=== PATIENT | female | born 1945 | race Caucasian/White ===

== ENCOUNTER → 2016-11-15 | Outpatient (CLI) | payer BC ==
[~2016-11-15] MED LIST: ATEN-173 PO; C COMPLEX PO; CAL PO; GLC500 PO; GLYB5TAB8 PO; MULT-506 PO; SUPER B PO
--- NOTE | 2016-11-15 10:59 | DIAGNOSTIC IMAGING REPORT ---
DOPPLER ULTRASOUND OF THE RENAL ARTERIES CLINICAL HISTORY: Hypertension. COMPARISON STUDY: Renal ultrasound dated 08/24/2015. Abdominal CT dated 04/26/2007. TECHNIQUE: Doppler sonography of the renal arteries was performed to assess renal artery stenosis. Images are reviewed in the transverse and longitudinal planes. FINDINGS: The kidneys demonstrate cortical atrophy and are without hydronephrosis. On the right, intrarenal arterial resistive indices range from 0.74 to 0.78. Intrarenal arterial waveforms are normal with brisk upstrokes. The right renal arterial waveform is normal, and velocities within the right renal artery measure up to 100 cm/sec. The right renal vein is patent. On the left, intrarenal arterial resistive indices measure 0.80. Intrarenal arterial waveforms are normal with brisk upstrokes. The left renal arterial waveform is normal, and velocities within the left renal artery measure up to 111 cm/sec. The left renal vein is patent. The abdominal aorta is patent. Velocities within the abdominal aorta measure up to 166 cm/s. IMPRESSION: There is no sonographic evidence of renal artery stenosis. Electronically signed by: Zak Collado M.D. 11/15/2016 10:57 AM Dictated Date/Time: 11/15/2016 10:54 AM
== END | disposition home or self-care (01) ==
LOC: C.ULTR 09:50
PROVIDERS: ATTEND Nurse Practitioner
DX: I10 Essential (primary) hypertension (principal)

== ENCOUNTER → 2016-11-19 | Outpatient (CLI) | payer BC ==
[2016-11-19 12:25] LABS: BASO % 0.3 %; BASO ABS # 0.02 K/uL (0-0.2); COMPLETE YES; EOS % 3.9 %; HEMATOCRIT 36.1 % (37-47); IG% 0.2 %; LYMPH % 27.1 %; LYMPH ABS # 1.58 K/uL (1.2-3.4); MEAN CELL VOLUME 96.8 fL (80-100); MEAN CORPUSCULAR HGB CONC 35.2 g/dl (32-36); MEAN PLATELET VOLUME 9.3 fL (7.4-10.4); MONO % 4.1 %; NEUT % 64.4 %; PLATELET COUNT 164 K/uL (130-400); RED BLOOD COUNT 3.73 M/uL (4.2-5.4); WHITE BLOOD COUNT 5.84 K/uL (4.8-10.8)
[2016-11-19 12:50] LABS: ESTIMATED AVERAGE GLUCOSE 174 mg/dl; HA1C FLAG Normal (Normal)
[2016-11-19 17:36] LABS: BLOOD UREA NITROGEN 36 mg/dl (7-18); BUN/CREATININE RATIO 20.9 (10-20); CALCIUM 9.9 mg/dl (8.5-10.1); CARBON DIOXIDE 23 mmol/L (21-32); CHLORIDE 102 mmol/L (98-107); GLUCOSE 192 mg/dl (70-99); MAGNESIUM 1.9 mg/dl (1.8-2.4); POTASSIUM 4.6 mmol/L (3.5-5.1); SODIUM 138 mmol/L (136-145)
[2016-11-19 17:46] LABS: PHOSPHORUS 3.4 mg/dl (2.5-4.9)
[2016-11-21 15:59] LABS: 18KDIGG BAND NONREACTIVE (NONREACTIVE); 23KDIGG BAND NONREACTIVE (NONREACTIVE); 23KDIGM BAND REACTIVE (NONREACTIVE); 28KDIGG BAND NONREACTIVE (NONREACTIVE); 30KDIGG BAND NONREACTIVE (NONREACTIVE); 39KDIGG BAND NONREACTIVE (NONREACTIVE); 39KDIGM BAND NONREACTIVE (NONREACTIVE); 41KDIGG BAND REACTIVE (NONREACTIVE); 41KDIGM BAND NONREACTIVE (NONREACTIVE); 45KDIGG BAND NONREACTIVE (NONREACTIVE); 58KDIGG BAND NONREACTIVE (NONREACTIVE); 66KDIGG BAND NONREACTIVE (NONREACTIVE); 93KDIGG BAND NONREACTIVE (NONREACTIVE)
== END | disposition home or self-care (01) ==
LOC: C.LABBFT 11:26
PROVIDERS: ATTEND Nurse Practitioner
DX: E55.9 Vitamin D deficiency, unspecified (principal); A69.20 Lyme disease, unspecified; E83.42 Hypomagnesemia; N18.3 Chronic kidney disease, stage 3 (moderate); E11.22 Type 2 diabetes mellitus with diabetic chronic kidney disease

== ENCOUNTER → 2016-12-24 | Outpatient (CLI) | payer BC ==
[2016-12-24 17:26] LABS: BLOOD UREA NITROGEN 31 mg/dl (7-18); BUN/CREATININE RATIO 19.3 (10-20); CALCIUM 9.5 mg/dl (8.5-10.1); CARBON DIOXIDE 28 mmol/L (21-32); CHLORIDE 104 mmol/L (98-107); GLUCOSE 115 mg/dl (70-99); PHOSPHORUS 3.6 mg/dl (2.5-4.9); POTASSIUM 4.7 mmol/L (3.5-5.1); SODIUM 139 mmol/L (136-145)
== END | disposition home or self-care (01) ==
LOC: C.LABBFT 12:22
PROVIDERS: ATTEND Internal Medicine Nephrology
DX: I10 Essential (primary) hypertension (principal); N18.3 Chronic kidney disease, stage 3 (moderate)

== ENCOUNTER → 2017-01-15 | Outpatient (CLI) | payer BC ==
--- NOTE | 2017-01-15 15:28 | MAMMOGRAPHY REPORT ---
BILATERAL DIGITAL SCREENING MAMMOGRAM WITH CAD: 01/15/2017 CLINICAL HISTORY: Routine screening. Patient has no complaints. TECHNIQUE: Bilateral CC and MLO views were obtained. Current study was also evaluated with a Comput er Aided Detection (CAD) system. COMPARISON: Comparison is made to exams dated: 01/13/2016 mammogram, 11/16/2013 mammogram, 11/14/2012 mammogram, 11/09/2011 mammogram, 11/06/2010 mammogram, and 11/04/2009 mammogram - [facility]. BREAST COMPOSITION: The tissue of both breasts is heterogeneously dense, which may obscure small ma sses. FINDINGS: There are mild vascular calcifications in the breasts. Scattered stable benign coarse alexis cifications. No new suspicious mass, architectural distortion or cluster of microcalcifications is seen. IMPRESSION: ACR BI-RADS CATEGORY 1: NEGATIVE There is no mammographic evidence of malignancy. A 1 year screening mammogram is recommended. The p atient will receive written notification of the results. Approximately 10% of breast cancers are not detected with mammography. A negative mammographic repor t should not delay biopsy if a clinically suggestive mass is present. Courtney Ornelas M.D. ay/:01/15/2017 15:19:51 Fried Cake Maker: Melissa MUNROER, M, [facility] letter sent: Normal 1/2 BI-RADS Code: ACR BI-RADS Category 1: Negative
== END | disposition home or self-care (01) ==
LOC: C.MAMM 14:35
PROVIDERS: ATTEND Nurse Practitioner
DX: Z12.31 Encounter for screening mammogram for malignant neoplasm of breast (principal)

== ENCOUNTER → 2017-04-09 | Outpatient (CLI) | payer BC ==
[2017-04-09 12:41] LABS: CHOLESTEROL/HDL RATIO 2.4; THYROID STIMULATING HORMONE 2.89 uIu/ml (0.300-4.500)
[2017-04-09 13:14] LABS: ESTIMATED AVERAGE GLUCOSE 160 mg/dl; HA1C FLAG Normal (Normal)
== END | disposition home or self-care (01) ==
LOC: C.LABBFT 09:37
PROVIDERS: ATTEND Nurse Practitioner
DX: E78.00 Pure hypercholesterolemia, unspecified (principal); E11.9 Type 2 diabetes mellitus without complications; E03.9 Hypothyroidism, unspecified

== ENCOUNTER → 2017-06-25 | Outpatient (CLI) | payer BC ==
[2017-06-25 12:17] LABS: BASO % 0.3 %; BASO ABS # 0.02 K/uL (0-0.2); COMPLETE YES; EOS % 3.7 %; HEMATOCRIT 36.7 % (37-47); IG% 0.2 %; LYMPH ABS # 2.27 K/uL (1.2-3.4); MEAN CORPUSCULAR HEMOGLOBIN 33.5 pg (25-34); MEAN CORPUSCULAR HGB CONC 33.5 g/dl (32-36); MEAN PLATELET VOLUME 9.8 fL (7.4-10.4); MONO % 5.1 %; NEUT % 55.7 %; PLATELET COUNT 156 K/uL (130-400); RED BLOOD COUNT 3.67 M/uL (4.2-5.4); WHITE BLOOD COUNT 6.48 K/uL (4.8-10.8)
[2017-06-25 12:26] LABS: URINE APPEARANCE CLEAR (CLEAR); URINE BILIRUBIN NEG (NEG); URINE COLOR YELLOW; URINE EPITHELIAL CELL AUTO 20-30 /lpf (0-5); URINE NITRITE NEG (NEG); URINE PH 5.5 (4.5-7.5); URINE SPECIFIC GRAVITY 1.013 (1.000-1.030); UROBILINOGEN NEG (NEG); ZZUR CULT IF INDIC CLEAN CATCH NO
[2017-06-25 12:35] LABS: MANUAL MICROSCOPIC REQUIRED? NO; REVIEW REQ? NO
[2017-06-25 12:40] LABS: ESTIMATED AVERAGE GLUCOSE 160 mg/dl; HA1C FLAG Normal (Normal)
[2017-06-25 12:53] LABS: URINE PROTIEN/CREAT RATIO 0.3 (0-0.2); URINE TOTAL PROTEIN 11.8 mg/dl (0-11.9)
[2017-06-25 12:55] LABS: BLOOD UREA NITROGEN 38 mg/dl (7-18); BUN/CREATININE RATIO 23.5 (10-20); CALCIUM 9.3 mg/dl (8.5-10.1); CARBON DIOXIDE 27 mmol/L (21-32); CHLORIDE 106 mmol/L (98-107); GLUCOSE 142 mg/dl (70-99); MAGNESIUM 1.8 mg/dl (1.8-2.4); POTASSIUM 4.8 mmol/L (3.5-5.1); SODIUM 138 mmol/L (136-145)
[2017-06-25 12:56] LABS: PHOSPHORUS 3.9 mg/dl (2.5-4.9)
== END | disposition home or self-care (01) ==
LOC: C.LABBFT 10:03
PROVIDERS: ATTEND Internal Medicine Nephrology
DX: N18.3 Chronic kidney disease, stage 3 (moderate) (principal); E11.29 Type 2 diabetes mellitus with other diabetic kidney complication; E11.22 Type 2 diabetes mellitus with diabetic chronic kidney disease

== ENCOUNTER → 2017-10-24 | Outpatient (CLI) | payer BC ==
[2017-10-24 12:17] LABS: BASO % 0.3 %; BASO ABS # 0.02 K/uL (0-0.2); COMPLETE YES; EOS % 2.5 %; HEMATOCRIT 35.6 % (37-47); IG% 0.2 %; LYMPH % 31.6 %; LYMPH ABS # 1.89 K/uL (1.2-3.4); MEAN CELL VOLUME 98.9 fL (80-100); MEAN CORPUSCULAR HEMOGLOBIN 33.6 pg (25-34); MEAN PLATELET VOLUME 9.7 fL (7.4-10.4); MONO % 7.5 %; NEUT % 57.9 %; PLATELET COUNT 146 K/uL (130-400); WHITE BLOOD COUNT 5.99 K/uL (4.8-10.8)
[2017-10-24 12:21] LABS: URINE APPEARANCE CLEAR (CLEAR); URINE BILIRUBIN NEG (NEG); URINE COLOR YELLOW; URINE EPITHELIAL CELL AUTO >30 /lpf (0-5); URINE NITRITE NEG (NEG); URINE SPECIFIC GRAVITY 1.018 (1.000-1.030); UROBILINOGEN NEG (NEG); ZZUR CULT IF INDIC CLEAN CATCH NO
[2017-10-24 12:36] LABS: BLOOD UREA NITROGEN 36 mg/dl (7-18); BUN/CREATININE RATIO 21.6 (10-20); CALCIUM 9.3 mg/dl (8.5-10.1); CARBON DIOXIDE 24 mmol/L (21-32); CHLORIDE 105 mmol/L (98-107); CREATININE 1.66 mg/dl (0.60-1.20); GLUCOSE 162 mg/dl (70-99); MAGNESIUM 1.8 mg/dl (1.8-2.4); POTASSIUM 4.3 mmol/L (3.5-5.1); SODIUM 136 mmol/L (136-145)
[2017-10-24 12:37] LABS: PHOSPHORUS 3.7 mg/dl (2.5-4.9)
[2017-10-24 12:38] LABS: MANUAL MICROSCOPIC REQUIRED? NO; REVIEW REQ? NO
[2017-10-24 12:40] LABS: URINE PROTIEN/CREAT RATIO 0.3 (0-0.2); URINE TOTAL PROTEIN 37.1 mg/dl (0-11.9)
[2017-10-24 12:45] LABS: ESTIMATED AVERAGE GLUCOSE 154 mg/dl; HA1C FLAG Normal (Normal)
[2017-10-25 13:32] LABS: FREE KAPPA 51.1 MG/L (3.3-19.4); FREE KAPPA/LAMBDA RATIO 1.81 (0.26-1.65); FREE LAMBDA 28.2 MG/L (5.7-26.3); GAMMA GLOBULIN 1.1 G/DL (0.8-1.7); TOTAL PROTEIN 7.1 G/DL (6.2-8.3)
[2017-10-25 15:00] LABS: 18KDIGG BAND NONREACTIVE (NONREACTIVE); 23KDIGG BAND NONREACTIVE (NONREACTIVE); 23KDIGM BAND REACTIVE (NONREACTIVE); 28KDIGG BAND NONREACTIVE (NONREACTIVE); 30KDIGG BAND NONREACTIVE (NONREACTIVE); 39KDIGG BAND NONREACTIVE (NONREACTIVE); 39KDIGM BAND NONREACTIVE (NONREACTIVE); 41KDIGG BAND REACTIVE (NONREACTIVE); 41KDIGM BAND REACTIVE (NONREACTIVE); 45KDIGG BAND NONREACTIVE (NONREACTIVE); 58KDIGG BAND NONREACTIVE (NONREACTIVE); 66KDIGG BAND NONREACTIVE (NONREACTIVE); 93KDIGG BAND NONREACTIVE (NONREACTIVE)
[2017-10-30 07:46] LABS: ALBUMIN % 69.52 %; CREATININE UR 115 MG/DL (20-320); GAMMA GLOBULIN % 10.42 %
== END | disposition home or self-care (01) ==
LOC: C.LABBFT 09:25
PROVIDERS: ATTEND Internal Medicine Nephrology
DX: N18.3 Chronic kidney disease, stage 3 (moderate) (principal); E11.22 Type 2 diabetes mellitus with diabetic chronic kidney disease; D89.2 Hypergammaglobulinemia, unspecified; A69.20 Lyme disease, unspecified

== ENCOUNTER → 2018-01-20 | Outpatient (CLI) | payer BC ==
[~2018-01-20] MED LIST changes: -ATEN-173 PO; +ATOR-22 PO; -C COMPLEX PO; -CAL PO; +CALC500T72 PO; +CARV25TA PO; +CHOL2000 PO; +COEN1TAB3 PO; -GLC500 PO; -GLYB5TAB8 PO; +INSDGI SC; +LEVO25TA5 PO; +LOSA50TA6 PO; +MAGN1CAP2 PO; +MISCCAP80 PO; +NVLG SC; +OMEG10007 PO; -SUPER B PO
--- NOTE | 2018-01-21 13:02 | MAMMOGRAPHY REPORT ---
BILATERAL DIGITAL SCREENING MAMMOGRAM TOMOSYNTHESIS WITH CAD: 01/20/2018 CLINICAL HISTORY: Routine screening. TECHNIQUE: Breast tomosynthesis in addition to standard 2D mammography was performed. Current study was also evaluated with a Computer Aided Detection (CAD) system. COMPARISON: Comparison is made to exams dated: 01/15/2017 mammogram, 01/13/2016 mammogram, 01/11/2015 m ammogram, 11/16/2013 mammogram, 11/14/2012 mammogram, and 11/09/2011 mammogram - [facility]. BREAST COMPOSITION: The tissue of both breasts is heterogeneously dense, which may obscure small mas ses. FINDINGS: The parenchymal pattern is similar to prior mammograms. There are scattered benign-appeari ng calcifications. Minimal vascular calcification. No developing mass, architectural distortion or cluster of suspicious microcalcifications is seen in either breast. IMPRESSION: ACR BI-RADS CATEGORY 2: BENIGN There is no mammographic evidence of malignancy. A 1 year screening mammogram is recommended. The pa tient will receive written notification of the results. Approximately 10% of breast cancers are not detected with mammography. A negative mammographic report should not delay biopsy if a clinically suggestive mass is present. Courtney Ornelas M.D. ay/:01/20/2018 15:37:51 Five Piece Expansion Maker Hand: Parker RAMIREZ)(M), [facility] letter sent: Normal 1/2 BI-RADS Code: ACR BI-RADS Category 2: Benign
== END | disposition home or self-care (01) ==
LOC: C.MAMM 14:45
PROVIDERS: ATTEND Nurse Practitioner
DX: Z12.31 Encounter for screening mammogram for malignant neoplasm of breast (principal)

== ENCOUNTER → 2018-01-31 | Outpatient (CLI) | payer BC ==
[2018-01-31 17:20] LABS: ALBUMIN 3.4 gm/dl (3.4-5.0); BLOOD UREA NITROGEN 30 mg/dl (7-18); CALCIUM 9.1 mg/dl (8.5-10.1); CARBON DIOXIDE 27 mmol/L (21-32); CREATININE 1.63 mg/dl (0.60-1.20); GLUCOSE 213 mg/dl (70-99); POTASSIUM 4.4 mmol/L (3.5-5.1); SODIUM 138 mmol/L (136-145)
[2018-01-31 17:22] LABS: PHOSPHORUS 3.5 mg/dl (2.5-4.9)
== END | disposition home or self-care (01) ==
LOC: C.LABBFT 14:29
PROVIDERS: ATTEND Internal Medicine Nephrology
DX: E83.42 Hypomagnesemia (principal)

== ENCOUNTER 2019-02-25 15:46 | Inpatient (IN) ==
[2019-02-25] MEDS ORDERED: LABETALOL HCL IV 5 MG/ML 20ML IV STA (16:30)
--- NOTE | 2019-02-25 16:45 | CT Scan Report ---
CT head/brain wo con CLINICAL HISTORY: 73 years-old Female with ataxia eval for stroke. Acute strokelike symptoms TECHNIQUE: Multiple axial CT images of the head were obtained without contrast. A dose lowering tech nique was utilized adhering to the principles of ALARA. CT DOSE: 537.48 mGy.cm COMPARISON: None. FINDINGS: No acute intracranial hemorrhage, midline shift, intracranial mass, hydrocephalus, territorial ischem ia or abnormal extra-axial collection. Senescent calcifications noted about the bilateral lentiform n uclei. Age-related involutional changes. Moderate to extensive white matter hypodensities are suggest dangelo of chronic microvascular ischemic disease. Multiple patchy hypodensities about the go radiata suggestive of encephalomalacia related to remote lacunar infarctions. Cerebral vascular calcificatio ns are noted. The calvarium is intact. The paranasal sinuses, mastoid air cells, and middle ear cavities are clear . IMPRESSION: 1. No acute intracranial hemorrhage, midline shift or territorial infarct. 2. Age-related involutional changes with suggestion of chronic microvascular ischemic disease. 3. Multiple patchy hypodensities about the go radiata suggest encephalomalacia related to remote lacunar infarctions. The above report was generated using voice recognition software. It may contain grammatical, syntax o r spelling errors. Electronically signed by: Boni Haas M.D. 02/25/2019 4:43 PM
--- NOTE | 2019-02-25 16:46 | XRay Report ---
XR chest 1V portable HISTORY: 73 years-old Female stroke symptoms acute strokelike symptoms COMPARISON: Chest radiograph 04/05/2015 TECHNIQUE: Portable AP view of the chest FINDINGS: Cardiomediastinal and hilar silhouettes appear unchanged. Calcification of the thoracic aortic arch. No pneumothorax, pleural effusion or overt pulmonary edema. No lobar airspace consolidation. Round ca lcification projecting over the abdominal left upper quadrant redemonstrated. Degenerative changes of the shoulders and spine. IMPRESSION: No acute process. The above report was generated using voice recognition software. It may contain grammatical, syntax o r spelling errors. Electronically signed by: Boni Haas M.D. 02/25/2019 4:44 PM
[2019-02-25 17:50] LABS: Basophils # (auto) 0.02 K/uL (0-0.2); Basophils % (auto) 0.3 %; Eosinophils # (auto) 0.22 K/uL (0-0.5); Hematocrit (blood only) 33.5 % (37-47); Hemoglobin 11.6 g/dL (12.0-16.0); Immature Granulocytes # (auto) 0.01 K/uL (0.00-0.02); Immature Granulocytes % (auto) 0.1 %; Lymphocytes # (auto) 1.92 K/uL (1.2-3.4); Lymphocytes % (auto) 25.9 %; Mean Corpuscular Hgb Conc 34.6 g/dL (32-36); Mean Corpuscular Volume 98.2 fL (80-100); Mean Platelet Volume 9.2 fL (7.4-10.4); Monocytes # (auto) 0.52 K/uL (0.11-0.59); Neutrophils # (auto) 4.71 K/uL (1.4-6.5); Neutrophils % (auto) 63.7 %; Platelet Count 130 K/uL (130-400); RDW Coefficient of Variation 12.5 % (11.5-14.5); RDW Standard Deviation 45.3 fL (36.4-46.3); Red Blood Count 3.41 M/uL (4.2-5.4)
[2019-02-25 18:04] LABS: INR 1.2 (0.9-1.1); Partial Thromboplastin Ratio 0.9; Partial Thromboplastin Time 24.1 Seconds (21.0-31.0); Prothrombin Time 11.8 Seconds (9.0-12.0)
[2019-02-25 18:08] LABS: Alanine Aminotransferase 30 U/L (12-78); Albumin Level 3.6 gm/dl (3.4-5.0); Aspartate Aminotransferase 19 U/L (15-37); BUN Creatinine Ratio 19.1 (10-20); Blood Urea Nitrogen 27 mg/dl (7-18); Calcium 9.9 mg/dl (8.5-10.1); Carbon Dioxide 25 mmol/L (21-32); Chloride 109 mmol/L (98-107); Creatinine Clr Calc Pharmacy 32.7 ml/min; Est GFR (African American) 42.9; Glucose 89 mg/dl (70-99); Magnesium 1.8 mg/dl (1.8-2.4); Potassium 4.3 mmol/L (3.5-5.1); Sodium 142 mmol/L (136-145)
[2019-02-25 18:13] LABS: Albumin Globulin Ratio 0.9 (0.9-2); Alkaline Phosphatase 67 U/L (45-117); Globulin 3.8 gm/dl (2.5-4.0); Total Protein 7.4 gm/dl (6.4-8.2); Troponin I < 0.015 ng/ml (0-0.045)
--- NOTE | 2019-02-25 20:26 | History & Physical Report ---
Date of Service February 25, 2019 Assessment & Plan (1) TIA (transient ischemic attack): I am doubtful that her symptoms are truly TIA may be hypertensive urgency she is related changes on her CT scan from chronic hypertension problems. She will be continued on her aspirin atorvastatin will be increased to 40 neurology consult be undertaken and blood pressure control be improved MRI of the brain will be ordered 1 dose of meclizine 25 was given in the evening to see if it improves her symptoms (2) Hypertension: His beta-princess carvedilol be continued as well as losartan and hydralazine will be added scheduled 25 every 8 hours. We will allow permissive hypertension in case she truly does have a TIA (3) Hyperlipidemia: Patient's Lipitor was increased from 20-40 for statin coverage for stroke prevention (4) Diabetes mellitus, type 2: Basal bolus insulin will be used with diabetic diet (5) Hypothyroidism: Continue Synthroid therapy she appears clinically euthyroid (6) DVT prophylaxis: Heparin is used for DVT prevention History of Present Illness Primary Care Provider: KIMMIE Jensen Patient presents after 2 days of having some pasty type of unsteadiness feeling in her head. She says that she went to a chiropractor had a 3 cervical spine adjustment and at which time she did check her blood pressure and she found to be markedly elevated. Weight at the chiropractor's office for recheck and once again was markedly elevated. In the emergency department she was evaluated and there were no acute changes on CT scan she is out of the time window for thromb olytic therapy. The CT scan showed multiple patchy hypodensities about the go radiata suggesting encephalomalacia related to remote lacunar infarctions as well as changes of chronic microvascular ischemic disease. In the emergency room she had no facial asymmetry she no palmar drift she did have a minor reproduction with modified Hallpike maneuver to perhaps have some vertiginous component of this. But her systolic blood pressures were routinely near 200. She said no chest pain shortness of breath associate with this patient. She denies any medical indiscretion. The only new medication regimen is been loratadine and is not been any decongestant associated with Allergies Allergy/AdvReac Type Severity Reaction Status Date / Time cortisone Allergy Mild "muscle Verified 02/25/19 17:08 weakness, makes me feel weird" clams Allergy Unknown VOMITING Verified 02/25/19 17:08 prednisone Allergy Unknown "MAKES ME Verified 02/25/19 17:08 FEEL WEIRD AND SPACEY" Home Medications Home Medications Medication Instructions Recorded Confirmed Type Basaglar KwikPen U-100 Insulin 34 unit SUBCUT HS 08/08/18 02/25/19 History Novolog Flexpen U-100 Insulin 1 dose SUBCUT AC 08/08/18 02/25/19 History ascorbic acid (vitamin C) 1 cap PO BID 08/08/18 02/25/19 History aspirin 81 mg PO QAM 08/08/18 02/25/19 History atorvastatin 20 mg PO HS 08/08/18 02/25/19 History carvedilol 25 mg PO BID 08/08/18 02/25/19 History cholecalciferol (vitamin D3) 4,000 unit PO QAM 08/08/18 02/25/19 History [Vitamin D3] coenzyme Q10 [Co Q-10] 100 mg PO QPM 08/08/18 02/25/19 History levothyroxine 25 mcg PO QAM 08/08/18 02/25/19 History losartan 50 mg PO QAM 08/08/18 02/25/19 History magnesium oxide 400 mg PO QAM 08/08/18 02/25/19 History multivitamin 1 tab PO QAM 08/08/18 02/25/19 History omega [id number]-iao-arq-fish oil [Fish Oil] 1 cap PO QAM 08/08/18 02/25/19 History loratadine 10 mg PO DAILY 02/25/19 02/25/19 History peg 3350-sod chlor-potass cit 1 dose PO DAILY PRN 02/25/19 02/25/19 History Past Med/Surg History Family History Father Family history of diabetes mellitus Mother Family history of diabetes mellitus Social History Preferred Language: [place]olan Communication Ability: Effective Beliefs That Will Affect Care: None Current Living Situation: Significant Other Feels Safe at Home: Yes Smoking Status: Never smoker Tobacco Type: cigarettes Second Hand Exposure: Yes ( smoked) Hx Alcohol Use: Yes Alcohol type: beer, wine and hard liquor Hx Substance Use: No Review of Systems Review of Systems: ROS: well nourished well developed. No double vision, she has history of diabetic retinopathy blurry vision No problems with speech or swallowing No palpitations, chest pain or pressure No Wheezing or breathing issues No abdominal pain nausea vomiting diarrhea changes in appetite or weight No burning urine urine frequency or changes in color No focal joint pain or muscle pain No skin rashes or oral lesions No unusual bruising or bleeding No focused back pain or numbness or loss of strength No changes in memory or confusion, complaints of feeling lightheaded and dizzy Physical Exam Physical Exam: The patient appeared well nourished and normally developed. Vital signs as documented. Marked systolic hypertension Head exam is unremarkable. normocephalic, atraumatic Neck is without jugular venous distension, thyromegaly, or lymphademopathy no carotid bruits are heard Lungs are clear to auscultation and percussion. Cardiac exam reveals Rhythm is regular. No gallops first and second heart sounds normal. Abdominal exam reveals normal bowel sounds, no masses, no organomegaly no bruits are present pulsatile masses Extremities are nonedematous and both pedal pulses are present Neurologic exam is A&Ox3, no focal deficits, strength is equal bilateral perhaps reproducible dizziness symptoms with position Psychologically seems anxious Skin is warm Dry without bruises or lesions Results & Data Vital Signs (Past 12 Hours) Vital Signs Temp Pulse Pulse Resp BP BP Pulse Ox 02/25/19 17:46 54 L 10 L 174/97 H 02/25/19 17:45 56 L 15 02/25/19 17:30 64 19 02/25/19 17:15 60 18 02/25/19 17:00 58 L 18 02/25/19 16:45 56 L 12 02/25/19 16:30 60 17 02/25/19 16:17 57 L 12 02/25/19 16:12 56 L 60 12 216/89 H 216/89 H 02/25/19 15:49 36.9 C 65 18 241/[address] head No acute intracranial hemorrhage, midline shift or territorial infarct. Age-related involutional changes with suggestion of chronic microvascular ischemic disease. Multiple patchy hypodensities about the go radiata suggest encephalomalacia related to remote lacunar infarctions.
[2019-02-25] MEDS ORDERED: NON-FORMULARY MEDICATION (Coenzyme Q10 [Co Q-10] 100 MG) PO SCH (21:28)
[2019-02-25] MEDS ORDERED: ONDANSETRON INJ 2 MG/ML 2 ML VIAL IV PRN (21:28)
[2019-02-25] MEDS ORDERED: DEXTROSE 50% 50 ML SYRINGE IV PRN (21:28)
[2019-02-25] MEDS ORDERED: GLUCOSE 10 TABS/TUBE PO PRN (21:28)
[2019-02-25] MEDS ORDERED: CARBOHYDRATES FOR HYPOGLYCEMIA PO PRN (21:28)
[2019-02-25] MEDS ORDERED: GLUCOSE 40% GEL 15 GM TUBE PO PRN (21:28)
[2019-02-25] MEDS ORDERED: GLUCAGON FOR INJ 1 MG VIAL SQ PRN (21:28)
[2019-02-25] MEDS ORDERED: PHARMACIST DISCHARGE MED REC CONSULT PRN (21:28)
[2019-02-25] MEDS ORDERED: MECLIZINE HCL 25 MG TAB PO PRN (21:28)
[2019-02-25] MEDS ORDERED: ACETAMINOPHEN 325 MG TAB PO PRN (21:28)
[2019-02-25] MEDS ORDERED: MECLIZINE HCL 25 MG TAB PO STA (21:40)
[2019-02-25] MEDS: INSULIN GLARGINE SOLOSTAR 100 UNITS/ML 3 ML PEN SQ SCH (23:07)
[2019-02-25] MEDS: CARVEDILOL 25 MG TAB PO SCH (23:07)
[2019-02-25] MEDS: HEPARIN SOD 5,000 UNIT/0.5 ML VIAL SQ SCH (23:08)
[2019-02-25] MEDS: ASCORBIC ACID 500 MG TAB PO SCH (23:08)
[2019-02-25] MEDS: ATORVASTATIN 20 MG TAB PO SCH (23:08)
[2019-02-25] MEDS ORDERED: LORazepam 0.5 MG/1 ML VIAL IV PRN (23:15)
[2019-02-25] MEDS: INSULIN ASPART 100 UNITS/ML 3 ML PEN SC SCH (23:17)
--- NOTE | 2019-02-26 00:38 | Emergency Department Note ---
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 The patient reports that she was being evaluated by her chiropractor for a neck adjustment and was referred her to the ER after her blood pressure was taken twice and was high. She denies any recent episodes of shortness of breath, palpitations, chest pain, back pain, or abdominal pain. She states however that she has had trouble walking since yesterday morning. She woke up with the symptoms. Her at bedside explains that the patient wobbles and acts like she is drunk. He notes that she did have a similar episode 2 years ago and was told it was secondary to hypertension and was started on medication. The patient reports that she has been taking it as prescribed. Per , the patient has had slow speech and slow walking for the same time as well. She denies any numbness or weakness on one side of her body. She notes that she does take a daily low-dose aspirin. She denies a history of strokes. Home Medications Home Medications Medication Instructions Recorded Confirmed Type Basaglar KwikPen U-100 Insulin 34 unit SUBCUT HS 08/08/18 02/25/19 History Novolog Flexpen U-100 Insulin 1 dose SUBCUT AC 08/08/18 02/25/19 History ascorbic acid (vitamin C) 1 cap PO BID 08/08/18 02/25/19 History aspirin 81 mg PO QAM 08/08/18 02/25/19 History atorvastatin 20 mg PO HS 08/08/18 02/25/19 History carvedilol 25 mg PO BID 08/08/18 02/25/19 History cholecalciferol (vitamin D3) 4,000 unit PO QAM 08/08/18 02/25/19 History [Vitamin D3] coenzyme Q10 [Co Q-10] 100 mg PO QPM 08/08/18 02/25/19 History levothyroxine 25 mcg PO QAM 08/08/18 02/25/19 History losartan 50 mg PO QAM 08/08/18 02/25/19 History magnesium oxide 400 mg PO QAM 08/08/18 02/25/19 History multivitamin 1 tab PO QAM 08/08/18 02/25/19 History omega 4-[id number]-ohv-fish oil [Fish Oil] 1 cap PO QAM 08/08/18 02/25/19 History loratadine 10 mg PO DAILY 02/25/19 02/25/19 History Allergies Allergy/AdvReac Type Severity Reaction Status Date / Time cortisone Allergy Mild "muscle Verified 02/25/19 17:08 weakness, makes me feel weird" clams Allergy Unknown VOMITING Verified 02/25/19 17:08 prednisone Allergy Unknown "MAKES ME Verified 02/25/19 17:08 FEEL WEIRD AND SPACEY" Past Med/Surg History Medical History Chronic back pain Diabetes mellitus, type 2 Diabetic retinopathy Hyperlipidemia Hypertension Hypothyroidism "low end of normal" Osteoarthritis Polycystic ovarian syndrome Surgical History History of bilateral cataract extraction History of breast biopsy right--benign History of carpal tunnel repair bilateral History of cholecystectomy History of colonoscopy History of dilatation and curettage History of surgery bilateral cyst removal from ovaries History of tonsillectomy and adenoidectomy History of tooth extraction wisdom teeth Family History Father Family history of diabetes mellitus Mother Family history of diabetes mellitus Social History Preferred Language: Vincentian Communication Ability: Effective 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 and A total of 10 systems reviewed and were otherwise negative Physical Exam Vital Signs Vital Signs - 24 hr 02/25/19 15:49 02/25/19 16:12 02/25/19 16:17 Temperature 36.9 C Temperature Source Oral Sepsis Recent Fever Within 48 Hours No Sepsis Action Taken by Nursing No Action Required Pulse Rate 65 56 L 57 L Pulse Rate [Finger] 60 Pulse Rhythm [Finger] Pulse Strength [Finger] Respiratory Rate 18 12 12 Respiratory Effort / Characteristics Non-Labored Spontaneous Respiratory Depth Normal Respiratory Pattern Regular Blood Pressure 241/84 H 216/89 H Blood Pressure [Left Arm] 216/89 H Blood Pressure [Right Arm] Blood Pressure Mean 136 131 Blood Pressure Mean [Left Arm] 131 Blood Pressure Mean [Right Arm] Blood Pressure Position [Left Arm] Blood Pressure Position [Right Arm] Pulse Oximetry 99 Oxygen Delivery Method Room Air 02/25/19 16:30 02/25/19 16:45 02/25/19 17:00 Temperature Temperature Source Sepsis Recent Fever Within 48 Hours Sepsis Action Taken by Nursing Pulse Rate 60 56 L 58 L Pulse Rate [Finger] Pulse Rhythm [Finger] Pulse Strength [Finger] Respiratory Rate 17 12 18 Respiratory Effort / Characteristics Respiratory Depth Respiratory Pattern Blood Pressure Blood Pressure [Left Arm] Blood Pressure [Right Arm] Blood Pressure Mean Blood Pressure Mean [Left Arm] Blood Pressure Mean [Right Arm] Blood Pressure Position [Left Arm] Blood Pressure Position [Right Arm] Pulse Oximetry Oxygen Delivery Method 02/25/19 17:15 02/25/19 17:30 02/25/19 17:45 Temperature Temperature Source Sepsis Recent Fever Within 48 Hours Sepsis Action Taken by Nursing Pulse Rate 60 64 56 L Pulse Rate [Finger] Pulse Rhythm [Finger] Pulse Strength [Finger] Respiratory Rate 18 19 15 Respiratory Effort / Characteristics Respiratory Depth Respiratory Pattern Blood Pressure Blood Pressure [Left Arm] Blood Pressure [Right Arm] Blood Pressure Mean Blood Pressure Mean [Left Arm] Blood Pressure Mean [Right Arm] Blood Pressure Position [Left Arm] Blood Pressure Position [Right Arm] Pulse Oximetry Oxygen Delivery Method 02/25/19 17:46 02/25/19 20:53 02/25/19 21:05 Temperature Temperature Source Sepsis Recent Fever Within 48 Hours Sepsis Action Taken by Nursing Pulse Rate 54 L 68 Pulse Rate [Finger] 68 Pulse Rhythm [Finger] Pulse Strength [Finger] Respiratory Rate 10 L 18 18 Respiratory Effort / Characteristics Respiratory Depth Respiratory Pattern Blood Pressure 174/97 H 187/82 H Blood Pressure [Left Arm] 187/82 H Blood Pressure [Right Arm] Blood Pressure Mean 122 Blood Pressure Mean [Left Arm] 117 Blood Pressure Mean [Right Arm] Blood Pressure Position [Left Arm] Blood Pressure Position [Right Arm] Pulse Oximetry 99 99 Oxygen Delivery Method Room Air Room Air 02/25/19 21:15 02/25/19 22:02 02/25/19 22:07 Temperature 36.9 C Temperature Source Oral Sepsis Recent Fever Within 48 Hours Sepsis Action Taken by Nursing Pulse Rate 74 Pulse Rate [Finger] 76 Pulse Rhythm [Finger] Regular Pulse Strength [Finger] Normal Respiratory Rate 16 Respiratory Effort / Characteristics Non-Labored Spontaneous Non-Labored Spontaneous Respiratory Depth Normal Normal Respiratory Pattern Regular Regular Blood Pressure Blood Pressure [Left Arm] 223/80 H Blood Pressure [Right Arm] Blood Pressure Mean Blood Pressure Mean [Left Arm] 127 Blood Pressure Mean [Right Arm] Blood Pressure Position [Left Arm] Lying Blood Pressure Position [Right Arm] Pulse Oximetry 99 Oxygen Delivery Method Room Air Room Air 02/25/19 22:21 02/25/19 23:34 Temperature 37.0 C Temperature Source Oral Sepsis Recent Fever Within 48 Hours Sepsis Action Taken by Nursing Pulse Rate Pulse Rate [Finger] 65 Pulse Rhythm [Finger] Pulse Strength [Finger] Respiratory Rate 18 Respiratory Effort / Characteristics Respiratory Depth Respiratory Pattern Blood Pressure Blood Pressure [Left Arm] 185/76 H Blood Pressure [Right Arm] 191/69 H Blood Pressure Mean Blood Pressure Mean [Left Arm] 112 Blood Pressure Mean [Right Arm] 109 Blood Pressure Position [Left Arm] Sitting Blood Pressure Position [Right Arm] Lying Pulse Oximetry 98 Oxygen Delivery Method Room Air Constitutional: Vital signs reviewed. Eyes: Pupils are equal round reactive to light. Conjunctiva are noninjected. ENT: Pharynx is clear without erythema or exudate. Mucous membranes are moist. Neck supple without meningeal signs. Respiratory: Clear to auscultation bilaterally. Breath sounds are equal bilaterally. Cardiovascular: Regular rate and rhythm. No rubs or gallops. GI: Soft, nondistended and nontender. Bowel sounds are present. Musculoskeletal: No peripheral edema. No lower extremity tenderness. Integumentary: No cyanosis. Neurological: The patient is awake and alert. Cranial nerves II-XII are intact. Motor is 5 out of 5 all extremities. Sensation is intact to light touch all extremities. Normal speech. No pronator drift. No limb ataxia. Psychiatric: Normal affect. Course 1623: The patient was evaluated in room A9A, and a complete history and physical examination were performed. 1711: I updated her on her CT results. They are still trying to get an IV access. 1818: I discussed the patients case with Dr. Comer [facility] Hospitalist. He will evaluate the patient for further management. 1821: I updated the patient on her test results and her blood pressure has significantly improved. Administered Medications Ascorbic Acid (Vitamin C) 500 mg PO BID YAMILA Stop: 03/27/19 21:59 Last Admin: 02/25/19 23:08 Dose: 500 mg Documented by: [id number] Atorvastatin Calcium (Lipitor) 40 mg PO HS YAMILA Stop: 03/27/19 21:27 Last Admin: 02/25/19 23:08 Dose: 40 mg Documented by: [id number] Carvedilol (Coreg) 25 mg PO BID YAMILA Stop: 03/27/19 21:59 Last Admin: 02/25/19 23:07 Dose: 25 mg Documented by: [id number] Heparin Sodium (Porcine) (Heparin Sodium (Porcine)) 5,000 units SQ Q12 YAMILA Stop: 03/27/19 21:59 Last Admin: 02/25/19 23:08 Dose: 5,000 units Documented by: [id number] Cosigned by: [id number] Hydralazine HCl (Apresoline) 25 mg PO Q8 YAMILA Stop: 03/27/19 21:59 Last Admin: 02/25/19 23:08 Dose: 25 mg Documented by: [id number] Insulin Aspart (Novolog Flexpen) 0 units SC ACHS YAMILA Stop: 03/27/19 21:59 Last Admin: 02/25/19 23:17 Dose: 7 units Documented by: [id number] Cosigned by: [id number] Insulin Glargine (Lantus Solostar Pen) 34 units SQ HS YAMILA Stop: 03/27/19 21:59 Last Admin: 02/25/19 23:07 Dose: 34 units Documented by: [id number] Cosigned by: [id number] Discontinued Medications Lorazepam (Ativan) 0.5 mg in 1 mls @ 0.5 mls/min IV TODAY@2315 PRN PRN Reason: Anxiety Stop: 02/26/19 00:30 Last Admin: 02/26/19 00:00 Dose: 0.5 mls/min Documented by: [id number] Labetalol HCl (Normodyne) 5 mg IV NOW STA Stop: 02/25/19 16:31 Last Admin: 02/25/19 17:29 Dose: 5 mg Documented by: [id number] Cosigned by: [id number] Meclizine HCl (Antivert) 25 mg PO NOW STA Stop: 02/25/19 21:41 Last Admin: 02/25/19 22:22 Dose: 25 mg Documented by: [id number] Medical Decision Making Differential Diagnosis Differential diagnosis includes: TIA, CVA, medication noncompliance, ICH, hyper tensive urgency. Medical Records Attestation: I reviewed the patient's medical records. I did perform a limited focused review of portions of the patient's old chart on the electronic medical record. The patient has had no recent pertinent visits to this hospital. Home Medications Current Medication List: was personally reviewed by me Laboratory Data Attestation: I reviewed the patient's lab results. Result diagrams: 02/25/19 17:27 02/25/19 17:27 Lab Results 02/25/19 02/25/19 02/25/19 Range/Units 17:27 17:27 17:27 WBC 7.40 (4.8-10.8) K/uL RBC 3.41 L (4.2-5.4) M/uL Hgb 11.6 L (12.0-16.0) g/dL Hct 33.5 L (37-47) % MCV 98.2 (80-100) fL MCH 34.0 (25-34) pg MCHC 34.6 (32-36) g/dL RDW Std Deviation 45.3 (36.4-46.3) fL RDW Coeff of Yesica 12.5 (11.5-14.5) % Plt Count 130 (130-400) K/uL MPV 9.2 (7.4-10.4) fL Immature Gran % (Auto) 0.1 % Neut % (Auto) 63.7 % Lymph % (Auto) 25.9 % [place] % (Auto) 7.0 % Eos % (Auto) 3.0 % Baso % (Auto) 0.3 % Immature Gran # (Auto) 0.01 (0.00-0.02) K/uL Neut # (Auto) 4.71 (1.4-6.5) K/uL Lymph # (Auto) 1.92 (1.2-3.4) K/uL [place] # (Auto) 0.52 (0.11-0.59) K/uL Eos # (Auto) 0.22 (0-0.5) K/uL Baso # (Auto) 0.02 (0-0.2) K/uL PT 11.8 (9.0-12.0) Seconds INR 1.2 H (0.9-1.1) APTT 24.1 (21.0-31.0) Seconds PTT Ratio 0.9 Sodium 142 (136-145) mmol/L Potassium 4.3 (3.5-5.1) mmol/L Chloride 109 H (98-107) mmol/L Carbon Dioxide 25 (21-32) mmol/L Anion Gap 8.0 (3-11) BUN 27 H (7-18) mg/dl Creatinine 1.39 H (0.6-1.2) mg/dl Est Cr Clr Drug Dosing 32.7 ml/min Est GFR ( Amer) 42.9 Est GFR (Non-Af Amer) 37.0 BUN/Creatinine Ratio 19.1 (10-20) Glucose 89 (70-99) mg/dl POC Glucose (70-99) Calcium 9.9 (8.5-10.1) mg/dl Magnesium 1.8 (1.8-2.4) mg/dl Total Bilirubin 1.0 (0.2-1) mg/dl AST 19 (15-37) U/L ALT 30 (12-78) U/L Alkaline Phosphatase 67 (45-117) U/L Troponin I < 0.015 (0-0.045) ng/ml Total Protein 7.4 (6.4-8.2) gm/dl Albumin 3.6 (3.4-5.0) gm/dl Globulin 3.8 (2.5-4.0) gm/dl Albumin/Globulin Ratio 0.9 (0.9-2) 02/25/19 Range/Units 22:23 WBC (4.8-10.8) K/uL RBC (4.2-5.4) M/uL Hgb (12.0-16.0) g/dL Hct (37-47) % MCV (80-100) fL MCH (25-34) pg MCHC (32-36) g/dL RDW Std Deviation (36.4-46.3) fL RDW Coeff of Yesica (11.5-14.5) % Plt Count (130-400) K/uL MPV (7.4-10.4) fL Immature Gran % (Auto) % Neut % (Auto) % Lymph % (Auto) % [place] % (Auto) % Eos % (Auto) % Baso % (Auto) % Immature Gran # (Auto) (0.00-0.02) K/uL Neut # (Auto) (1.4-6.5) K/uL Lymph # (Auto) (1.2-3.4) K/uL [place] # (Auto) (0.11-0.59) K/uL Eos # (Auto) (0-0.5) K/uL Baso # (Auto) (0-0.2) K/uL PT (9.0-12.0) Seconds INR (0.9-1.1) APTT (21.0-31.0) Seconds PTT Ratio Sodium (136-145) mmol/L Potassium (3.5-5.1) mmol/L Chloride (98-107) mmol/L Carbon Dioxide (21-32) mmol/L Anion Gap (3-11) BUN (7-18) mg/dl Creatinine (0.6-1.2) mg/dl Est Cr Clr Drug Dosing ml/min Est GFR ( Amer) Est GFR (Non-Af Amer) BUN/Creatinine Ratio (10-20) Glucose (70-99) mg/dl POC Glucose 275 H (70-99) Calcium (8.5-10.1) mg/dl Magnesium (1.8-2.4) mg/dl Total Bilirubin (0.2-1) mg/dl AST (15-37) U/L ALT (12-78) U/L Alkaline Phosphatase (45-117) U/L Troponin I (0-0.045) ng/ml Total Protein (6.4-8.2) gm/dl Albumin (3.4-5.0) gm/dl Globulin (2.5-4.0) gm/dl Albumin/Globulin Ratio (0.9-2) Imaging Data Radiologist's Impression: Radiology results as stated below per my review and the radiologist's interpretation: XR chest 1V portable HISTORY: 73 years-old Female stroke symptoms acute strokelike symptoms COMPARISON: Chest radiograph 04/05/2015 TECHNIQUE: Portable AP view of the chest FINDINGS: Cardiomediastinal and hilar silhouettes appear unchanged. Calcification of the thoracic aortic arch. No pneumothorax, pleural effusion or overt pulmonary edema. No lobar airspace consolidation. Round calcification projecting over the abdominal left upper quadrant redemonstrated. Degenerative changes of the shoulders and spine. IMPRESSION: No acute process. The above report was generated using voice recognition software. It may contain grammatical, syntax or spelling errors. Electronically signed by: Boni Haas M.D. 02/25/2019 4:[address] head/brain wo con CLINICAL HISTORY: 73 years-old Female with ataxia eval for stroke. Acute strokelike symptoms TECHNIQUE: Multiple axial CT images of the head were obtained without contrast. A dose lowering technique was utilized adhering to the principles of ALARA. CT DOSE: 537.48 mGy.cm COMPARISON: None. FINDINGS: No acute intracranial hemorrhage, midline shift, intracranial mass, hydrocephalus, territorial ischemia or abnormal extra-axial collection. Eri scent calcifications noted about the bilateral lentiform nuclei. Age-related involutional changes. Moderate to extensive white matter hypodensities are suggestive of chronic microvascular ischemic disease. Multiple patchy hypodensities about the go radiata suggestive of encephalomalacia related to remote lacunar infarctions. Cerebral vascular calcifications are noted. The calvarium is intact. The paranasal sinuses, mastoid air cells, and middle ear cavities are clear. IMPRESSION: 1. No acute intracranial hemorrhage, midline shift or territorial infarct. 2. Age-related involutional changes with suggestion of chronic microvascular ischemic disease. 3. Multiple patchy hypodensities about the go radiata suggest encephalomalacia related to remote lacunar infarctions. The above report was generated using voice recognition software. It may contain grammatical, syntax or spelling errors. Electronically signed by: Boni Haas M.D. 02/25/2019 4:43 PM ECG Data Attestation: I personally reviewed and interpreted this ECG as follows: Indication: other (stroke-like symptoms) Rate (beats per minute): 57 Rhythm: sinus bradycardia Findings: + ST depression (slight in lateral leads); no PVC and no ST elevation Comparison ECG Date: no prior available Blood Pressure Blood Pressure Findings: Elevated blood pressure Blood Pressure Disposition: further management by hospitalist [facility] Narrative I did evaluate the patient as noted above. The patient is presenting with elevated blood pressure with neurologic symptoms. Yesterday she woke up with ataxia. She states that she is walking as if she is intoxicated. IV access was established. The patient was placed on a continuous cardiac cath lab radiology technologist. Her blood pressure is significantly elevated. I did treat her with labetalol IV. I did order and personally review the patient's 12-lead EKG as described above. There is no evidence of ST elevation but the patient does have some slight depressions in the lateral leads. No old EKGs available for comparison. She denies any chest pain or shortness of breath. I did order and personally reviewed the images of the patient's chest x-ray as described above. I did order and review the patient's blood work as noted in the electronic medical record. Her creatinine is elevated. She is anemic. Troponin is negative. I did order a CT of the head. I did review the images myself as well as the radiology report as described above. I did discuss the test results with the patient. I did recommend hospitalization for further evaluation including MRI. I did discuss case with the hospitalist and transplant case manager. Impression & Plan Ataxia, Hypertensive emergency Discharge Plan Visit Data *Final* Discharge Date/Time: 02/25/19 21:05 Chief Complaint: Hypertension Stated Complaint: HYPERTENSION 200/100 ED Provider: Vazquez Lee Discharge Problem: Ataxia, Hypertensive emergency Patient Disposition: Admitted As Inpatient Discharge Instructions Interventions: ED Discharge Assessment Last Done: 02/25/19 21:05 The scribe's documentation has been prepared under my direction and personally reviewed by me in its entirety. I confirm that the note above accurately reflects all work, treatment, procedures, and medical decision making performed by me.
[2019-02-26] MEDS ORDERED: GADOBUTROL 65ML VIAL IV PRN (01:15)
[2019-02-26] MEDS ORDERED: PHARMACIST DISCHARGE MED REC CONSULT PRN (02:25)
[2019-02-26] MEDS: SODIUM CHLORIDE 0.9% 1000ML 1,000 ML IV SCH ×3 (02:45→17:27)
[2019-02-26] MEDS ORDERED: OPTIRAY 320 125ml IV PRN (05:27)
[2019-02-26] MEDS: LEVOTHYROXINE SODIUM 25 MCG TABLET PO SCH (06:14)
[2019-02-26 06:26] LABS: Estimated Average Glucose 160 mg/dl
--- NOTE | 2019-02-26 06:35 | CT Scan Report ---
CT angio neck with con HISTORY: Stroke left frontal lobe CVA TECHNIQUE: Multiaxial CT angiography of the neck was performed IV contrast: 100 cc All measure ments were calculated based on NASCET criteria. Maximum intensity projection images were also obtain ed. A dose lowering technique was utilized adhering to the principles of ALARA. COMPARISON STUDY: None. FINDINGS: The aortic arch and proximal great vessels are widely patent. Dense calcification of the c arotid bifurcations. 50 present stenosis right carotid bifurcation and proximal right internal caroti d artery. 40% stenosis left carotid bifurcation proximal left internal carotid artery. Vertebral basilar system is unremarkable. IMPRESSION:: 1. Significant calcific plaque dimension at the carotid bifurcations. 2. 50% stenosis right carotid bifurcation and right internal carotid artery. 3. 40% stenosis left carotid bifurcation and proximal left internal carotid artery. The above report was generated using voice recognition software. It may contain grammatical, syntax or spelling errors. Electronically signed by: Jerrell Delgadillo M.D. 02/26/2019 6:34 AM
[2019-02-26] MEDS ORDERED: INSULIN ASPART 100 UNITS/ML 3 ML PEN SQ SCH (07:30)
--- NOTE | 2019-02-26 07:44 | Magnetic Resonance Report ---
Brain MRI WITH AND WITHOUT CONTRAST HISTORY: Ataxia. eval for stroke TECHNIQUE: Multiplanar multisequence MRI of the brain was performed both before and after the intrave nous administration of contrast. COMPARISON STUDY: Head CT 02/25/2019. FINDINGS: A 1 cm focus of restricted diffusion seen within the periventricular white matter of the le ft parietal/frontal lobe junction. This is consistent with a small acute infarct. Multiple additional old small periventricular infarcts are noted. The major vascular flow-voids at the skull base are we ll-maintained. The paranasal sinuses and mastoid air cells are clear. The midline structures are inta ct. Periventricular and subcortical white matter T2 hyperintensity favors microvascular ischemic [facility]. There is no mass, hematoma, midline shift. Mild atrophic changes are noted. No abnormal enhanceme nt. IMPRESSION: A small acute infarct within the left periventricular white matter. Electronically signed by: Tyree Ruano M.D. 02/26/2019 7:43 AM
[2019-02-26 07:49] LABS: Basophils # (auto) 0.02 K/uL (0-0.2); Basophils % (auto) 0.3 %; Eosinophils # (auto) 0.17 K/uL (0-0.5); Eosinophils % (auto) 2.7 %; Hematocrit (blood only) 31.2 % (37-47); Hemoglobin 11.1 g/dL (12.0-16.0); Immature Granulocytes # (auto) 0.02 K/uL (0.00-0.02); Immature Granulocytes % (auto) 0.3 %; Lymphocytes # (auto) 1.98 K/uL (1.2-3.4); Lymphocytes % (auto) 31.9 %; Mean Corpuscular Hgb Conc 35.6 g/dL (32-36); Mean Corpuscular Volume 98.4 fL (80-100); Mean Platelet Volume 9.6 fL (7.4-10.4); Monocytes # (auto) 0.41 K/uL (0.11-0.59); Monocytes % (auto) 6.6 %; Neutrophils # (auto) 3.61 K/uL (1.4-6.5); Neutrophils % (auto) 58.2 %; Platelet Count 122 K/uL (130-400); RDW Coefficient of Variation 12.4 % (11.5-14.5); RDW Standard Deviation 44.9 fL (36.4-46.3); Red Blood Count 3.17 M/uL (4.2-5.4); White Blood Count 6.21 K/uL (4.8-10.8)
--- NOTE | 2019-02-26 07:50 | CT Scan Report ---
CT ANGIOGRAM OF THE BRAIN CLINICAL HISTORY: Lacunar infarct of the left periventricular white matter. COMPARISON STUDY: CT of the brain dated 02/25/2019. MRI of the brain dated 02/26/2019. TECHNIQUE: Following the IV administration of 119 cc of Optiray 320, CT angiogram of the brain was pe rformed from the skull base to the vertex. Images are reviewed in the axial, sagittal, and coronal pl anes. 3-D MIPS images are created and assessed. IV contrast was administered without complication. A dose lowering technique was utilized adhering to the principles of ALARA. FINDINGS: Brain parenchyma: There is age-related involutional change noting mild subcortical and periventricula r microangiopathic disease. Mineralization is noted in the basal ganglia. There is no hemorrhage, mas s effect, or evidence of acute territorial ischemia by CT criteria. There is no evidence of enhancing mass lesion on the angiogram phase images. No extra-axial fluid collection is seen. Dial-white matte r differentiation is preserved. Ventricles, sulci, and cisterns: Prominent secondary to involutional change. CT angiogram of the brain: There is atherosclerotic calcification of the cavernous carotid arteries. There is a large left posterior communicating artery with a hypoplastic left P1 segment. The internal carotid arteries are widely patent, as are the anterior and middle cerebral arteries. The vertebroba silar system and posterior cerebral arteries are widely patent. The vertebral arteries are codominant . There is no aneurysm, high-grade stenosis, or focal vessel cutoff identified throughout the intracr anial circulation. Dural sinuses: Clear as visualized. Orbits: The bony orbits are intact. The orbital contents are normal as visualized noting bilateral oc ular lens implants. Sinuses and mastoids: The paranasal sinuses are clear. The mastoid air cells are well pneumatized. Calvarium: Unremarkable. IMPRESSION: 1. There is no hemorrhage, mass effect, or evidence of acute territorial ischemia by CT criteria on t his angiographic phase examination. The lacunar infarct seen by MRI is not well assessed by CT. 2. Unremarkable CT angiogram of the brain. Electronically signed by: Zak Collado M.D. 02/26/2019 7:49 AM
[2019-02-26 08:16] LABS: Estimated Average Glucose 160 mg/dl
[2019-02-26 08:26] LABS: BUN Creatinine Ratio 20.9 (10-20); Blood Urea Nitrogen 29 mg/dl (7-18); Calcium 8.7 mg/dl (8.5-10.1); Carbon Dioxide 23 mmol/L (21-32); Chloride 109 mmol/L (98-107); Cholesterol 119 mg/dl (0-200); Creatinine Clr Calc Pharmacy 32.2 ml/min; Est GFR (African American) 42.9; Glucose 105 mg/dl (70-99); Potassium 3.9 mmol/L (3.5-5.1); Sodium 140 mmol/L (136-145); Triglycerides 282 mg/dl (0-150); VLDL Cholesterol 56 mg/dl
[2019-02-26 08:31] LABS: Chol HDL Ratio 3; HDL Cholesterol 40 mg/dl; LDL Cholesterol Calculated 23 mg/dl; Troponin I < 0.015 ng/ml (0-0.045)
[2019-02-26] MEDS: HEPARIN SOD 5,000 UNIT/0.5 ML VIAL SQ SCH ×2 (08:31→20:57)
[2019-02-26] MEDS: MULTIVITAMIN TAB PO SCH (08:32)
[2019-02-26] MEDS: MAGNESIUM OXIDE 400 MG TAB PO SCH (08:32)
[2019-02-26] MEDS: CHOLECALCIFEROL 1,000 UNITS TAB PO SCH (08:32)
[2019-02-26] MEDS: OMEGA-3 (PURIFIED FISH OIL) 1 GM CAP PO SCH (08:32)
[2019-02-26] MEDS: CARVEDILOL 25 MG TAB PO SCH ×2 (08:32→20:57)
[2019-02-26] MEDS: ASCORBIC ACID 500 MG TAB PO SCH ×2 (08:32→20:58)
[2019-02-26] MEDS: INSULIN ASPART 100 UNITS/ML 3 ML PEN SC SCH ×4 (08:33→20:56)
[2019-02-26] MEDS ORDERED: ASPIRIN 325 MG ECTAB PO SCH (09:00)
[2019-02-26] MEDS ORDERED: LOSARTAN POTASSIUM 50 MG TAB PO SCH (09:00)
--- NOTE | 2019-02-26 10:25 | Neurology Consultation ---
Date of Consultation February 26, 2019 Assessment & Plan (1) Acute ischemic stroke: This is a 73-year-old female with a subacute tiny left periventricular/go radiata ischemic stroke. Likely small vessel etiology. Residual neurological deficits of minimal cognitive and possible minimal right upper extremity pronator drift. Stroke risk factors include diabetes and hypertension. Recommendations: Recommend changing home aspirin to Plavix 75 mg daily for secondary stroke prevention. Continue home statin medication without change. Lowering total cholesterol below [address] her at risk for intracranial hemorrhage. Follow-up echocardiogram results to rule out cardioembolic sources for stroke. Avoid dehydration and hypotension Blood pressure recommendations while in hospital 175/95-150/80 For the first month after hospital discharge, blood pressure recommendations 150/90-130/80. After the first month, blood pressure recommendations 130/80-110/70 Follow-up PT/OT and speech recommendations for discharge planning. Neurological recommendations for stroke risk factor modifications: Total cholesterol goal 100-200, and LDL goal less than 70 (at goal) Hemoglobin A1c goal less than 7 Encourage regular cardiovascular exercise at least 30 minutes 3 times per week Anticipate that she should be able to go home later today if no concerns with echocardiogram or physical therapy evaluation. Hospital Follow-up in neurology clinic in 1 month after discharge. Thank you for allowing me to participate in this patient's care. If there is any questions or concerns, feel free to call/page me. History of Present Illness Reason for Consultation: Consultation for strokelike symptoms Attending Physician: Todd Vogt History of Present Illness This is a 73-year-old right-handed female who presents with feeling off and unstable since Saturday. Was found to be in hypertensive emergency. She denies any focal neurological symptoms. No changes with her vision. She reports feeling foggy. Reports that her thought that she was having word finding trouble, but per her report she just felt foggy. No new neurological symptoms this morning. Patient denies any chest pain, heart palpitations, or shortness of breath. MRI of the brain report and images reviewed by myself. The patient has a tiny subacute left periventricular/go radiata ischemic stroke. Also has signs of chronic bilateral cerebral small vessel ischemic disease. CTA of the head and neck was notable for 50% stenosis of the right carotid and proximal right ICA and 40% stenosis of the left carotid and proximal left ICA. Labs included creatinine of 1.3, hemoglobin A1c of 7.2, total cholesterol 119, LDL 23, HDL 40, triglycerides 282. Past medical history significant for diabetes type 2 insulin-dependent and hypertension (despite being on a statin medication she reports that this was for other reasons as her cholesterol has never been elevated) Family history notable for mother who had TIAs in her 70s. Both parents had diabetes and hypertension Social history: Typically independent her activities of daily living. She reports that she exercises on a regular basis. No tobacco use. Allergies Allergy/AdvReac Type Severity Reaction Status Date / Time cortisone Allergy Mild "muscle Verified 02/25/19 17:08 weakness, makes me feel weird" clams Allergy Unknown VOMITING Verified 02/25/19 17:08 prednisone Allergy Unknown "MAKES ME Verified 02/25/19 17:08 FEEL WEIRD AND SPACEY" Home Medications Home Medications Medication Instructions Recorded Confirmed Type Basaglar KwikPen U-100 Insulin 34 unit SUBCUT HS 08/08/18 02/25/19 History Novolog Flexpen U-100 Insulin 1 dose SUBCUT AC 08/08/18 02/25/19 History ascorbic acid (vitamin C) 1 cap PO BID 08/08/18 02/25/19 History aspirin 81 mg PO QAM 08/08/18 02/25/19 History atorvastatin 20 mg PO HS 08/08/18 02/25/19 History carvedilol 25 mg PO BID 08/08/18 02/25/19 History cholecalciferol (vitamin D3) 4,000 unit PO QAM 08/08/18 02/25/19 History [Vitamin D3] coenzyme Q10 [Co Q-10] 100 mg PO QPM 08/08/18 02/25/19 History levothyroxine 25 mcg PO QAM 08/08/18 02/25/19 History losartan 50 mg PO QAM 08/08/18 02/25/19 History magnesium oxide 400 mg PO QAM 08/08/18 02/25/19 History multivitamin 1 tab PO QAM 08/08/18 02/25/19 History omega 9-miy-oeu-fish oil [Fish Oil] 1 cap PO QAM 08/08/18 02/25/19 History loratadine 10 mg PO DAILY 02/25/19 02/25/19 History Patient History Medical History Chronic back pain Diabetes mellitus, type 2 Diabetic retinopathy Hyperlipidemia Hypertension Hypothyroidism "low end of normal" Osteoarthritis Polycystic ovarian syndrome Surgical History History of bilateral cataract extraction History of breast biopsy right--benign History of carpal tunnel repair bilateral History of cholecystectomy History of colonoscopy History of dilatation and curettage History of surgery bilateral cyst removal from ovaries History of tonsillectomy and adenoidectomy History of tooth extraction wisdom teeth Family History Father Family history of diabetes mellitus Mother Family history of diabetes mellitus Social History Preferred Language: Korean Communication Ability: Effective Physical Science Professor Required: No Beliefs That Will Affect Care: None Current Living Situation: Significant Other Other Information That Helps Us Care for You: No Feels Safe at Home: Yes Safety Concerns: Feels Safe At This Time Smoking Status: Former smoker Tobacco Type: cigarettes Second Hand Exposure: Yes ( smoked) Hx Alcohol Use: Yes Alcohol type: beer, wine and hard liquor Hx Substance Use: No Review of Systems Review of Systems: All systems reviewed & are unremarkable except as noted in HPI & below Physical Exam Physical Exam: Gen.: Patient is alert and oriented in no acute distress lying in bed Heart: Regular rate and rhythm Extremities: No gross deformities or rashes noted Neurological examination: Mental status: Patient is alert and oriented to person place and time. Able to give own history. Good fund of knowledge. Attention and concentration normal for the situation. Recent and remote memory intact Speech is fluent without any dysarthria or aphasia noted Cranial nerves: Funduscopic examination was unremarkable with no signs of papilledema. Pupils equally round and reactive to light. Extraocular muscles intact without nystagmus. No facial asymmetry noted. Facial sensation intact. Tongue midline. Good palatal elevation. Good shoulder shrug bilaterally. Hearing grossly intact voice. Strength: 5/5 both proximal and distal in all extremities. May be a minimal pronator drift of the right upper extremity.Tone is normal. Sensation: Grossly intact to light touch in all extremities Deep tendon reflexes: +1 in bilateral biceps and patellar. Coordination: Patient has good finger to nose without dysmetria Station within the bed is normal. Results & Data Vital Signs (Past 12 Hours) Vital Signs Temp Pulse Pulse Resp BP BP Pulse Ox 02/26/19 08:00 69 02/26/19 07:35 36.8 C 66 18 151/62 H 96 02/26/19 03:43 36.7 C 59 L 16 101/62 99 02/26/19 01:43 65 130/64 02/25/19 23:34 37.0 C 65 18 191/69 H 98 02/25/19 22:21 185/76 H
[2019-02-26] MEDS ORDERED: Nursing to Pharmacy Communication ONE (14:01)
[2019-02-26] MEDS: CLOPIDOGREL BISULFATE 75 MG TAB PO SCH (18:49)
[2019-02-26] MEDS: INSULIN GLARGINE SOLOSTAR 100 UNITS/ML 3 ML PEN SQ SCH (20:56)
[2019-02-26] MEDS: ATORVASTATIN 20 MG TAB PO SCH (20:58)
--- NOTE | 2019-02-26 21:29 | Hospitalist Progress Note ---
Date of Service February 26, 2019 Assessment & Plan (1) Acute ischemic stroke: left periventricular stroke. small, fortunately no significant deficits from such. likely small vessel ischemic stroke. echo w/o source of thrombus. b/l carotids with mild ICA stenosis but unlikely to have contributed. no a. fib on monitor thus far. appreciate neuro consult. change asa to plavix for secondary stroke prevention. lipids controlled w/ statin. (LDL well below 70). PT, OT, speech eval. needs better BP control. Present on Admission?: Yes (2) Essential (primary) hypertension: Allow permissiveness next 24 hours then begin to titrate to goal of about 150 systolic in house. (3) Hypothyroidism: cont synthroid (4) Diabetes mellitus type 2, uncontrolled: a1c 7.2% continue current management (5) Hyperlipidemia: statin LDL at goal (6) Carotid artery stenosis: mild routine surveillance in 1 year with repeat carotid duplex (7) Chronic kidney disease, stage 3a: hydrate today due to recent CT contrast repeat BMP am (8) DVT prophylaxis: heparin SC extensively updated at bedside Subjective pt denies any focal neuro deficits no dysphagia no speech issues no sensory issues denies ataxia or gait issues tele stable overnight Review of Systems Constitutional: no fever Respiratory: no cough and no dyspnea Cardiovascular: no chest pain Gastrointestinal: no abdominal pain Physical Exam Constitutional: well developed and well nourished; no acute distress and no altered mental status ENMT: external ear and nose normal, oropharynx normal Respiratory: normal respiratory effort, lungs clear to auscultation Cardiovascular: Rate/Rhythm: regular rate and regular rhythm Heart Sounds: normal S1 and normal S2; no murmur Vessels: posterior tibial pulses present and dorsalis pedis pulses present; no JVD Gastrointestinal (Abdomen): normal bowel sounds, soft, nontender, no hepatosplenomegaly Neurologic: moves all extremities; no focal motor deficits Speech / Cognition: normal speech no pronator drift; no dysarthria or aphasia Psychiatric: A+Ox3, euthymic affect Results & Data Vital Signs (Past 12 Hours) Vital Signs Temp Pulse Pulse Resp BP BP Pulse Ox 02/26/19 19:24 37.2 C 62 18 153/69 H 98 02/26/19 15:17 36.8 C 63 18 152/68 H 99 02/26/19 14:47 60 02/26/19 14:00 146/68 H 02/26/19 10:56 36.8 C 68 18 149/60 H 99 Laboratory Results Laboratory Results - last 24 hr 02/25/19 02/25/19 02/26/19 17:27 22:23 07:02 WBC 6.21 RBC 3.17 L Hgb 11.1 L Hct 31.2 L MCV 98.4 MCH 35.0 H MCHC 35.6 RDW Std Deviation 44.9 RDW Coeff of Yes[place] 12.4 Plt Count 122 L MPV 9.6 Immature Gran % (Auto) 0.3 Neut % (Auto) 58.2 Lymph % (Auto) 31.9 [place] % (Auto) 6.6 Eos % (Auto) 2.7 Baso % (Auto) 0.3 Immature Gran # (Auto) 0.02 Neut # (Auto) 3.61 Lymph # (Auto) 1.98 [place] # (Auto) 0.41 Eos # (Auto) 0.17 Baso # (Auto) 0.02 Sodium Potassium Chloride Carbon Dioxide Anion Gap BUN Creatinine Est Cr Clr Drug Dosing Est GFR ( Amer) Est GFR (Non-Af Amer) BUN/Creatinine Ratio Glucose POC Glucose 275 H Estimat Average Glucose 160 Hemoglobin A1c 7.2 H Calcium Troponin I Triglycerides Cholesterol LDL Cholesterol, Calc VLDL Cholesterol, Calc HDL Cholesterol Cholesterol/HDL Ratio 02/26/19 02/26/19 02/26/19 07:02 07:02 07:07 WBC RBC Hgb Hct MCV MCH MCHC RDW Std Deviation RDW Coeff of Yesica Plt Count MPV Immature Gran % (Auto) Neut % (Auto) Lymph % (Auto) [place] % (Auto) Eos % (Auto) Baso % (Auto) Immature Gran # (Auto) Neut # (Auto) Lymph # (Auto) [place] # (Auto) Eos # (Auto) Baso # (Auto) Sodium 140 Potassium 3.9 Chloride 109 H Carbon Dioxide 23 Anion Gap 8.0 BUN 29 H Creatinine 1.39 H Est Cr Clr Drug Dosing 32.2 Est GFR ( Amer) 42.9 Est GFR (Non-Af Amer) 37.0 BUN/Creatinine Ratio 20.9 H Glucose 105 H POC Glucose 118 H Estimat Average Glucose 160 Hemoglobin A1c 7.2 H Calcium 8.7 Troponin I < 0.015 Triglycerides 282 H Cholesterol 119 LDL Cholesterol, Calc 23 VLDL Cholesterol, Calc 56 HDL Cholesterol 40 Cholesterol/HDL Ratio 3 02/26/19 02/26/19 02/26/19 11:12 16:11 20:27 WBC RBC Hgb Hct MCV MCH MCHC RDW Std Deviation RDW Coeff of Yesica Plt Count MPV Immature Gran % (Auto) Neut % (Auto) Lymph % (Auto) [place] % (Auto) Eos % (Auto) Baso % (Auto) Immature Gran # (Auto) Neut # (Auto) Lymph # (Auto) [place] # (Auto) Eos # (Auto) Baso # (Auto) Sodium Potassium Chloride Carbon Dioxide Anion Gap BUN Creatinine Est Cr Clr Drug Dosing Est GFR ( Amer) Est GFR (Non-Af Amer) BUN/Creatinine Ratio Glucose POC Glucose 193 H 143 H 167 H Estimat Average Glucose Hemoglobin A1c Calcium Troponin I Triglycerides Cholesterol LDL Cholesterol, Calc VLDL Cholesterol, Calc HDL Cholesterol Cholesterol/HDL Ratio (1) Hypothyroidism Hypothyroidism type: acquired Qualified Code(s): E03.9 - Hypothyroidism, unspecified (2) Diabetes mellitus type 2, uncontrolled Glycemic state: with hyperglycemia Qualified Code(s): E11.65 - Type 2 diabetes mellitus with hyperglycemia (3) Hyperlipidemia Hyperlipidemia type: mixed hyperlipidemia Qualified Code(s): E78.2 - Mixed hyperlipidemia (4) Carotid artery stenosis Laterality: bilateral Qualified Code(s): I65.23 - Occlusion and stenosis of bilateral carotid arteries
[2019-02-27] MEDS: LEVOTHYROXINE SODIUM 25 MCG TABLET PO SCH (05:23)
[2019-02-27 05:32] LABS: Basophils # (auto) 0.01 K/uL (0-0.2); Basophils % (auto) 0.2 %; Eosinophils # (auto) 0.19 K/uL (0-0.5); Eosinophils % (auto) 2.9 %; Hematocrit (blood only) 31.4 % (37-47); Immature Granulocytes # (auto) 0.01 K/uL (0.00-0.02); Immature Granulocytes % (auto) 0.2 %; Lymphocytes % (auto) 30.5 %; Mean Corpuscular Volume 97.5 fL (80-100); Mean Platelet Volume 9.4 fL (7.4-10.4); Monocytes # (auto) 0.47 K/uL (0.11-0.59); Monocytes % (auto) 7.2 %; Neutrophils # (auto) 3.88 K/uL (1.4-6.5); Platelet Count 115 K/uL (130-400); RDW Coefficient of Variation 12.3 % (11.5-14.5); RDW Standard Deviation 44.1 fL (36.4-46.3); Red Blood Count 3.22 M/uL (4.2-5.4); White Blood Count 6.56 K/uL (4.8-10.8)
[2019-02-27 06:09] LABS: BUN Creatinine Ratio 18.7 (10-20); Calcium 8.2 mg/dl (8.5-10.1); Creatinine Clr Calc Pharmacy 22.8 ml/min; Est GFR (African American) 27.8; Potassium 4.6 mmol/L (3.5-5.1)
[2019-02-27] MEDS: INSULIN ASPART 100 UNITS/ML 3 ML PEN SC SCH ×4 (08:50→20:57)
[2019-02-27] MEDS: HEPARIN SOD 5,000 UNIT/0.5 ML VIAL SQ SCH ×2 (08:51→20:56)
[2019-02-27] MEDS: CARVEDILOL 25 MG TAB PO SCH ×2 (08:51→20:56)
[2019-02-27] MEDS: OMEGA-3 (PURIFIED FISH OIL) 1 GM CAP PO SCH (08:52)
[2019-02-27] MEDS: MAGNESIUM OXIDE 400 MG TAB PO SCH (08:52)
[2019-02-27] MEDS: MULTIVITAMIN TAB PO SCH (08:52)
[2019-02-27] MEDS: CHOLECALCIFEROL 1,000 UNITS TAB PO SCH (08:53)
[2019-02-27] MEDS: CLOPIDOGREL BISULFATE 75 MG TAB PO SCH (08:53)
[2019-02-27] MEDS: ASCORBIC ACID 500 MG TAB PO SCH ×2 (08:53→20:57)
[2019-02-27] MEDS: SODIUM CHLORIDE 0.9% 1000ML 1,000 ML IV SCH ×2 (09:27→23:11)
[2019-02-27 15:50] LABS: BUN Creatinine Ratio 20.2 (10-20); Calcium 8.8 mg/dl (8.5-10.1); Creatinine Clr Calc Pharmacy 24.3 ml/min; Est GFR (African American) 29.9; Est GFR (Non-African American) 25.8
[2019-02-27] MEDS ORDERED: AMLODIPINE BESYLATE 5 MG TAB PO ONE (16:50)
[2019-02-27] MEDS: ATORVASTATIN 20 MG TAB PO SCH (20:57)
[2019-02-27] MEDS: INSULIN GLARGINE SOLOSTAR 100 UNITS/ML 3 ML PEN SQ SCH (20:58)
--- NOTE | 2019-02-27 21:17 | Hospitalist Progress Note ---
Date of Service February 27, 2019 Assessment & Plan (1) Acute ischemic stroke: left periventricular stroke. small, fortunately no significant deficits from such on exam. likely small vessel ischemic stroke. echo w/o source of thrombus. b/l carotids with mild ICA stenosis but unlikely to have contributed. no a. fib on monitor thus far. appreciate neuro consult. changed asa to plavix for secondary stroke prevention. lipids controlled w/ statin. (LDL well below 70). PT, OT, speech evals appreciated. no services needed. BPs still markedly elevated. NO d/c today. Start norvasc 5mg daily. follow. (2) Essential (primary) hypertension: SBPs >200 today. and labile. add norvasc 5mg daily. follow. would want SBPs at least 150-160 consistently before d/c home. (3) Hypothyroidism: cont synthroid (4) Diabetes mellitus type 2, uncontrolled: a1c 7.2% continue current management glucose acceptable while here (5) Hyperlipidemia: statin LDL at goal (6) Carotid artery stenosis: mild b/l on imaging routine surveillance in 1 year with repeat carotid duplex (7) Chronic kidney disease, stage 3a: very mild acute kidney injury in setting of stroke, elevated BPs and recent CT contrast HYDRATE repeat BMP later today and in am baseline Cr about 1.4 to 1.5 or so (8) DVT prophylaxis: heparin SC extensively updated at bedside hopefully home on Saturday IF 1. BPs are improved 2. creatinine is stable Subjective tele w/o a fib overnight patient feels well no new neuro symptoms denies ANY complaints steady on feet Unfortunately BPs have been quite high today Review of Systems Constitutional: no fever, no chills, no fatigue and no anorexia Respiratory: no dyspnea Cardiovascular: no chest pain Gastrointestinal: no abdominal pain, no nausea and no vomiting Neurologic: no paralysis and no loss of sensation Physical Exam Constitutional: well developed and well nourished; no acute distress and no altered mental status ENMT: external ear and nose normal, oropharynx normal Respiratory: normal respiratory effort, lungs clear to auscultation Cardiovascular: Rate/Rhythm: regular rate and regular rhythm Heart Sounds: normal S1 and normal S2; no murmur Vessels: posterior tibial pulses present and dorsalis pedis pulses present; no JVD Gastrointestinal (Abdomen): normal bowel sounds, soft, nontender, no hepatosplenomegaly Neurologic: moves all extremities; no focal motor deficits Speech / Cognition: normal speech Motor/Sensory: no tremor negative pronator drift Psychiatric: A+Ox3, euthymic affect Results & Data Vital Signs (Past 12 Hours) Vital Signs Temp Pulse Resp BP BP Pulse Ox 02/27/19 20:39 190/79 H 02/27/19 19:35 36.8 C 70 18 214/73 H 209/73 H 98 02/27/19 18:22 37.4 C 60 18 192/73 H 98 02/27/19 16:33 195/73 H 02/27/19 15:00 37.0 C 84 18 212/77 H 95 02/27/19 10:55 37.1 C 63 18 174/74 H 98 Laboratory Results Laboratory Results - last 24 hr 02/27/19 02/27/19 02/27/19 05:21 05:21 07:25 WBC 6.56 RBC 3.22 L Hgb 11.0 L Hct 31.4 L MCV 97.5 MCH 34.2 H MCHC 35.0 RDW Std Deviation 44.1 RDW Coeff of Yesica 12.3 Plt Count 115 L MPV 9.4 Immature Gran % (Auto) 0.2 Neut % (Auto) 59.0 Lymph % (Auto) 30.5 [place] % (Auto) 7.2 Eos % (Auto) 2.9 Baso % (Auto) 0.2 Immature Gran # (Auto) 0.01 Neut # (Auto) 3.88 Lymph # (Auto) 2.00 [place] # (Auto) 0.47 Eos # (Auto) 0.19 Baso # (Auto) 0.01 Sodium 138 Potassium 4.6 D Chloride 110 H Carbon Dioxide 23 Anion Gap 5.0 BUN 37 H Creatinine 1.99 H D Est Cr Clr Drug Dosing 22.8 Est GFR ( Amer) 27.8 Est GFR (Non-Af Amer) 24.0 BUN/Creatinine Ratio 18.7 Glucose 89 POC Glucose 119 H Calcium 8.2 L 02/27/19 02/27/19 02/27/19 11:15 14:46 16:03 WBC RBC Hgb Hct MCV MCH MCHC RDW Std Deviation RDW Coeff of Yesica Plt Count MPV Immature Gran % (Auto) Neut % (Auto) Lymph % (Auto) [place] % (Auto) Eos % (Auto) Baso % (Auto) Immature Gran # (Auto) Neut # (Auto) Lymph # (Auto) [place] # (Auto) Eos # (Auto) Baso # (Auto) Sodium 136 Potassium 4.4 Chloride 107 Carbon Dioxide 22 Anion Gap 7.0 BUN 38 H Creatinine 1.87 H Est Cr Clr Drug Dosing 24.3 Est GFR ( Amer) 29.9 Est GFR (Non-Af Amer) 25.8 BUN/Creatinine Ratio 20.2 H Glucose 165 H POC Glucose 231 H Calcium 8.8 02/27/19 16:34 WBC RBC Hgb Hct MCV MCH MCHC RDW Std Deviation RDW Coeff of Yesica Plt Count MPV Immature Gran % (Auto) Neut % (Auto) Lymph % (Auto) [place] % (Auto) Eos % (Auto) Baso % (Auto) Immature Gran # (Auto) Neut # (Auto) Lymph # (Auto) [place] # (Auto) Eos # (Auto) Baso # (Auto) Sodium Potassium Chloride Carbon Dioxide Anion Gap BUN Creatinine Est Cr Clr Drug Dosing Est GFR ( Amer) Est GFR (Non-Af Amer) BUN/Creatinine Ratio Glucose POC Glucose 147 H Calcium (1) Carotid artery stenosis Laterality: bilateral Qualified Code(s): I65.23 - Occlusion and stenosis of bilateral carotid arteries (2) Hyperlipidemia Hyperlipidemia type: mixed hyperlipidemia Qualified Code(s): E78.2 - Mixed hyperlipidemia (3) Hypothyroidism Hypothyroidism type: acquired Qualified Code(s): E03.9 - Hypothyroidism, unspecified (4) Diabetes mellitus type 2, uncontrolled Glycemic state: with hyperglycemia Qualified Code(s): E11.65 - Type 2 diabetes mellitus with hyperglycemia
[2019-02-28] MEDS: LEVOTHYROXINE SODIUM 25 MCG TABLET PO SCH (06:09)
[2019-02-28 06:10] LABS: Basophils # (auto) 0.02 K/uL (0-0.2); Basophils % (auto) 0.3 %; Eosinophils # (auto) 0.13 K/uL (0-0.5); Eosinophils % (auto) 2.1 %; Hematocrit (blood only) 30.8 % (37-47); Hemoglobin 10.8 g/dL (12.0-16.0); Immature Granulocytes # (auto) 0.02 K/uL (0.00-0.02); Immature Granulocytes % (auto) 0.3 %; Lymphocytes # (auto) 1.67 K/uL (1.2-3.4); Lymphocytes % (auto) 27.2 %; Mean Corpuscular Hgb Conc 35.1 g/dL (32-36); Mean Corpuscular Volume 96.9 fL (80-100); Mean Platelet Volume 9.2 fL (7.4-10.4); Monocytes # (auto) 0.47 K/uL (0.11-0.59); Monocytes % (auto) 7.7 %; Neutrophils # (auto) 3.82 K/uL (1.4-6.5); Neutrophils % (auto) 62.4 %; Platelet Count 111 K/uL (130-400); RDW Coefficient of Variation 12.3 % (11.5-14.5); RDW Standard Deviation 43.6 fL (36.4-46.3); Red Blood Count 3.18 M/uL (4.2-5.4); White Blood Count 6.13 K/uL (4.8-10.8)
[2019-02-28 06:56] LABS: BUN Creatinine Ratio 20.2 (10-20); Calcium 8.8 mg/dl (8.5-10.1); Creatinine Clr Calc Pharmacy 23.6 ml/min; Est GFR (African American) 28.8; Est GFR (Non-African American) 24.9; Potassium 4.6 mmol/L (3.5-5.1)
[2019-02-28] MEDS: INSULIN ASPART 100 UNITS/ML 3 ML PEN SC SCH ×4 (08:15→20:50)
[2019-02-28] MEDS: CARVEDILOL 25 MG TAB PO SCH ×2 (08:16→20:53)
[2019-02-28] MEDS: HEPARIN SOD 5,000 UNIT/0.5 ML VIAL SQ SCH ×2 (08:17→20:52)
[2019-02-28] MEDS: MAGNESIUM OXIDE 400 MG TAB PO SCH (08:18)
[2019-02-28] MEDS: MULTIVITAMIN TAB PO SCH (08:18)
[2019-02-28] MEDS: OMEGA-3 (PURIFIED FISH OIL) 1 GM CAP PO SCH (08:19)
[2019-02-28] MEDS: CLOPIDOGREL BISULFATE 75 MG TAB PO SCH (08:19)
[2019-02-28] MEDS: ASCORBIC ACID 500 MG TAB PO SCH ×2 (08:19→20:53)
[2019-02-28] MEDS: CHOLECALCIFEROL 1,000 UNITS TAB PO SCH (08:20)
[2019-02-28] MEDS ORDERED: AMLODIPINE BESYLATE 5 MG TAB PO SCH (09:00)
[2019-02-28] MEDS: SODIUM CHLORIDE 0.9% 1000ML 1,000 ML IV SCH (11:09)
[2019-02-28 15:26] LABS: BUN Creatinine Ratio 20.5 (10-20); Calcium 8.5 mg/dl (8.5-10.1); Creatinine Clr Calc Pharmacy 25.8 ml/min; Est GFR (Non-African American) 27.6; Potassium 4.6 mmol/L (3.5-5.1)
[2019-02-28] MEDS ORDERED: AMLODIPINE BESYLATE 5 MG TAB PO ONE (15:41)
[2019-02-28] MEDS: INSULIN GLARGINE SOLOSTAR 100 UNITS/ML 3 ML PEN SQ SCH (20:51)
[2019-02-28] MEDS ORDERED: ATORVASTATIN 40 MG TAB PO SCH (21:00)
--- NOTE | 2019-02-28 21:22 | Hospitalist Progress Note ---
Date of Service February 28, 2019 Assessment & Plan (1) Acute ischemic stroke: Found to have a tiny left periventricular stroke. She has no significant deficits on exam. Neurology saw and thinks this is likely small vessel ischemic stroke. ECHO w/o source of thrombus and no definite intra-atrial shunting seen Bilateral carotids with moderate ICA stenosis but unlikely to have contributed. There is been no atrial fibrillation on telemetry monitoring appreciate neuro consult. changed asa to plavix for secondary stroke prevention. Is only on a moderate intensity statin at home, I initially recommended she go up to atorvastatin 80 mg for high intensity, however neurology recommends keeping her at her same home dose due to slightly increased risk of intracranial hemorrhage with bringing lipids down too low at her age (want to avoid total cholesterol less than 100). Lipid panel here showed total cholesterol only 119, LDL only 23. PT, OT, speech evals appreciated. no services needed. BPs still significantly elevated today to the mid to high 180 systolic. -Improved blood pressure control needed as below (2) Essential (primary) hypertension: SBPs >200 on admission and continue to be high but slightly improved with starting amlodipine yesterday, systolics now in the 180s and 170s -Continue Coreg 25 mill grams p.o. twice daily -Increase amlodipine to 10 mg daily -Holding home losartan due to acute kidney injury but could likely be restarted when creatinine back to baseline would want SBPs at least 150-160 consistently before d/c home. Blood pressure goals from neurology in the setting of recent acute ischemic CVA are as follows: "Blood pressure recommendations while in hospital 175/95-150/80 For the first month after hospital discharge, blood pressure recommendations 150/90-130/80. After the first month, blood pressure recommendations 130/80-110/70" (3) Hypothyroidism: TSH in 03/2018 was normal at 2.97 -Cont synthroid at home dose (4) Diabetes mellitus type 2, uncontrolled: a1c 7.2% which is actually fairly well controlled for her age and comorbidities continue current management with basal and bolus insulin glucose acceptable while here (5) Hyperlipidemia: statin LDL at goal (6) Carotid artery stenosis: Right internal carotid artery with 50% stenosis, left with 40% stenosis -Continue Plavix and statin routine surveillance in 1 year with repeat carotid duplex (7) Chronic kidney disease, stage 3a: very mild acute kidney injury in setting of stroke, elevated BPs and recent CT contrast Creatinine mildly improved on repeat labs this afternoon with IV fluids continuing for hydration Creatinine down now to 1.88 Her baseline creatinine is around 1.5-1.6 -Continue gentle normal saline IV fluids -Follow BMP in the morning -Holding losartan from home (8) DVT prophylaxis: heparin SC Disposition-remain on telemetry overnight due to significantly elevated blood pressures in the setting of recent CVA as well as improving acute kidney injury -Hopeful for discharge to home tomorrow if blood pressures improved Subjective Patient feeling very well today. No further "spacey feeling" in her head, no chest pain or shortness of breath, no lightheadedness. She is tolerating p.o. without nausea or vomiting. She is moving her bowels and making urine. She is ambulating without difficulty. Her blood pressures remain significantly elevated today. She denies any numbness or tingling, no focal weakness. She reports she has not really been following her blood pressures at home, but reports her blood pressure was 120/60 at the dentist office 4 months ago. Telemetry with normal sinus rhythm with rates in the 60s to 70s Review of Systems Review of Systems: All systems reviewed & are unremarkable except as noted in HPI & below Physical Exam Constitutional: WD/WN, vitals as above Eyes: PERRL, conjunctivae normal, anicteric sclerae ENMT: external ear and nose normal, oropharynx normal Neck: trachea midline, no thyromegaly Respiratory: normal respiratory effort, lungs clear to auscultation Cardiovascular: RRR, no murmur, no edema Gastrointestinal (Abdomen): normal bowel sounds, soft, nontender, no hepatosplenomegaly Musculoskeletal: Extremities: extremities normal to inspection; no cyanosis and no clubbing Skin: no rashes, warm and dry Neurologic: moves all extremities and awake; no focal motor deficits Psychiatric: A+Ox3, euthymic affect Results & Data Vital Signs (Past 12 Hours) Vital Signs Temp Pulse Resp BP BP Pulse Ox 02/28/19 19:29 36.8 C 59 L 19 173/72 H 98 02/28/19 18:00 181/69 H 182/76 H 02/28/19 16:05 36.7 C 63 16 189/48 H 98 02/28/19 14:08 179/72 H 182/75 H 02/28/19 10:51 36.9 C 60 19 192/81 H 98 Laboratory Results 02/28/19 02/28/19 02/28/19 Range/Units 20:10 16:02 14:52 WBC (4.8-10.8) K/uL RBC (4.2-5.4) M/uL Hgb (12.0-16.0) g/dL Hct (37-47) % MCV (80-100) fL MCH (25-34) pg MCHC (32-36) g/dL RDW Std Deviation (36.4-46.3) fL RDW Coeff of Yesica (11.5-14.5) % Plt Count (130-400) K/uL MPV (7.4-10.4) fL Immature Gran % (Auto) % Neut % (Auto) % Lymph % (Auto) % Sanborn % (Auto) % Eos % (Auto) % Baso % (Auto) % Immature Gran # (Auto) (0.00-0.02) K/uL Neut # (Auto) (1.4-6.5) K/uL Lymph # (Auto) (1.2-3.4) K/uL Sanborn # (Auto) (0.11-0.59) K/uL Eos # (Auto) (0-0.5) K/uL Baso # (Auto) (0-0.2) K/uL Sodium 140 (136-145) mmol/L Potassium 4.6 (3.5-5.1) mmol/L Chloride 112 H (98-107) mmol/L Carbon Dioxide 24 (21-32) mmol/L Anion Gap 4.0 (3-11) BUN 36 H (7-18) mg/dl Creatinine 1.77 H (0.6-1.2) mg/dl Est Cr Clr Drug Dosing 25.8 ml/min Est GFR ( Amer) 32.0 Est GFR (Non-Af Amer) 27.6 BUN/Creatinine Ratio 20.5 H (10-20) Glucose 167 H (70-99) mg/dl POC Glucose 163 H 156 H (70-99) Calcium 8.5 (8.5-10.1) mg/dl Specimen Hemolysis 02/28/19 02/28/19 02/28/19 Range/Units 11:28 07:23 05:58 WBC (4.8-10.8) K/uL RBC (4.2-5.4) M/uL Hgb (12.0-16.0) g/dL Hct (37-47) % MCV (80-100) fL MCH (25-34) pg MCHC (32-36) g/dL RDW Std Deviation (36.4-46.3) fL RDW Coeff of Yesica (11.5-14.5) % Plt Count (130-400) K/uL MPV (7.4-10.4) fL Immature Gran % (Auto) % Neut % (Auto) % Lymph % (Auto) % Sanborn % (Auto) % Eos % (Auto) % Baso % (Auto) % Immature Gran # (Auto) (0.00-0.02) K/uL Neut # (Auto) (1.4-6.5) K/uL Lymph # (Auto) (1.2-3.4) K/uL Sanborn # (Auto) (0.11-0.59) K/uL Eos # (Auto) (0-0.5) K/uL Baso # (Auto) (0-0.2) K/uL Sodium 142 (136-145) mmol/L Potassium 4.6 (3.5-5.1) mmol/L Chloride 112 H (98-107) mmol/L Carbon Dioxide 23 (21-32) mmol/L Anion Gap 6.0 (3-11) BUN 39 H (7-18) mg/dl Creatinine 1.93 H (0.6-1.2) mg/dl Est Cr Clr Drug Dosing 23.6 ml/min Est GFR ( Amer) 28.8 Est GFR (Non-Af Amer) 24.9 BUN/Creatinine Ratio 20.2 H (10-20) Glucose 162 H (70-99) mg/dl POC Glucose 216 H 177 H (70-99) Calcium 8.8 (8.5-10.1) mg/dl Specimen Hemolysis 02/28/19 02/28/19 02/27/19 Range/Units 05:58 03:23 20:42 WBC 6.13 (4.8-10.8) K/uL RBC 3.18 L (4.2-5.4) M/uL Hgb 10.8 L (12.0-16.0) g/dL Hct 30.8 L (37-47) % MCV 96.9 (80-100) fL MCH 34.0 (25-34) pg MCHC 35.1 (32-36) g/dL RDW Std Deviation 43.6 (36.4-46.3) fL RDW Coeff of Yesica 12.3 (11.5-14.5) % Plt Count 111 L (130-400) K/uL MPV 9.2 (7.4-10.4) fL Immature Gran % (Auto) 0.3 % Neut % (Auto) 62.4 % Lymph % (Auto) 27.2 % Sanborn % (Auto) 7.7 % Eos % (Auto) 2.1 % Baso % (Auto) 0.3 % Immature Gran # (Auto) 0.02 (0.00-0.02) K/uL Neut # (Auto) 3.82 (1.4-6.5) K/uL Lymph # (Auto) 1.67 (1.2-3.4) K/uL Sanborn # (Auto) 0.47 (0.11-0.59) K/uL Eos # (Auto) 0.13 (0-0.5) K/uL Baso # (Auto) 0.02 (0-0.2) K/uL Sodium (136-145) mmol/L Potassium (3.5-5.1) mmol/L Chloride (98-107) mmol/L Carbon Dioxide (21-32) mmol/L Anion Gap (3-11) BUN (7-18) mg/dl Creatinine (0.6-1.2) mg/dl Est Cr Clr Drug Dosing ml/min Est GFR ( Amer) Est GFR (Non-Af Amer) BUN/Creatinine Ratio (10-20) Glucose (70-99) mg/dl POC Glucose 94 137 H (70-99) Calcium (8.5-10.1) mg/dl Specimen Hemolysis (1) Hypothyroidism Hypothyroidism type: acquired Qualified Code(s): E03.9 - Hypothyroidism, unspecified (2) Diabetes mellitus type 2, uncontrolled Glycemic state: with hyperglycemia Qualified Code(s): E11.65 - Type 2 diabetes mellitus with hyperglycemia (3) Hyperlipidemia Hyperlipidemia type: mixed hyperlipidemia Qualified Code(s): E78.2 - Mixed hyperlipidemia (4) Carotid artery stenosis Laterality: bilateral Qualified Code(s): I65.23 - Occlusion and stenosis of bilateral carotid arteries
[2019-03-01] MEDS: SODIUM CHLORIDE 0.9% 1000ML 1,000 ML IV SCH (00:27)
[2019-03-01] MEDS: LEVOTHYROXINE SODIUM 25 MCG TABLET PO SCH (06:00)
[2019-03-01] MEDS: INSULIN ASPART 100 UNITS/ML 3 ML PEN SC SCH ×2 (08:48→12:22)
[2019-03-01] MEDS: CARVEDILOL 25 MG TAB PO SCH (08:49)
[2019-03-01] MEDS: HEPARIN SOD 5,000 UNIT/0.5 ML VIAL SQ SCH (08:49)
[2019-03-01] MEDS: MAGNESIUM OXIDE 400 MG TAB PO SCH (08:50)
[2019-03-01] MEDS: MULTIVITAMIN TAB PO SCH (08:50)
[2019-03-01] MEDS: OMEGA-3 (PURIFIED FISH OIL) 1 GM CAP PO SCH (08:51)
[2019-03-01] MEDS: ASCORBIC ACID 500 MG TAB PO SCH (08:52)
[2019-03-01] MEDS: CLOPIDOGREL BISULFATE 75 MG TAB PO SCH (08:52)
[2019-03-01] MEDS: CHOLECALCIFEROL 1,000 UNITS TAB PO SCH (08:52)
[2019-03-01] MEDS ORDERED: AMLODIPINE BESYLATE 5 MG TAB PO SCH (09:00)
[2019-03-01 09:05] LABS: BUN Creatinine Ratio 20.9 (10-20); Calcium 8.9 mg/dl (8.5-10.1); Creatinine Clr Calc Pharmacy 28.9 ml/min; Est GFR (African American) 36.4; Est GFR (Non-African American) 31.4; Potassium 4.7 mmol/L (3.5-5.1)
--- NOTE | 2019-03-01 11:29 | Discharge Summary ---
Date of Service March 01, 2019 Admission HPI Per Admitting Provider Patient presents after 2 days of having some pasty type of unsteadiness feeling in her head. She says that she went to a chiropractor had a 3 cervical spine adjustment and at which time she did check her blood pressure and she found to be markedly elevated. Weight at the chiropractor's office for recheck and once again was markedly elevated. In the emergency department she was evaluated and there were no acute changes on CT scan she is out of the time window for thrombolytic therapy. The CT scan showed multiple patchy hypodensities about the go radiata suggesting encephalomalacia related to remote lacunar infarctions as well as changes of chronic microvascular ischemic disease. In the emergency room she had no facial asymmetry she no palmar drift she did have a minor reproduction with modified Hallpike maneuver to perhaps have some vertiginous component of this. But her systolic blood pressures were routinely near 200. She said no chest pain shortness of breath associate with this patient. She denies any medical indiscretion. The only new medication regimen is been loratadine and is not been any decongestant associated with Principal Diagnosis Acute ischemic CVA, Hypertensive urgency, DHRUV Discharge Exam Constitutional WD/WN, vitals as above Eyes PERRL, conjunctivae normal, anicteric sclerae ENMT external ear and nose normal, oropharynx normal Neck trachea midline, no thyromegaly Respiratory normal respiratory effort, lungs clear to auscultation Cardiovascular RRR, no murmur, no edema Gastrointestinal (Abdomen) normal bowel sounds, soft, nontender, no hepatosplenomegaly Musculoskeletal Extremities: extremities normal to inspection; no cyanosis and no clubbing Skin no rashes, warm and dry Neurologic moves all extremities and awake; no focal motor deficits Psychiatric A+Ox3, euthymic affect Discharge Data Allergies Allergy/AdvReac Type Severity Reaction Status Date / Time cortisone Allergy Mild "muscle Verified 02/25/19 17:08 weakness, makes me feel weird" clams Allergy Unknown VOMITING Verified 02/25/19 17:08 prednisone Allergy Unknown "MAKES ME Verified 02/25/19 17:08 FEEL WEIRD AND SPACEY" Consultations Neurology Ordered Studies 02/25/19 16:30 CT head/brain wo con Stat 02/26/19 00:06 MR brain wo/w con Routine 02/26/19 02:33 CT angio head w con Urgent CT angio neck with con Urgent CXR Hospital Course (1) Acute ischemic stroke: Found to have a tiny left periventricular stroke. She has no significant deficits on exam. Neurology saw and thinks this is likely small vessel ischemic stroke. ECHO w/o source of thrombus and no definite intra-atrial shunting seen Bilateral carotids with moderate ICA stenosis but unlikely to have contributed. There has been no atrial fibrillation on telemetry monitoring Appreciate neuro consult. Changed ASA to Plavix for secondary stroke prevention. Is only on a moderate intensity statin at home, I initially recommended she go up to atorvastatin 80 mg for high intensity, however neurology recommends keeping her at her same home dose due to slightly increased risk of intracranial hemorrhage with bringing lipids down too low at her age (want to avoid total cholesterol less than 100). Lipid panel here showed total cholesterol only 119, LDL only 23. PT, OT, speech evals appreciated. No services needed. BPs remained significantly elevated and she was kept another night to improve control (2) Essential (primary) hypertension: SBPs >200 on admission and continued to be high but then improved with starting amlodipine which was then titrated up to 10mg, systolics now in the 150s-170s on discharge -Continue Coreg 25 mill grams p.o. twice daily -continue amlodipine but decrease back to 5 mg daily as will also be restarting home losartan -ok to restart home losartan upon discharge which was held initially due to acute kidney injury Blood pressure goals from neurology in the setting of recent acute ischemic CVA are as follows: "Blood pressure recommendations while in hospital 175/95-150/80 For the first month after hospital discharge, blood pressure recommendations 150/90-130/80. After the first month, blood pressure recommendations 130/80-110/70" (3) Hypothyroidism: TSH in 03/2018 was normal at 2.97 -Cont synthroid at home dose (4) Diabetes mellitus type 2, uncontrolled: a1c 7.2% which is actually fairly well controlled for her age and comorbidities continue current management with basal and bolus insulin glucose acceptable while here (5) Hyperlipidemia: statin LDL at goal (6) Carotid artery stenosis: Right internal carotid artery with 50% stenosis, left with 40% stenosis -Continue Plavix and statin routine surveillance in 1 year with repeat carotid duplex (7) Chronic kidney disease, stage 3a: very mild acute kidney injury in setting of stroke, elevated BPs and recent CT contrast Creatinine improved on repeat labs with IV fluids for hydration Creatinine down now to 1.59 Her baseline creatinine is around 1.5-1.6 -ok to restart losartan as above -check BMP as outpt within 1 week (8) DVT prophylaxis: heparin SC was provided Disposition-discharge to home Total Time Total Time Spent Total Time Spent (In Minutes): >30 min Total Time Includes: Examination of the Patient, Discharge Planning and Medication Reconciliation Discharge Plan Discharge Items Patient Disposition: Home - Self-Care Reason For Visit: HYPERTENSIVE URGENCY Discharge Diagnosis: Stroke, hypertensive emergency Condition: Good Discharge Goals: Diagnostic testing, Improve disease control, Learn about illness and Therapeutic intervention Activity: As commented below Activity Comment: refrain from exercise until seen by your PCP Lifting: Gradually increase as tolerated Bathing: No limitations Exercise/Sports: Gradually increase as tolerated Driving/Machine Use: No limitations Non-emergency contact: Primary Care Provider Call non-emergency contact if: you have any medication questions and your symptoms worsen Follow-up/Referrals: Thi Cherry CRNP [Primary Care Provider] - 03/09/19 2:00 pm (follow up appointment with your primary care provider) Cherelle Alexis DO [Physician] - (Follow up with Dr. Alexis or one of her partners at the Neurology office within 1 month ) Diet: Carb Consistent or DM2, Heart Healthy and Low Sodium (2gm) Addtl Provider Instructions: You were admitted with severely elevated blood pressures and were found to have a small stroke. Your aspirin was stopped and you will be switched to Plavix instead to prevent future strokes. Your blood pressure was severely elevated and you were started on a new blood pressure medicine called amlodipine. Please check your blood pressure every day at home and follow up with your PCP within 1 week. Please call your doctor if your blood pressure is higher than 170 for the "top" number. You should also follow up with the Neurologist within 1 month. Risk Factors for Stroke: You can reduce your chances of stroke by working with your medical provider to adopt a healthy lifestyle. Some specific ways to lower your chance of stroke are: * If you are a smoker, now is the time to stop smoking cigarettes * If you are diabetic, improve the control of your blood sugars * Avoid excessive amounts of alcohol * Control high blood pressure * Lose weight if you are overweight * Be sure to lead an active lifestyle * Eat a healthy diet low in salt, cholesterol and fat You should know about other risk factors for stroke that you are unable to control. These include: * Age 55 years or older * Male gender * Certain racial groups: , or / * Family History of Stroke, Mini stroke or Heart Attack * Sickle Cell Disease Follow Up: It is important for you to keep your follow up appointments with your medical provider. Who to Call and When: Medical Emergencies: Call 911 immediately if you experience any of the following warning signs and symptoms of Stroke: * Sudden numbness or weakness of the face, arm or leg, especially on one side of the body * Sudden confusion, trouble speaking or understanding * Sudden trouble seeing in one or both eyes * Sudden trouble walking, dizziness, loss of balance or coordination * Sudden severe headache with no cause Do not delay calling 911 if you experience any warning signs or symptoms of a stroke. Delay in seeking medical attention may affect what treatments can be given to you. . Prescriptions: New clopidogrel 75 mg Tablet 75 mg PO QAM Qty: 30 RF: 0 amlodipine [Norvasc] 5 mg Tablet 5 mg PO QAM Qty: 30 RF: 0 Continued multivitamin Tablet 1 tab PO QAM RF: 0 losartan 50 mg Tablet 50 mg PO QAM RF: 0 carvedilol 25 mg Tablet 25 mg PO BID RF: 0 atorvastatin 20 mg Tablet 20 mg PO HS RF: 0 coenzyme Q10 [Co Q-10] 100 mg Capsule 100 mg PO QPM RF: 0 Novolog Flexpen U-100 Insulin 100 unit/mL Insulin Pen 1 dose SUBCUT AC RF: 0 Basaglar KwikPen U-100 Insulin 100 unit/mL (3 mL) Insulin Pen 34 unit SUBCUT HS RF: 0 cholecalciferol (vitamin D3) [Vitamin D3] 2,000 unit Tablet 4,000 unit PO QAM RF: 0 omega 1-pkt-ixb-fish oil [Fish Oil] 1,000 mg (120 mg-180 mg) Capsule 1 cap PO QAM RF: 0 levothyroxine 25 mcg Capsule 25 mcg PO QAM RF: 0 magnesium oxide 400 mg Capsule 400 mg PO QAM RF: 0 ascorbic acid (vitamin C) 500 mg Capsule 1 cap PO BID RF: 0 loratadine 10 mg Tablet 10 mg PO DAILY RF: 0 Discontinued aspirin 81 mg Tablet,Delayed Release (Dr/Ec) 81 mg PO QAM RF: 0 Stand-Alone Forms: Medications to Prevent Stroke, [facility] Discharge Orders: Discharge Order (Routine); Ordered 03/01/19 Ordered By: Idalia Mayfield Admission Data Admit Date/Time: 02/25/19 20:28 Attending Provider: Idalia Mayfield Admit Provider: Vazquez Chatman Primary Care Provider: Thi Cherry Other Providers: Chau Ortiz III Service: Telemetry Other Interventions: Discharge Summary Assessment (RN) Last Done: 03/01/19 11:49 Pending Studies at Discharge: No DC Date/Time DO NOT enter until pt leaves facility: 03/01/19 13:17
--- NOTE | 2019-03-01 12:02 | Pharmacy Report ---
Pharmacist Stroke Counseling - Date of Service March 01, 2019 - Scope: Pharmacy has been consulted to provide medication discharge counseling for this patient admitted with ischemic stroke as per the Pharmacist Discharge Counseling for Stroke Patients Protocol. - Medications on Discharge: Home Medications Medication Instructions Recorded Confirmed Basaglar KwikPen U-100 Insulin 34 unit SUBCUT HS 08/08/18 02/25/19 Novolog Flexpen U-100 Insulin 1 dose SUBCUT AC 08/08/18 02/25/19 ascorbic acid (vitamin C) 1 cap PO BID 08/08/18 02/25/19 atorvastatin 20 mg PO HS 08/08/18 02/25/19 carvedilol 25 mg PO BID 08/08/18 02/25/19 cholecalciferol (vitamin D3) 4,000 unit PO QAM 08/08/18 02/25/19 [Vitamin D3] coenzyme Q10 [Co Q-10] 100 mg PO QPM 08/08/18 02/25/19 levothyroxine 25 mcg PO QAM 08/08/18 02/25/19 losartan 50 mg PO QAM 08/08/18 02/25/19 magnesium oxide 400 mg PO QAM 08/08/18 02/25/19 multivitamin 1 tab PO QAM 08/08/18 02/25/19 omega 0-xmu-qlj-fish oil [Fish Oil] 1 cap PO QAM 08/08/18 02/25/19 loratadine 10 mg PO DAILY 02/25/19 02/25/19 New Rx's Medication Instructions Recorded amlodipine [Norvasc] 5 mg PO QAM #30 tab 03/01/19 clopidogrel 75 mg PO QAM #30 tab 03/01/19 - Action: The above medications, specifically ones for stroke treatment/prophylaxis, have been reviewed in detail with the patient and/or patient sales representative health insurance(s) prior to discharge. This includes indication, common adverse reactions, drug interactions, and medication administration. Medication counseling has been employed using the teach-back method to ensure understanding. - Outcome: The patient and/or patient sales representative health insurance(s) have demonstrated understanding of the medications. Please note, they are aware that the pharmacist will call them within 72 hours post-discharge to confirm that the appropriate medications are being taken and answer any further medication related questions the patient might have at that time. Contact information Individual to be contacted: Patient Relationship to patient (if applicable): Self Phone number: [phone] or [phone] Best time to call: Anytime on Saturday Additional comments: Discussed medication changes/additions of Plavix & Amlodipine. Discussed signs/symptoms of bleeding/bruising with Plavix and drug interactions with omeprazole. Pt does not take PPIs, if she has acid reflux she uses tums. Reviewed "no changes" to aspirin and atorvastatin Rx. Discussed side effects with amlodipine. Pt has a PCP appt scheduled for SatMarch 09 at 1400 where she will discuss re-initiating exercise back into her routine. Thank you for allowing pharmacy to be involved in the care of this patient. Please call [phone] or [phone] with any additional questions
[2019-03-01] MEDS ORDERED: ATORVASTATIN 20 MG TAB PO SCH (21:00)
--- NOTE | 2019-03-03 13:13 | Pharmacy Report ---
Pharmacist Post D/C Phone Note - Phone Note: Date of phone call: March 03, 2019. Individual with whom pharmacist spoke to: SERGIO RUSH The following questions were reviewed during the phone call with responses listed below each: Can you tell me the medications that you are currently taking as well as when and how you take each medication? -See Table Below When have you missed any doses of your medications? - No missed doses What side effects are you having from your medications, specifically, the new medications you were started on? - Was a little fluid overloaded but swelling already improving since discharge. BSGs running a little low (82,109, 92 yesterday; 79 this AM). She did not take anything other than her Basaglar. She is trying to watch what she eats so BSGs may continue to fall. [facility] follows with her as an outpatient and she won't be following up with them until this summer. She asked that I try to reach them instead of her doing this. I left a message on their peer educator line to notify them and to provide f/u if necessary. - She had some bruising at the heparin SQ injection sites and IV sites but no other issues What questions do you have about your medications? - She has started her new meds: amlodipine and Plavix. She removed her ASA from her pillbox as this was stopped. She had some congestion but this has improved since starting back on her Claritin. What problems are you having obtaining your medications? - None When is your next appointment with your primary care doctor? - Saturday at 2 pm with Loida at PCP office Additional comments: - Her BPs since discharge have been ~149/76 As per the Pharmacist Discharge Counseling for Stroke Patients Protocol, this phone call has been completed within 72 hours of discharge. Thank you for allowing us to be involved in the care of this patient. - Home Medications: Home Medications Medication Instructions Recorded Confirmed Basaglar KwikPen U-100 Insulin 34 unit SUBCUT HS 08/08/18 02/25/19 Novolog Flexpen U-100 Insulin 1 dose SUBCUT AC 08/08/18 02/25/19 ascorbic acid (vitamin C) 1 cap PO BID 08/08/18 02/25/19 atorvastatin 20 mg PO HS 08/08/18 02/25/19 carvedilol 25 mg PO BID 08/08/18 02/25/19 cholecalciferol (vitamin D3) 4,000 unit PO QAM 08/08/18 02/25/19 [Vitamin D3] coenzyme Q10 [Co Q-10] 100 mg PO QPM 08/08/18 02/25/19 levothyroxine 25 mcg PO QAM 08/08/18 02/25/19 losartan 50 mg PO QAM 08/08/18 02/25/19 magnesium oxide 400 mg PO QAM 08/08/18 02/25/19 multivitamin 1 tab PO QAM 08/08/18 02/25/19 omega 0-itv-chb-fish oil [Fish Oil] 1 cap PO QAM 08/08/18 02/25/19 loratadine 10 mg PO DAILY 02/25/19 02/25/19 New Rx's Medication Instructions Recorded amlodipine [Norvasc] 5 mg PO QAM #30 tab 03/01/19 clopidogrel 75 mg PO QAM #30 tab 03/01/19
== END 2019-03-01 13:17 | disposition home or self-care (01) | DRG 66 ==
LOC: ED 15:46 → SUATTDRO 20:28 → 2S 20:28

== ENCOUNTER 2019-11-05 15:30 | Inpatient (IN) ==
[2019-11-05] MEDS ORDERED: SODIUM CHLORIDE 0.9% 500 ML IV ONE ×2 (15:50→18:36)
[2019-11-05] MEDS ORDERED: PROCHLORPERAZINE 1 ML IV ONE (16:29)
[2019-11-05] MEDS ORDERED: FAMOTIDINE 20MG IV PUSH 20 MG/5 ML SYR IV STA (16:29)
[2019-11-05] MEDS ORDERED: ACETAMINOPHEN 1,000 MG/100 ML VIAL IV STA (16:29)
[2019-11-05 16:34] LABS: Basophils # (auto) 0.02 K/uL (0-0.2); Basophils % (auto) 0.3 %; Eosinophils # (auto) 0.09 K/uL (0-0.5); Eosinophils % (auto) 1.1 %; Hematocrit (blood only) 31.6 % (37-47); Hemoglobin 10.9 g/dL (12.0-16.0); Immature Granulocytes # (auto) 0.01 K/uL (0.00-0.02); Immature Granulocytes % (auto) 0.1 %; Lymphocytes # (auto) 1.24 K/uL (1.2-3.4); Lymphocytes % (auto) 15.7 %; Mean Corpuscular Hemoglobin 34.4 pg (25-34); Mean Corpuscular Hgb Conc 34.5 g/dL (32-36); Mean Corpuscular Volume 99.7 fL (80-100); Mean Platelet Volume 9.5 fL (7.4-10.4); Monocytes # (auto) 0.72 K/uL (0.11-0.59); Monocytes % (auto) 9.1 %; Neutrophils # (auto) 5.82 K/uL (1.4-6.5); Neutrophils % (auto) 73.7 %; Platelet Count 152 K/uL (130-400); RDW Coefficient of Variation 12.3 % (11.5-14.5); Red Blood Count 3.17 M/uL (4.2-5.4)
[2019-11-05 17:08] LABS: Alanine Aminotransferase 22 U/L (12-78); Albumin Level 3.6 gm/dl (3.4-5.0); Alkaline Phosphatase 56 U/L (45-117); Aspartate Aminotransferase 23 U/L (15-37); BUN Creatinine Ratio 17.5 (10-20); Bilirubin,Total 0.7 mg/dl (0.2-1); Blood Urea Nitrogen 58 mg/dl (7-18); Calcium 9.5 mg/dl (8.5-10.1); Carbon Dioxide 24 mmol/L (21-32); Chloride 102 mmol/L (98-107); Creatinine Clr Calc Pharmacy 13.6 ml/min; Est GFR (African American) 14.9; Est GFR (Non-African American) 12.9; Globulin 3.7 gm/dl (2.5-4.0); Glucose 115 mg/dl (70-99); Lipase 168 U/L (73-393); Magnesium 2.2 mg/dl (1.8-2.4); Phosphorus 4.5 mg/dl (2.5-4.9); Potassium 4.9 mmol/L (3.5-5.1); Sodium 134 mmol/L (136-145); Total Protein 7.3 gm/dl (6.4-8.2); Troponin I < 0.015 ng/ml (0-0.045)
--- NOTE | 2019-11-05 17:48 | CT Scan Report ---
ABDOMEN AND PELVIS CT WITHOUT CONTRAST CT DOSE: 923.31 mGycm HISTORY: Left lower quadrant pain. Nausea. TECHNIQUE: Multiaxial CT images of the abdomen and pelvis were performed without contrast. A dose lo wering technique was utilized adhering to the principles of ALARA. COMPARISON STUDY: Abdomen and pelvis CT 04/26/2007. FINDINGS: The lung bases are clear. No pneumoperitoneum. No pneumatosis. No suspicious lytic are hayes tic osseous lesions. Cholecystectomy. No hepatic lesions. The adrenal glands are unremarkable. Residu al contrast within the kidneys from the prior CT examination. Bilateral nephrolithiasis. No hydroneph rosis. Evaluation for a ureteral stone is suboptimal due to the contrast within the urinary system. H owever, no definite ureteral calculi identified. There is contrast within the bladder. The uterus and right ovary are unremarkable. There is a 9 mm hypodense lesion within the left ovary. Moderate perin ephric edema. No bowel wall thickening or obstruction. Normal appendix. Stable 7 cm calcified splenic cyst. Possible 1.4 cm mass within the pancreatic tail with distal atrophy of the pancreatic tail. No retroperitoneal lymphadenopathy. IMPRESSION: 1. No bowel wall thickening or obstruction. 2. Bilateral nephrolithiasis. No hydronephrosis. 3. Stable 7 cm calcified splenic cyst. 4. Possible 1.4 cm pancreatic tail lesion. Nonemergent dedicated pancreatic MRI with contrast is nikita mmended for further evaluation. 5. Moderate bilateral perinephric edema. This is likely chronic. Recommend correlation with urinalysi s to exclude the less likely possibility of a pyelonephritis. 6. Cholecystectomy. ACT 112: Negative or not required by law. Electronically signed by: Tyree Ruano M.D. 11/05/2019 5:46 PM
[2019-11-05 19:24] LABS: Appearance Urine Cloudy (Clear); Bacteria Urine Automated Negative (Negative); Bilirubin Urine Negative (Negative); Blood Urine Negative (Negative); Color Urine Dark Yellow; Epithelial Cell Urine Auto >30 /lpf (0-5); Glucose Urine UA Negative (Negative); Ketones Urine Negative (Negative); Leukocyte Esterase Urine Negative (Negative); Nitrite Urine Negative (Negative); Protein Urine 1+ (Negative); RBC Urine Automated 0-4 /hpf (0-4); Urobilinogen Urine Negative (Negative)
--- NOTE | 2019-11-05 21:58 | History & Physical Report ---
Date of Service November 05, 2019 Assessment & Plan (1) Acute kidney injury superimposed on chronic kidney disease: DHRUV on CKD/dehydration/moderate bilateral perinephric edema that may be chronic- May be an element of ATN associated with having received IV dye [address] on NSS 100 mils per hour. Hold losartan. Follow serial BMP and magnesium levels. Consult her yacht rigger Dr. Jameson. Present on Admission?: Yes (2) Dehydration: See above Present on Admission?: Yes (3) Carotid artery disease: CTA performed 2 days ago shows right ICA stenosis 75% left ICA stenosis 30% Present on Admission?: Yes (4) Cerebrovascular disease: Cerebrovascular disease/possible element of uremic encephalopathy- Patient reports that she felt spacey this morning, which appears to be improving somewhat at this time. Follow her symptoms as she gets rehydrated. Present on Admission?: Yes (5) Hyperlipidemia: Continue atorvastatin 20 mg daily Present on Admission?: Yes (6) Hypothyroidism: Continue levothyroxine 25 mcg daily Present on Admission?: Yes (7) Essential (primary) hypertension: Blood pressure is elevated at this time, however, patient is not received her evening medications yet. Continue carvedilol 25 mg p.o. twice daily and hydralazine 100 mg p.o. twice daily. Hold losartan in the setting of acute kidney injury Present on Admission?: Yes (8) Pancreatic lesion: 1.4 cm pancreatic tail lesion noted on CT. Normal pancreatic enzymes. Patient will need further investigation, such as MRCP. Not likely contributing to current symptomatology. Present on Admission?: Yes History of Present Illness Chief Complaint: The patient presents to the emergency department with complaints of nausea, lower abdominal pain and elevated blood pressure. Primary Care Provider: KIMMIE Jensen The patient is a 74-year-old female with a past medical history including hypertension, carotid artery disease, chronic kidney disease, hypertension, cerebrovascular disease, hyperlipidemia, diabetes mellitus, proliferative diabetic retinopathy, gastroparesis, hypothyroidism and essential hypertension. She presents to the emergency department with complaints of nausea accompanying abdominal discomfort that began 2 days prior to arrival. She was seen in the emergency department 2 days previously, due to elevated blood pressure. She reports no change in usual dietary pattern or exercise pattern, and she continues to avoid sodium. Allergies Allergy/AdvReac Type Severity Reaction Status Date / Time cortisone Allergy Mild "muscle Verified 11/05/19 17:08 weakness, makes me feel weird" clams Allergy Unknown VOMITING Verified 11/05/19 17:08 prednisone Allergy Unknown "MAKES ME Verified 11/05/19 17:08 FEEL WEIRD AND SPACEY" Home Medications Home Medications Medication Instructions Recorded Confirmed Type ascorbic acid (vitamin C) 1 cap PO BID 08/08/18 11/05/19 History cholecalciferol (vitamin D3) 4,000 unit PO QAM 08/08/18 11/05/19 History [Vitamin D3] coenzyme Q10 [Co Q-10] 0 mg PO QDD 08/08/18 11/05/19 History magnesium oxide 400 mg PO QDD 08/08/18 11/05/19 History multivitamin 1 tab PO QAM 08/08/18 11/05/19 History omega 6-dqv-dck-fish oil [Fish Oil] 1 cap PO QAM 08/08/18 11/05/19 History loratadine 10 mg PO QAM 02/25/19 11/05/19 History clopidogrel 75 mg PO QAM #30 tab 03/01/19 11/05/19 Rx insulin aspart U-100 100 unit/mL See Rx Instructions SUBCUT AC 05/04/19 11/05/19 History (3 mL) subcutaneous pen blood-glucose meter #1 ea 06/02/19 11/02/19 History clotrimazole-betamethasone 1 1 appln TOPICAL BID PRN #1 gm 06/02/19 11/05/19 History %-0.05 % topical cream pen needle, diabetic 32 gauge x #10 ea 06/02/19 11/02/19 History 5/32" carvedilol 25 mg tablet 25 mg PO BID #180 tab 09/17/19 11/05/19 Rx losartan 100 mg tablet 100 mg PO QAM #90 tab 09/17/19 11/05/19 Rx atorvastatin 20 mg tablet 20 mg PO HS #30 tab 11/02/19 11/05/19 Rx blood sugar diagnostic #100 ea 11/02/19 11/02/19 Rx hydralazine 100 mg tablet 100 mg PO BID #60 tab 11/02/19 11/05/19 Rx insulin glargine [Basaglar KwikPen 30 units SUBCUT HS 11/03/19 11/05/19 History U-100 Insulin] meclizine 25 mg PO TID PRN #20 tab 11/03/19 11/05/19 Rx levothyroxine 25 mcg PO QAM 11/05/19 11/05/19 History Past Med/Surg History Social History Preferred Language: Kyrgyz Communication Ability: Effective 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: No Beliefs That Will Affect Care: None Current Living Situation: Significant Other Feels Safe at Home: Yes Smoking Status: Former smoker Tobacco Type: cigarettes ; Second Hand Exposure: Yes ( smoked) ; Hx Alcohol Use: Yes Alcohol type: beer, wine and hard liquor Hx Substance Use: No Review of Systems Review of Systems: The patient denies chest pain, palpitations, shortness of breath, dyspnea on exertion, cough, lower extremity swelling, sore throat, fevers, chills, sweats, weight change, fatigue, vomiting, diarrhea , constipation, blood in urine or stool, dysuria, urinary frequency or urgency, lightheadedness, dizziness, headache, memory loss, loss of consciousness, rash, abnormal bruising or bleeding, imbalance, focal or generalized weakness, numbness or tingling in arms or legs, generalized arthralgias or myalgias, back or neck pain, or night sweats. The review of systems is otherwise negative other than for that already noted above, and at least 10 systems have been reviewed. Physical Exam Physical Exam: The patient is awake, alert and oriented 3, well developed and well nourished, normocephalic and atraumatic, lying in bed and in no acute distress. HEENT--PERRL, EOMI, mucous membranes and oropharynx dry. Neck--supple. No JVD. No bruits. Thyroid normal, trachea midline, no adenopathy. Heart--normal S1 and S2. No murmurs, rubs or gallops. Lungs--clear bilaterally, no respiratory distress, no accessory muscle use. Abdomen--normal bowel sounds and soft. Nontender. Nondistended. Mild left lower quadrant discomfort. Extremities--no cyanosis or clubbing. No edema. There are good distal pulses b/l. Dermatologic--normal skin turgor, normal color, no abnormal lymph nodes, no rash. Neurologic--cranial nerves II through XII grossly intact. Rheumatologic--normal range of motion. Psychiatric--normal affect. Results & Data Vital Signs (Past 12 Hours) Vital Signs Temp Pulse Resp BP Pulse Ox 11/05/19 21:46 90 19 189/95 H 98 11/05/19 21:45 90 14 98 11/05/19 21:44 90 16 97 11/05/19 21:43 90 16 11/05/19 21:42 91 H 17 98 11/05/19 21:41 89 20 97 11/05/19 21:40 88 13 98 11/05/19 21:30 87 17 98 11/05/19 21:20 89 20 11/05/19 21:15 88 16 11/05/19 21:01 88 17 11/05/19 21:00 87 19 11/05/19 20:50 88 14 97 11/05/19 20:40 84 12 97 11/05/19 20:30 82 16 97 11/05/19 20:20 88 15 96 11/05/19 20:10 87 18 97 11/05/19 20:01 88 20 97 11/05/19 20:00 87 20 190/84 H 97 11/05/19 19:50 89 19 97 11/05/19 19:40 85 15 96 11/05/19 19:30 84 14 97 11/05/19 19:20 89 15 97 11/05/19 19:10 85 16 96 11/05/19 19:01 85 21 97 11/05/19 19:00 85 22 182/102 H 97 11/05/19 18:50 79 14 97 11/05/19 18:40 81 15 97 11/05/19 18:30 80 16 97 11/05/19 18:20 82 16 97 11/05/19 18:10 84 23 97 11/05/19 18:01 80 14 96 11/05/19 18:00 82 19 177/81 H 97 11/05/19 17:50 80 14 95 11/05/19 17:40 82 16 96 11/05/19 17:30 83 15 96 11/05/19 17:27 83 18 97 11/05/19 17:10 82 12 96 11/05/19 17:01 83 14 98 11/05/19 17:00 84 20 188/107 H 96 11/05/19 16:50 82 17 97 11/05/19 16:46 81 19 217/93 H 95 11/05/19 16:40 77 17 11/05/19 16:30 83 19 11/05/19 16:29 93 11/05/19 16:20 79 15 11/05/19 16:14 81 19 11/05/19 15:32 98.6 F 81 20 216/73 H 99 Laboratory Results Laboratory Results WBC 7.90 K/uL (4.8-10.8) 11/05/19 16:16 RBC 3.17 M/uL (4.2-5.4) L 11/05/19 16:16 Hgb 10.9 g/dL (12.0-16.0) L 11/05/19 16:16 Hct 31.6 % (37-47) L 11/05/19 16:16 MCV 99.7 fL (80-100) 11/05/19 16:16 MCH 34.4 pg (25-34) H 11/05/19 16:16 MCHC 34.5 g/dL (32-36) 11/05/19 16:16 RDW Std Deviation 45.0 fL (36.4-46.3) 11/05/19 16:16 RDW Coeff of Yesica 12.3 % (11.5-14.5) 11/05/19 16:16 Plt Count 152 K/uL (130-400) 11/05/19 16:16 MPV 9.5 fL (7.4-10.4) 11/05/19 16:16 Immature Gran % (Auto) 0.1 % 11/05/19 16:16 Neut % (Auto) 73.7 % 11/05/19 16:16 Lymph % (Auto) 15.7 % 11/05/19 16:16 Bandera % (Auto) 9.1 % 11/05/19 16:16 Eos % (Auto) 1.1 % 11/05/19 16:16 Baso % (Auto) 0.3 % 11/05/19 16:16 Immature Gran # (Auto) 0.01 K/uL (0.00-0.02) 11/05/19 16:16 Neut # (Auto) 5.82 K/uL (1.4-6.5) 11/05/19 16:16 Lymph # (Auto) 1.24 K/uL (1.2-3.4) 11/05/19 16:16 Bandera # (Auto) 0.72 K/uL (0.11-0.59) H 11/05/19 16:16 Eos # (Auto) 0.09 K/uL (0-0.5) 11/05/19 16:16 Baso # (Auto) 0.02 K/uL (0-0.2) 11/05/19 16:16 Sodium 134 mmol/L (136-145) L 11/05/19 16:16 Potassium 4.9 mmol/L (3.5-5.1) 11/05/19 16:16 Chloride 102 mmol/L (98-107) 11/05/19 16:16 Carbon Dioxide 24 mmol/L (21-32) 11/05/19 16:16 Anion Gap 8.0 (3-11) 11/05/19 16:16 BUN 58 mg/dl (7-18) H D 11/05/19 16:16 Creatinine 3.31 mg/dl (0.6-1.2) H D 11/05/19 16:16 Est Cr Clr Drug Dosing 13.6 ml/min 11/05/19 16:16 Est GFR ( Amer) 14.9 11/05/19 16:16 Est GFR (Non-Af Amer) 12.9 11/05/19 16:16 BUN/Creatinine Ratio 17.5 (10-20) 11/05/19 16:16 Glucose 115 mg/dl (70-99) H 11/05/19 16:16 Calcium 9.5 mg/dl (8.5-10.1) 11/05/19 16:16 Phosphorus 4.5 mg/dl (2.5-4.9) 11/05/19 16:16 Magnesium 2.2 mg/dl (1.8-2.4) 11/05/19 16:16 Total Bilirubin 0.7 mg/dl (0.2-1) 11/05/19 16:16 AST 23 U/L (15-37) 11/05/19 16:16 ALT 22 U/L (12-78) 11/05/19 16:16 Alkaline Phosphatase 56 U/L (45-117) 11/05/19 16:16 Troponin I < 0.015 ng/ml (0-0.045) 11/05/19 16:16 Total Protein 7.3 gm/dl (6.4-8.2) 11/05/19 16:16 Albumin 3.6 gm/dl (3.4-5.0) 11/05/19 16:16 Globulin 3.7 gm/dl (2.5-4.0) 11/05/19 16:16 Albumin/Globulin Ratio 1.0 (0.9-2) 11/05/19 16:16 Lipase 168 U/L (73-393) 11/05/19 16:16 TSH 3.870 uIu/ml (0.300-4.500) 11/05/19 16:16 Specimen Hemolysis 11/05/19 16:16 Urine Color Dark Yellow 11/05/19 16:21 Urine Appearance Cloudy (Clear) A 11/05/19 16:21 Urine pH 5.0 (4.5-7.5) 11/05/19 16:21 Ur Specific [place] 1.020 (1.000-1.030) 11/05/19 16:21 Urine Protein 1+ (Negative) H 11/05/19 16:21 Urine Glucose (UA) Negative (Negative) 11/05/19 16:21 Urine Ketones Negative (Negative) 11/05/19 16:21 Urine Blood Negative (Negative) 11/05/19 16:21 Urine Nitrite Negative (Negative) 11/05/19 16:21 Urine Bilirubin Negative (Negative) 11/05/19 16:21 Urine Urobilinogen Negative (Negative) 11/05/19 16:21 Ur Leukocyte Esterase Negative (Negative) 11/05/19 16:21 Urine WBC (Auto) 1-5 /hpf (0-5) 11/05/19 16:21 Urine RBC (Auto) 0-4 /hpf (0-4) 11/05/19 16:21 U Hyaline Cast (Auto) 1-5 /lpf (0-5) 11/05/19 16:21 U Epithel Cells (Auto) >30 /lpf (0-5) H 11/05/19 16:21 Urine Bacteria (Auto) Negative (Negative) 11/05/19 16:21 Diagnostic Findings [facility], [place] [phone] CT Scan Report Patient: STEPHANIEPACO YOUNGdmkeny Date: 11/05/19 MR#: [id number]: [address] [facility] Acct ID:[id number]: [facility] Zip[facility] [place] [id number] Age: 74Location: ED Sex: F Room/Bed: Att Phy:Diagnosis: NAUSEA, HIGH BP, LOWER BELLY PAIN Elicia Phy: Thi Cherry CRNPService Date: 11/05/19 Fam Phy:Interpreting Phy: Tyree Ruano MD Admit Phy: Ordering Phy: Salty Bauman M.D. cc: ~ ABDOMEN AND PELVIS CT WITHOUT CONTRAST CT DOSE: 923.31 mGycm HISTORY: Left lower quadrant pain. Nausea. TECHNIQUE: Multiaxial CT images of the abdomen and pelvis were performed without contrast. A dose lowering technique was utilized adhering to the principles of ALARA. COMPARISON STUDY: Abdomen and pelvis CT 04/26/2007. FINDINGS: The lung bases are clear. No pneumoperitoneum. No pneumatosis. No suspicious lytic are blastic osseous lesions. Cholecystectomy. No hepatic lesions. The adrenal glands are unremarkable. Residual contrast within the kidneys from the prior CT examination. Bilateral nephrolithiasis. No hydronephrosis. Evaluation for a ureteral stone is suboptimal due to the contrast within the urinary system. However, no definite ureteral calculi identified. There is contrast within the bladder. The uterus and right ovary are unremarkable. There is a 9 mm hypodense lesion within the left ovary. Moderate perinephric edema. No bowel wall thickening or obstruction. Normal appendix. Stable 7 cm calcified splenic cyst. Possible 1.4 cm mass within the pancreatic tail with distal atrophy of the pancreatic tail. No retroperitoneal lymphadenopathy. IMPRESSION: 1. No bowel wall thickening or obstruction. 2. Bilateral nephrolithiasis. No hydronephrosis. 3. Stable 7 cm calcified splenic cyst. 4. Possible 1.4 cm pancreatic tail lesion. Nonemergent dedicated pancreatic MRI with contrast is recommended for further evaluation. 5. Moderate bilateral perinephric edema. This is likely chronic. Recommend correlation with urinalysis to exclude the less likely possibility of a pyelonephritis. 6. Cholecystectomy. ACT 112: Negative or not required by law. Electronically signed by: Tyree Ruano M.D. 11/05/2019 5:46 PM Dictated: 11/05/19 1735 Transcribed: 11/05/19 1735 Code Status & VTE Plan Code Status Full code VTE Prophylaxis Plan VTE Prophylaxis will be ordered: Yes PG Care Time/CCT Total # of Minutes Spent Total Time Spent with Patient: Total time spent is greater than 50% in coordination of care (as documented) at patient's floor/unit and/or counseling patient: (1) Carotid artery disease Carotid artery disease type: unspecified Laterality: bilateral Qualified Code(s): I73.9 - Peripheral vascular disease, unspecified (2) Hyperlipidemia Hyperlipidemia type: mixed hyperlipidemia Qualified Code(s): E78.2 - Mixed hyperlipidemia (3) Hypothyroidism Hypothyroidism type: acquired Qualified Code(s): E03.9 - Hypothyroidism, unspecified
--- NOTE | 2019-11-05 22:17 | Emergency Department Note ---
Entered by Michelle Longo acting as a scribe for History of Present Illness General Chief complaint: Hypertension Stated complaint: NAUSEA, HIGH BP, LOWER BELLY PAIN Time Seen by Provider: 11/05/19 15:48 History of Present Illness Provider complaint: abdominal pain Onset (ago): day(s) 2 Location: abdomen Pain Consistency: + other (worsening) Maximum Pain Intensity: 3 Quality: + sharp and + dull Associated symptoms: + other (nausea, BP normal this morning but 216 systolic later, having small bowel movements) The patient is a 74 year old female who presents to the ED with complaints of worsening abdominal pain that started 2 days ago. The patient states that her pain starts as sharp and then become dull. The patient notes that she is also slightly nauseas. The patient states that she was seen here 2 days ago for high blood pressure, nausea and back pain. The patient states that her blood pressure was normal this morning, but jumped to systolic of 216 later on. The patient states that she has been having very small bowel movements but this is normal for her. The patient notes that she takes Plavix and baby aspirin daily. Home Medications Home Medications Medication Instructions Recorded Confirmed Type ascorbic acid (vitamin C) 1 cap PO BID 08/08/18 11/05/19 History cholecalciferol (vitamin D3) 4,000 unit PO QAM 08/08/18 11/05/19 History [Vitamin D3] coenzyme Q10 [Co Q-10] 0 mg PO QDD 08/08/18 11/05/19 History magnesium oxide 400 mg PO QDD 08/08/18 11/05/19 History multivitamin 1 tab PO QAM 08/08/18 11/05/19 History omega 4-nol-sjm-fish oil [Fish Oil] 1 cap PO QAM 08/08/18 11/05/19 History loratadine 10 mg PO QAM 02/25/19 11/05/19 History clopidogrel 75 mg PO QAM #30 tab 03/01/19 11/05/19 Rx insulin aspart U-100 100 unit/mL See Rx Instructions SUBCUT AC 05/04/19 11/05/19 History (3 mL) subcutaneous pen blood-glucose meter #1 ea 06/02/19 11/02/19 History clotrimazole-betamethasone 1 1 appln TOPICAL BID PRN #1 gm 06/02/19 11/05/19 History %-0.05 % topical cream pen needle, diabetic 32 gauge x #10 ea 06/02/19 11/02/19 History " carvedilol 25 mg tablet 25 mg PO BID #180 tab 09/17/19 11/05/19 Rx losartan 100 mg tablet 100 mg PO QAM #90 tab 09/17/19 11/05/19 Rx atorvastatin 20 mg tablet 20 mg PO HS #30 tab 11/02/19 11/05/19 Rx blood sugar diagnostic #100 ea 11/02/19 11/02/19 Rx hydralazine 100 mg tablet 100 mg PO BID #60 tab 11/02/19 11/05/19 Rx insulin glargine [Basaglar KwikPen 30 units SUBCUT HS 11/03/19 11/05/19 History U-100 Insulin] meclizine 25 mg PO TID PRN #20 tab 11/03/19 11/05/19 Rx levothyroxine 25 mcg PO QAM 11/05/19 11/05/19 History Allergies Allergy/AdvReac Type Severity Reaction Status Date / Time cortisone Allergy Mild "muscle Verified 11/05/19 17:08 weakness, makes me feel weird" clams Allergy Unknown VOMITING Verified 11/05/19 17:08 prednisone Allergy Unknown "MAKES ME Verified 11/05/19 17:08 FEEL WEIRD AND SPACEY" Past Med/Surg History Medical History Allergic rhinitis (Acute) Anemia (Acute) Carotid artery stenosis 02/2019: CT angiogram of the neck which showed some plaque formation bilaterally, but not hemodynamically significant. There was 50% stenosis noted on the right internal carotid artery, 40% on the left internal carotid. Cerebrovascular disease (Chronic) 02/2019: very small periventricular CVA without residual symptoms Chronic back pain Diabetes mellitus with kidney complication Diabetes mellitus, type 2 Diabetic retinopathy Essential (primary) hypertension Gastroparesis Hyperlipidemia Hyperlipidemia Hypertension Hypothyroidism "low end of normal" Hypothyroidism Osteoarthritis Polycystic ovarian syndrome Proliferative diabetic retinopathy with macular edema Stage III chronic kidney disease Type 2 diabetes mellitus with insulin therapy Surgical History History of bilateral cataract extraction History of breast biopsy right--benign History of carpal tunnel repair bilateral History of cholecystectomy History of colonoscopy History of dilatation and curettage History of surgery bilateral cyst removal from ovaries History of tonsillectomy and adenoidectomy History of tooth extraction wisdom teeth Family History Father Family history of diabetes mellitus Mother Family history of diabetes mellitus Social History Preferred Language: Kazakh Communication Ability: Effective 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 and A total of 10 systems reviewed and were otherwise negative Physical Exam Vital Signs Vital Signs - 24 hr 11/05/19 15:32 11/05/19 16:14 11/05/19 16:20 Temperature 37 C Temperature Source Oral Pulse Rate 81 81 79 Pulse Rate from SpO2 Sensor Respiratory Rate 20 19 15 Blood Pressure 216/73 H Blood Pressure Mean 120 Pulse Oximetry 99 Oxygen Delivery Method Room Air Sepsis Recent Fever Within 48 Hours No Sepsis New/Unexplained Change in Mental Status No Sepsis Action Taken by Nursing No Action Required 11/05/19 16:29 11/05/19 16:30 11/05/19 16:40 Temperature Temperature Source Pulse Rate 83 77 Pulse Rate from SpO2 Sensor Respiratory Rate 19 17 Blood Pressure Blood Pressure Mean Pulse Oximetry 93 Oxygen Delivery Method Room Air Sepsis Recent Fever Within 48 Hours Sepsis New/Unexplained Change in Mental Status Sepsis Action Taken by Nursing 11/05/19 16:46 11/05/19 16:50 11/05/19 17:00 Temperature Temperature Source Pulse Rate 81 82 84 Pulse Rate from SpO2 Sensor 81 82 84 Respiratory Rate 19 17 20 Blood Pressure 217/93 H 188/107 H Blood Pressure Mean 180 154 Pulse Oximetry 95 97 96 Oxygen Delivery Method Sepsis Recent Fever Within 48 Hours Sepsis New/Unexplained Change in Mental Status Sepsis Action Taken by Nursing 11/05/19 17:01 11/05/19 17:10 11/05/19 17:27 Temperature Temperature Source Pulse Rate 83 82 83 Pulse Rate from SpO2 Sensor 83 83 83 Respiratory Rate 14 12 18 Blood Pressure Blood Pressure Mean Pulse Oximetry 98 96 97 Oxygen Delivery Method Sepsis Recent Fever Within 48 Hours Sepsis New/Unexplained Change in Mental Status Sepsis Action Taken by Nursing 11/05/19 17:30 11/05/19 17:40 11/05/19 17:50 Temperature Temperature Source Pulse Rate 83 82 80 Pulse Rate from SpO2 Sensor 83 82 81 Respiratory Rate 15 16 14 Blood Pressure Blood Pressure Mean Pulse Oximetry 96 96 95 Oxygen Delivery Method Sepsis Recent Fever Within 48 Hours Sepsis New/Unexplained Change in Mental Status Sepsis Action Taken by Nursing 11/05/19 18:00 11/05/19 18:01 11/05/19 18:10 Temperature Temperature Source Pulse Rate 82 80 84 Pulse Rate from SpO2 Sensor 83 81 83 Respiratory Rate 19 14 23 Blood Pressure 177/81 H Blood Pressure Mean 142 Pulse Oximetry 97 96 97 Oxygen Delivery Method Sepsis Recent Fever Within 48 Hours Sepsis New/Unexplained Change in Mental Status Sepsis Action Taken by Nursing 11/05/19 18:20 11/05/19 18:30 11/05/19 18:40 Temperature Temperature Source Pulse Rate 82 80 81 Pulse Rate from SpO2 Sensor 82 80 81 Respiratory Rate 16 16 15 Blood Pressure Blood Pressure Mean Pulse Oximetry 97 97 97 Oxygen Delivery Method Sepsis Recent Fever Within 48 Hours Sepsis New/Unexplained Change in Mental Status Sepsis Action Taken by Nursing 11/05/19 18:50 11/05/19 19:00 11/05/19 19:01 Temperature Temperature Source Pulse Rate 79 85 85 Pulse Rate from SpO2 Sensor 79 85 85 Respiratory Rate 14 22 21 Blood Pressure 182/102 H Blood Pressure Mean 154 Pulse Oximetry 97 97 97 Oxygen Delivery Method Sepsis Recent Fever Within 48 Hours Sepsis New/Unexplained Change in Mental Status Sepsis Action Taken by Nursing 11/05/19 19:10 11/05/19 19:20 11/05/19 19:30 Temperature Temperature Source Pulse Rate 85 89 84 Pulse Rate from SpO2 Sensor 86 89 84 Respiratory Rate 16 15 14 Blood Pressure Blood Pressure Mean Pulse Oximetry 96 97 97 Oxygen Delivery Method Sepsis Recent Fever Within 48 Hours Sepsis New/Unexplained Change in Mental Status Sepsis Action Taken by Nursing 11/05/19 19:40 11/05/19 19:50 11/05/19 20:00 Temperature Temperature Source Pulse Rate 85 89 87 Pulse Rate from SpO2 Sensor 85 89 90 Respiratory Rate 15 19 20 Blood Pressure 190/84 H Blood Pressure Mean 127 Pulse Oximetry 96 97 97 Oxygen Delivery Method Sepsis Recent Fever Within 48 Hours Sepsis New/Unexplained Change in Mental Status Sepsis Action Taken by Nursing 11/05/19 20:01 11/05/19 20:10 11/05/19 20:20 Temperature Temperature Source Pulse Rate 88 87 88 Pulse Rate from SpO2 Sensor 87 87 88 Respiratory Rate 20 18 15 Blood Pressure Blood Pressure Mean Pulse Oximetry 97 97 96 Oxygen Delivery Method Sepsis Recent Fever Within 48 Hours Sepsis New/Unexplained Change in Mental Status Sepsis Action Taken by Nursing 11/05/19 20:30 11/05/19 20:40 11/05/19 20:50 Temperature Temperature Source Pulse Rate 82 84 88 Pulse Rate from SpO2 Sensor 82 84 89 Respiratory Rate 16 12 14 Blood Pressure Blood Pressure Mean Pulse Oximetry 97 97 97 Oxygen Delivery Method Sepsis Recent Fever Within 48 Hours Sepsis New/Unexplained Change in Mental Status Sepsis Action Taken by Nursing 11/05/19 21:00 11/05/19 21:01 11/05/19 21:15 Temperature Temperature Source Pulse Rate 87 88 88 Pulse Rate from SpO2 Sensor Respiratory Rate 19 17 16 Blood Pressure Blood Pressure Mean Pulse Oximetry Oxygen Delivery Method Sepsis Recent Fever Within 48 Hours Sepsis New/Unexplained Change in Mental Status Sepsis Action Taken by Nursing 11/05/19 21:20 11/05/19 21:30 11/05/19 21:40 Temperature Temperature Source Pulse Rate 89 87 88 Pulse Rate from SpO2 Sensor 88 88 Respiratory Rate 20 17 13 Blood Pressure Blood Pressure Mean Pulse Oximetry 98 98 Oxygen Delivery Method Sepsis Recent Fever Within 48 Hours Sepsis New/Unexplained Change in Mental Status Sepsis Action Taken by Nursing 11/05/19 21:41 11/05/19 21:42 11/05/19 21:43 Temperature Temperature Source Pulse Rate 89 91 H 90 Pulse Rate from SpO2 Sensor 90 91 H Respiratory Rate 20 17 16 Blood Pressure Blood Pressure Mean Pulse Oximetry 97 98 Oxygen Delivery Method Sepsis Recent Fever Within 48 Hours Sepsis New/Unexplained Change in Mental Status Sepsis Action Taken by Nursing 11/05/19 21:44 Temperature Temperature Source Pulse Rate 90 Pulse Rate from SpO2 Sensor 91 H Respiratory Rate 16 Blood Pressure Blood Pressure Mean Pulse Oximetry 97 Oxygen Delivery Method Sepsis Recent Fever Within 48 Hours Sepsis New/Unexplained Change in Mental Status Sepsis Action Taken by Nursing GENERAL: Awake, alert, fatigued-appearing, in no distress HENT: Normocephalic, atraumatic. Oropharynx with dry mucous membranes and otherwise unremarkable. EYES: Normal conjunctiva. Sclera non-icteric. NECK: Supple. No nuchal rigidity. FROM. No JVD. RESPIRATORY: Clear to auscultation bilaterally. CARDIAC: Regular rate, normal rhythm. Extremities warm and well perfused. Pulses equal. ABDOMEN: Soft, non-distended. Mild left lower quadrant tenderness. No rebound or guarding. No masses. RECTAL: Deferred. MUSCULOSKELETAL: Chest examination reveals no tenderness. The back is sym metrical on inspection without obvious abnormality. There is no CVA tenderness to palpation. No joint edema. LOWER EXTREMITIES: Calves are equal size bilaterally and non-tender. No edema. No discoloration. NEURO: Normal sensorium. No sensory or motor deficits noted. SKIN: No rash or jaundice noted. Course Course 1629: Past medical records reviewed. The patient was evaluated in room C03. A complete history and physical exam was performed. 2016: I discussed the patient's case with Dr. Napoles [facility], Hospitalist. He will evaluate the patient for further management. Consultations Consultation #1: I discussed the patient's case with Dr. Napoles [facility], Hospitalist. He will evaluate the patient for further management. Time: 20:16 Administered Medications Carvedilol (Coreg) 25 mg PO BID YAMILA Stop: 12/05/19 22:39 Last Admin: 11/05/19 23:54 Dose: 25 mg Documented by: [id number] Hydralazine HCl (Apresoline) 100 mg PO BID YAMILA Stop: 12/05/19 22:39 Last Admin: 11/05/19 23:54 Dose: 100 mg Documented by: [id number] Sodium Chloride (Nss 1000ml) 1,000 mls @ 100 mls/hr IV .Q10H YAMILA Stop: 12/05/19 22:39 Last Admin: 11/05/19 23:48 Dose: 100 mls/hr Documented by: [id number] Discontinued Medications Sodium Chloride (Nss) 500 mls @ 999 mls/hr IV .Q31M ONE Stop: 11/05/19 16:20 Last Infusion: 11/05/19 17:27 Dose: 0 mls/hr Documented by: [id number] Admin: 11/05/19 16:45 Dose: 999 mls/hr Documented by: [id number] Prochlorperazine (Compazine) 1 mls @ 1 mls/min IV ONE ONE Stop: 11/05/19 16:30 Last Admin: 11/05/19 16:46 Dose: 1 mls/min Documented by: [id number] Famotidine (Pepcid 20mg Iv Push) 20 mg in 5 mls @ 2.5 mls/min IV NOW STA Stop: 11/05/19 16:30 Last Admin: 11/05/19 16:46 Dose: 2.5 mls/min Documented by: [id number] Acetaminophen (Ofirmev) 1,000 mg in 100 mls @ 400 mls/hr IV NOW STA Stop: 11/05/19 16:43 Last Infusion: 11/05/19 17:10 Dose: 0 mls/hr Documented by: [id number] Admin: 11/05/19 16:46 Dose: 400 mls/hr Documented by: [id number] Sodium Chloride (Nss) 500 mls @ 999 mls/hr IV .Q31M ONE Stop: 11/05/19 19:06 Last Infusion: 11/05/19 19:25 Dose: 0 mls/hr Documented by: [id number] Admin: 11/05/19 18:53 Dose: 999 mls/hr Documented by: [id number] Medical Decision Making Differential Diagnosis Differential diagnosis: Etiologies such as biliary colic, cholecystitis, hepatitis, perihepatitis, pancreatitis, cardiac disease, pancreatitis, gastritis, peptic ulcer disease, appendicitis, ovarian cyst, ovarian torsion, ectopic , pelvic inflammatory disease, cystitis, diverticulitis, mesenteric ischemia, inflammatory bowel disease, ileus, bowel obstruction, aortic pathology, shingles, as well as others were considered. Medical Records Attestation: I reviewed the patient's medical records. Home Medications Current Medication List: was personally reviewed by me Laboratory Data Attestation: I reviewed the patient's lab results. Result diagrams: 11/05/19 16:16 11/05/19 16:16 Lab Results 11/05/19 11/05/19 11/05/19 Range/Units 16:16 16:16 16:21 WBC 7.90 (4.8-10.8) K/uL RBC 3.17 L (4.2-5.4) M/uL Hgb 10.9 L (12.0-16.0) g/dL Hct 31.6 L (37-47) % MCV 99.7 (80-100) fL MCH 34.4 H (25-34) pg MCHC 34.5 (32-36) g/dL RDW Std Deviation 45.0 (36.4-46.3) fL RDW Coeff of [place] 12.3 (11.5-14.5) % Plt Count 152 (130-400) K/uL MPV 9.5 (7.4-10.4) fL Immature Gran % (Auto) 0.1 % Neut % (Auto) 73.7 % Lymph % (Auto) 15.7 % [place] % (Auto) 9.1 % Eos % (Auto) 1.1 % Baso % (Auto) 0.3 % Immature Gran # (Auto) 0.01 (0.00-0.02) K/uL Neut # (Auto) 5.82 (1.4-6.5) K/uL Lymph # (Auto) 1.24 (1.2-3.4) K/uL [place] # (Auto) 0.72 H (0.11-0.59) K/uL Eos # (Auto) 0.09 (0-0.5) K/uL Baso # (Auto) 0.02 (0-0.2) K/uL Sodium 134 L (136-145) mmol/L Potassium 4.9 (3.5-5.1) mmol/L Chloride 102 (98-107) mmol/L Carbon Dioxide 24 (21-32) mmol/L Anion Gap 8.0 (3-11) BUN 58 H D (7-18) mg/dl Creatinine 3.31 H D (0.6-1.2) mg/dl Est Cr Clr Drug Dosing 13.6 ml/min Est GFR ( Amer) 14.9 Est GFR (Non-Af Amer) 12.9 BUN/Creatinine Ratio 17.5 (10-20) Glucose 115 H (70-99) mg/dl Calcium 9.5 (8.5-10.1) mg/dl Phosphorus 4.5 (2.5-4.9) mg/dl Magnesium 2.2 (1.8-2.4) mg/dl Total Bilirubin 0.7 (0.2-1) mg/dl AST 23 (15-37) U/L ALT 22 (12-78) U/L Alkaline Phosphatase 56 (45-117) U/L Troponin I < 0.015 (0-0.045) ng/ml Total Protein 7.3 (6.4-8.2) gm/dl Albumin 3.6 (3.4-5.0) gm/dl Globulin 3.7 (2.5-4.0) gm/dl Albumin/Globulin Ratio 1.0 (0.9-2) Lipase 168 (73-393) U/L TSH 3.870 (0.300-4.500) uIu/ml Specimen Hemolysis Urine Color Dark Yellow Urine Appearance Cloudy A (Clear) Urine pH 5.0 (4.5-7.5) Ur Specific [place] 1.020 (1.000-1.030) Urine Protein 1+ H (Negative) Urine Glucose (UA) Negative (Negative) Urine Ketones Negative (Negative) Urine Blood Negative (Negative) Urine Nitrite Negative (Negative) Urine Bilirubin Negative (Negative) Urine Urobilinogen Negative (Negative) Ur Leukocyte Esterase Negative (Negative) Urine WBC (Auto) 1-5 (0-5) /hpf Urine RBC (Auto) 0-4 (0-4) /hpf U Hyaline Cast (Auto) 1-5 (0-5) /lpf U Epithel Cells (Auto) >30 H (0-5) /lpf Urine Bacteria (Auto) Negative (Negative) Imaging Data Radiologist's Impression: Radiology results as stated below per my review and the radiologist's interpretation: ABDOMEN AND PELVIS CT WITHOUT CONTRAST CT DOSE: 923.31 mGycm HISTORY: Left lower quadrant pain. Nausea. TECHNIQUE: Multiaxial CT images of the abdomen and pelvis were performed without contrast. A dose lowering technique was utilized adhering to the principles of ALARA. COMPARISON STUDY: Abdomen and pelvis CT 04/26/2007. FINDINGS: The lung bases are clear. No pneumoperitoneum. No pneumatosis. No suspicious lytic are blastic osseous lesions. Cholecystectomy. No hepatic lesions. The adrenal glands are unremarkable. Residual contrast within the kidne ys from the prior CT examination. Bilateral nephrolithiasis. No hydronephrosis. Evaluation for a ureteral stone is suboptimal due to the contrast within the urinary system. However, no definite ureteral calculi identified. There is contrast within the bladder. The uterus and right ovary are unremarkable. There is a 9 mm hypodense lesion within the left ovary. Moderate perinephric edema. No bowel wall thickening or obstruction. Normal appendix. Stable 7 cm calcified splenic cyst. Possible 1.4 cm mass within the pancreatic tail with distal atrophy of the pancreatic tail. No retroperitoneal lymphadenopathy. IMPRESSION: 1. No bowel wall thickening or obstruction. 2. Bilateral nephrolithiasis. No hydronephrosis. 3. Stable 7 cm calcified splenic cyst. 4. Possible 1.4 cm pancreatic tail lesion. Nonemergent dedicated pancreatic MRI with contrast is recommended for further evaluation. 5. Moderate bilateral perinephric edema. This is likely chronic. Recommend correlation with urinalysis to exclude the less likely possibility of a pyelonephritis. 6. Cholecystectomy. ACT 112: Negative or not required by law. Electronically signed by: Tyree Ruano M.D. 11/05/2019 5:46 PM ECG Data Attestation: I personally reviewed and interpreted this ECG as follows: Indication: + abdominal pain Rate (beats per minute): 78 Rhythm: + normal sinus ECG [place]: + Normal ECG ST segments: no ST depression and no ST elevation ECG Findings: + Other (QTC 410); no PACs and no PVCs Blood Pressure Blood Pressure Findings: Elevated blood pressure Blood Pressure Disposition: further management by hospitalist MDM Narrative The patient is a pleasant 74-year-old woman with a past medical history of CKD, hypertension, cerebrovascular disease, carotid artery stenosis, gastroparesis, diabetes who presents emergency department with left lower abdominal pain in the setting of being seen in the emergency department 2 days ago for elevated blood pressure with associated confusion and dizziness per HPI. The patient had a CTA head and neck were performed which was negative for ICH or ischemia but did demonstrate interval progression of her carotid disease. Findings were reviewed with vascular surgery and recommendations were for outpatient follow-up. On arrival patient is fatigued appearing but no acute distress, afebrile stable vital signs. On exam the patient appears clinically dry. She is neurologically intact. She has mild left lower quadrant tenderness without guarding or rebound. EKG without overt acute ischemia. WBC and platelets within normal limits. H/H 10.9/31.6 approximate to recent values. Chemistry without acidosis. However does demonstrate acute on chronic renal insufficiency with a creatinine of 3.3 which is increased from patient's baseline range of 1.5-2. Electrolytes and LFTs unremarkable. Troponin negative/undetectable. UA negative for infection but does demonstrate 1+ protein. CT of the abdomen and pelvis negative for acute findings. There is comment of bilateral perinephric edema that is likely chronic. Moreover given the patient's urine analysis shows no evidence of infection unlikely to be pyelonephritis at this time. There is an incidental 1.4 cm pancreatic lesion that will require outpatient follow-up with MRI. Patient was reevaluated and was feeling improved however still with some lower abdominal discomfort. Given the patient's acute on chronic renal insufficiency in the setting of her pain reasonable to admit for further hydrat ion and monitoring of her kidney function. Patient was agreeable with this. Case was discussed with Dr. Turcios, [facility] hospitalist, who will evaluate the patient for admission. Impression & Plan Acute on chronic renal failure, Abdominal pain, Dehydration, Hypertension Discharge Plan Visit Data *Final* Discharge Date/Time: 11/05/19 22:07 Chief Complaint: Hypertension Stated Complaint: NAUSEA, HIGH BP, LOWER BELLY PAIN ED Provider: Salty Bauman Discharge Problem: Acute on chronic renal failure, Abdominal pain, Dehydration, Hypertension Patient Disposition: Admitted As Inpatient Discharge Instructions Interventions: ED Discharge Assessment Last Done: 11/05/19 22:07 Discharge Problem: Acute on chronic renal failure Qualifiers: Acute renal failure type: unspecified Chronic kidney disease stage: unspecified stage Qualified Code(s): N17.9 - Acute kidney failure, unspecified Abdominal pain Qualifiers: Abdominal location: unspecified location Qualified Code(s): R10.9 - Unspecified abdominal pain The scribe's documentation has been prepared under my direction and personally reviewed by me in its entirety. I confirm that the note above accurately reflects all work, treatment, procedures, and medical decision making performed by me.
[2019-11-05] MEDS ORDERED: DEXTROSE 50% 50 ML SYRINGE IV PRN (22:40)
[2019-11-05] MEDS ORDERED: GLUCAGON FOR INJ 1 MG VIAL SQ PRN (22:40)
[2019-11-05] MEDS ORDERED: ONDANSETRON INJ 2 MG/ML 2 ML VIAL IV PRN (22:40)
[2019-11-05] MEDS ORDERED: CLOTRIMAZOLE/BETAMETHASONE CR 15 GM TUBE EXT PRN (22:40)
[2019-11-05] MEDS ORDERED: GLUCOSE 40% GEL 15 GM TUBE PO PRN (22:40)
[2019-11-05] MEDS ORDERED: ALUMINUM/MAGNESIUM SUSP 30 ML UDC PO PRN (22:40)
[2019-11-05] MEDS ORDERED: ACETAMINOPHEN 325 MG TAB PO PRN (22:40)
[2019-11-05] MEDS ORDERED: CARBOHYDRATES FOR HYPOGLYCEMIA PO PRN (22:40)
[2019-11-05] MEDS ORDERED: GLUCOSE 10 TABS/TUBE PO PRN (22:40)
[2019-11-05] MEDS ORDERED: MAGNESIUM HYDROXIDE SUSP 30 ML UDC PO PRN (22:40)
[2019-11-05] MEDS ORDERED: MECLIZINE HCL 25 MG TAB PO PRN (22:57)
[2019-11-05] MEDS: SODIUM CHLORIDE 0.9% 1000ML 1,000 ML IV SCH (23:48)
[2019-11-05] MEDS: carvediloL 25 MG TAB PO SCH (23:54)
[2019-11-05] MEDS: HydrALAZINE TAB 50 MG TAB PO SCH (23:54)
[2019-11-06] MEDS: LEVOTHYROXINE SODIUM 25 MCG TABLET PO SCH (05:38)
--- NOTE | 2019-11-06 06:20 | Electrocardiogram Report ---
Test Reason : Blood Pressure : / mmHG Vent. Rate : 078 BPM Atrial Rate : 078 BPM P-R Int : 154 ms QRS Dur : 080 ms QT Int : 360 ms P-R-T Axes : 048 011 000 degrees QTc Int : 410 ms Normal sinus rhythm Nonspecific ST abnormality When compared with ECG of 03-NOV-2019 19:19, Questionable change in QRS axis Confirmed by Roland Vilchis ([id number]) on 11/06/2019 6:19:42 AM Referred By: Confirmed By:Roland Vilchis
[2019-11-06 07:20] LABS: Basophils # (auto) 0.01 K/uL (0-0.2); Basophils % (auto) 0.1 %; Eosinophils # (auto) 0.14 K/uL (0-0.5); Eosinophils % (auto) 2.1 %; Hematocrit (blood only) 27.9 % (37-47); Hemoglobin 9.6 g/dL (12.0-16.0); Immature Granulocytes # (auto) 0.01 K/uL (0.00-0.02); Immature Granulocytes % (auto) 0.1 %; Lymphocytes # (auto) 1.27 K/uL (1.2-3.4); Lymphocytes % (auto) 18.6 %; Mean Corpuscular Hemoglobin 34.3 pg (25-34); Mean Corpuscular Hgb Conc 34.4 g/dL (32-36); Mean Corpuscular Volume 99.6 fL (80-100); Mean Platelet Volume 9.3 fL (7.4-10.4); Monocytes # (auto) 0.82 K/uL (0.11-0.59); Neutrophils # (auto) 4.56 K/uL (1.4-6.5); Neutrophils % (auto) 67.1 %; Platelet Count 123 K/uL (130-400); RDW Coefficient of Variation 12.4 % (11.5-14.5); RDW Standard Deviation 45.5 fL (36.4-46.3); White Blood Count 6.81 K/uL (4.8-10.8)
--- NOTE | 2019-11-06 07:46 | Nephrology Consultation ---
Date of Consultation November 06, 2019 Assessment & Plan (1) Acute kidney injury superimposed on chronic kidney disease: 74-year-old female with stage 3 chronic kidney disease, hypertension, diabetes, abdomen admitted with abdominal pain and found to have acute kidney injury. She had IV contrast exposure 2 days prior to this admission for CTA. Also found to have more than 75 percent internal carotid artery stenosis. Considering persistently elevated blood pressure, atherosclerotic disease in carotid arteries as well as acute kidney injury, concern for underlying renovascular disease, although Doppler in 2017 was otherwise unremarkable. KIMANI remains a possibility as well, as cr was at b/l just 2 days ago. No post renal obstruction on imaging, UA is not suggestive of glomerular disease. --check renal artery Doppler --monitor renal function with daily renal panel. --OK to hold Losartan for now --If BP remain elevated, suggest starting on Amlodipine --dose meds for GFR < 30 Will follow Thank you for the consult (2) Hypertension: History of Present Illness Reason for Consultation: Acute kidney injury with history of CKD. Attending Physician: Mukesh Johnson MD History of Present Illness Alyx Moralez is a 74-year-old female with past medical history significant for stage 3 CKD, hypertension, diabetes, admitted to the hospital with abdominal pain and acute kidney injury. Nephrology consult was requested for further management of acute kidney injury. Electronic medical records including labs and imaging were reviewed in detail during patient's visit. Alyx initially presented to ER on 11/03/19 with hypertensive urgency, nausea and abdominal pain. In ER her blood pressure eventually improved and she was discharged. CTA on showed right internal carotid artery >75 percent stenosis, left 30 percent stenosis. She presented again yesterday with abdominal pain, nausea. She had non contrast CT abdomen pelvis showing no intestinal obstruction, had bilateral nonobstructing renal calculi. She was also found to have less than 1 centimeter sized pancreatic tail mass. UA was negative for UTI. BP ahs been variable, but mostly elevated. She has stage III CKD with baseline creatinine 1.5-2.0 in the setting hypertension, diabetes and history of atherosclerotic disease. On 11/03/2028 her creatinine was 1.6 which was found to be 3.3 on admission yesterday and worsened to 3.6 today. Other electrolyte acceptable. Denies recent NSAID use. Her blood pressure has been quite variable in the hospital over last 2 days but mostly elevated. Has been making decent amount of urine. No sign of significant volume overload. She has been continuing on losartan 100, carvedilol, hydralazine 100 b.i.d., losartan currently on hold due to DHRUV. No f/h of chronic kidney disease or end-stage renal disease. Both current had history of diabetes. Former smoker. Continues to have some lower abdominal /left LQ pain but much improved. Denies dysuria, no fever, chills. Abdominal pain somewhat improved Allergies Allergy/AdvReac Type Severity Reaction Status Date / Time cortisone Allergy Mild "muscle Verified 11/05/19 17:08 weakness, makes me feel weird" clams Allergy Unknown VOMITING Verified 11/05/19 17:08 prednisone Allergy Unknown "MAKES ME Verified 11/05/19 17:08 FEEL WEIRD AND SPACEY" Home Medications Home Medications Medication Instructions Recorded Confirmed Type ascorbic acid (vitamin C) 1 cap PO BID 08/08/18 11/05/19 History cholecalciferol (vitamin D3) 4,000 unit PO QAM 08/08/18 11/05/19 History [Vitamin D3] coenzyme Q10 [Co Q-10] 0 mg PO QDD 08/08/18 11/05/19 History magnesium oxide 400 mg PO QDD 08/08/18 11/05/19 History multivitamin 1 tab PO QAM 08/08/18 11/05/19 History omega 5-xdf-yiu-fish oil [Fish Oil] 1 cap PO QAM 08/08/18 11/05/19 History loratadine 10 mg PO QAM 02/25/19 11/05/19 History clopidogrel 75 mg PO QAM #30 tab 03/01/19 11/05/19 Rx insulin aspart U-100 100 unit/mL See Rx Instructions SUBCUT AC 05/04/19 11/05/19 History (3 mL) subcutaneous pen blood-glucose meter #1 ea 06/02/19 11/02/19 History clotrimazole-betamethasone 1 1 appln TOPICAL BID PRN #1 gm 06/02/19 11/05/19 History %-0.05 % topical cream pen needle, diabetic 32 gauge x #10 ea 06/02/19 11/02/19 History " carvedilol 25 mg tablet 25 mg PO BID #180 tab 09/17/19 11/05/19 Rx losartan 100 mg tablet 100 mg PO QAM #90 tab 09/17/19 11/05/19 Rx atorvastatin 20 mg tablet 20 mg PO HS #30 tab 11/02/19 11/05/19 Rx blood sugar diagnostic #100 ea 11/02/19 11/02/19 Rx hydralazine 100 mg tablet 100 mg PO BID #60 tab 11/02/19 11/05/19 Rx insulin glargine [Basaglar KwikPen 30 units SUBCUT HS 11/03/19 11/05/19 History U-100 Insulin] meclizine 25 mg PO TID PRN #20 tab 11/03/19 11/05/19 Rx levothyroxine 25 mcg PO QAM 11/05/19 11/05/19 History Patient History Medical History Allergic rhinitis (Acute) Anemia (Acute) Carotid artery stenosis 02/2019: CT angiogram of the neck which showed some plaque formation bilaterally, but not hemodynamically significant. There was 50% stenosis noted on the right internal carotid artery, 40% on the left internal carotid. Cerebrovascular disease (Chronic) 02/2019: very small periventricular CVA without residual symptoms Chronic back pain Diabetes mellitus with kidney complication Diabetes mellitus, type 2 Diabetic retinopathy Essential (primary) hypertension Gastroparesis Hyperlipidemia Hyperlipidemia Hypertension Hypothyroidism "low end of normal" Hypothyroidism Osteoarthritis Polycystic ovarian syndrome Proliferative diabetic retinopathy with macular edema Stage III chronic kidney disease Type 2 diabetes mellitus with insulin therapy Surgical History History of bilateral cataract extraction History of breast biopsy right--benign History of carpal tunnel repair bilateral History of cholecystectomy History of colonoscopy History of dilatation and curettage History of surgery bilateral cyst removal from ovaries History of tonsillectomy and adenoidectomy History of tooth extraction wisdom teeth Family History Father Family history of diabetes mellitus Mother Family history of diabetes mellitus Social History Preferred Language: Mauritian Communication Ability: Effective Hydraulic Billet Maker Required: No Beliefs That Will Affect Care: None Current Living Situation: Significant Other Feels Safe at Home: Yes Smoking Status: Former smoker Tobacco Type: cigarettes ; Second Hand Exposure: Yes ( smoked) ; Hx Alcohol Use: Yes Alcohol type: beer, wine and hard liquor Hx Substance Use: No Review of Systems Review of Systems: All systems reviewed & are unremarkable except as noted in HPI & below Physical Exam Constitutional: WD/WN, vitals as above well developed and well nourished; no acute distress Eyes: PERRL, conjunctivae normal, anicteric sclerae ENMT: external ear and nose normal, oropharynx normal Ears: no hearing impairment Neck: trachea midline Respiratory: normal respiratory effort, lungs clear to auscultation no cough Auscultation: no crackles, no rales and no wheezes Cardiovascular: RRR, no murmur, no edema Gastrointestinal (Abdomen): normal bowel sounds, soft, nontender, no hepatosplenomegaly Percussion/Palpation: abdomen soft; abdomen nontender, no guarding and abdomen not rigid Musculoskeletal: Extremities: extremities normal to inspection Gait: normal gait Skin: no rashes, warm and dry Neurologic: moves all extremities and awake Psychiatric: A+Ox3, euthymic affect Results & Data Vital Signs (Past 12 Hours) Vital Signs Temp Pulse Pulse Resp BP BP Pulse Ox 11/06/19 04:09 36.8 C 88 18 111/64 97 11/06/19 01:54 87 11/06/19 00:41 36.8 C 91 H 16 163/69 H 97 11/05/19 23:55 77 133/70 11/05/19 23:36 36.8 C 85 19 145/69 H 97 11/05/19 22:01 89 19 11/05/19 22:00 88 16 183/83 H 11/05/19 21:50 92 H 14 11/05/19 21:47 90 17 97 11/05/19 21:46 90 19 189/95 H 98 11/05/19 21:45 90 14 98 11/05/19 21:44 90 16 97 11/05/19 21:43 90 16 11/05/19 21:42 91 H 17 98 11/05/19 21:41 89 20 97 11/05/19 21:40 88 13 98 11/05/19 21:30 87 17 98 11/05/19 21:20 89 20 11/05/19 21:15 88 16 11/05/19 21:01 88 17 11/05/19 21:00 87 19 11/05/19 20:50 88 14 97 11/05/19 20:40 84 12 97 11/05/19 20:30 82 16 97 11/05/19 20:20 88 15 96 11/05/19 20:10 87 18 97 11/05/19 20:01 88 20 97 11/05/19 20:00 87 20 190/84 H 97 11/05/19 19:50 89 19 97 PG Care Time/CCT Total # of Minutes Spent Total Time Spent with Patient: Total time spent is greater than 50% in coordination of care (as documented) at patient's floor/unit and/or counseling patient: (1) Hypertension Hypertension type: unspecified Qualified Code(s): I10 - Essential (primary) hypertension
[2019-11-06 08:05] LABS: Albumin Globulin Ratio 0.9 (0.9-2); Albumin Level 2.8 gm/dl (3.4-5.0); BUN Creatinine Ratio 17.6 (10-20); Bilirubin,Total 0.5 mg/dl (0.2-1); Creatinine Clr Calc Pharmacy 13.5 ml/min; Est GFR (African American) 14.6; Est GFR (Non-African American) 12.6; Potassium 4.2 mmol/L (3.5-5.1); Total Protein 5.8 gm/dl (6.4-8.2)
[2019-11-06 08:06] LABS: Estimated Average Glucose 134 mg/dl; Hemoglobin A1C 6.3 % (4.5-5.6)
[2019-11-06] MEDS: HEPARIN SOD 5,000 UNIT/0.5 ML VIAL SQ SCH ×2 (09:39→20:33)
[2019-11-06] MEDS: SODIUM CHLORIDE 0.9% 1000ML 1,000 ML IV SCH ×2 (09:42→19:47)
[2019-11-06] MEDS: HydrALAZINE TAB 50 MG TAB PO SCH ×2 (09:43→20:37)
[2019-11-06] MEDS: LORATADINE 10 MG TAB PO SCH (09:43)
[2019-11-06] MEDS: CLOPIDOGREL BISULFATE 75 MG TAB PO SCH (09:44)
[2019-11-06] MEDS: carvediloL 25 MG TAB PO SCH ×2 (09:44→20:37)
[2019-11-06] MEDS: MULTIVITAMIN TAB PO SCH (09:44)
[2019-11-06] MEDS: ASCORBIC ACID 500 MG TAB PO SCH ×2 (09:44→20:37)
[2019-11-06] MEDS: CHOLECALCIFEROL 1,000 UNITS 25 MCG TAB PO SCH (09:45)
[2019-11-06] MEDS: INSULIN ASPART 100 UNITS/ML 3 ML PEN SC SCH ×4 (10:17→20:36)
[2019-11-06] MEDS ORDERED: DICYCLOMINE HCL 10 MG CAP PO PRN (12:39)
--- NOTE | 2019-11-06 14:30 | Hospitalist Progress Note ---
Date of Service November 06, 2019 Assessment & Plan (1) Acute kidney injury superimposed on chronic kidney disease: - Acute kidney injury -- possibly related to dehydration vs. ATN from IV dye administration. - Creatinine remains elevated at 3.36, will monitor daily; baseline ~1.5-1.9. - U/a was negative. CT A/P showed bilat nephrolithiasis, mod bilat perinephric edema. - Obtain renal artery duplex in setting of atherosclerosis and HTN. - NS at 100 cc/hr. - Holding home ARB. - Nephro consulted, appreciate input. (2) Dehydration: - See above, Cr remains elevated. (3) Essential (primary) hypertension: - BP has been fluctuating during this admission, will monitor. - Renal artery duplex pending to rule out renal artery stenosis. - Continue Coreg 25 mg BID and Hydralazine 100 mg BID. - Holding home ARB; may require prn anti-hypertensives if BP remains elevated >180. (4) Carotid artery disease: - CTA completed prior to admission showed right ICA stenosis 75% left ICA stenosis 30%. - Pt. will need urgent f/u with vascular surgery - discussed with nurse navigator. - Continue Atorvastatin 20 mg qhs, Plavix 75 mg daily and ASA 81 mg (5) Cerebrovascular disease: - Pt. reported feeling "spacey" on day of admission -- possibly related to uremic encephalopathy vs. dehydration vs. neuro event. - Significant carotid artery stenosis - consider imaging of brain for recurrent symptoms. - Symptoms are now improving after hydration. (6) Hyperlipidemia: - Continue Atorvastatin 20 mg daily. (7) Hypothyroidism: - Continue Levothyroxine 25 mcg daily. - Will order TSH in the AM. (8) Pancreatic lesion: - 1.4 cm pancreatic tail lesion noted on CT. - Will need close outpatient follow up. (9) Anemia: - Hgb trending down, likely partially dilutional related to IV fluids. - Follow CBC frequently. (10) Diabetes mellitus, type 2: - Hgb A1C 6.3 - encourage carb consistent diet and weight loss. - SSI coverage with Lantus 20 units qhs. (11) DVT prophylaxis: - Heparin q12hr. Dispo: Med/surg with tele; discharge pending improvement in renal failure. Subjective Pt. is doing well overall. Does c/o diarrhea after eating -- states this has been a chronic problem over last 10-15 years. Has intermittent LLQ abd pain, CT A/P was negative on admission. BP is intermittently high, denies dizziness, headache. Is eating/drinking as tolerated. Review of Systems Review of Systems: All systems reviewed & are unremarkable except as noted in HPI & below Constitutional: + fatigue and + weakness; no fever, no chills and no anorexia Respiratory: no cough, no dyspnea and no dyspnea on exertion Cardiovascular: no chest pain, no palpitations and no edema Gastrointestinal: + abdominal pain and + diarrhea/loose stools; no nausea and no constipation Genitourinary: no difficulty urinating Musculoskeletal: no back pain and no joint pain Integumentary: no non-healing lesions Neurologic: no dizziness Physical Exam Physical Exam: General: Resting comfortably HEENT: NC/AT; PERRLA with EOMI; [place] conjunctiva, MMM. No erythema of posterior pharynx Neck: Supple and nontender Cardiac: RRR Lungs: CTA bilaterally Abdomen: Bowel normoactive X 4; Nontender to palpation Extremities: Warm. No edema present Neuro: No focal weakness Skin: No rash Results & Data Vital Signs (Past 12 Hours) Vital Signs Temp Pulse Pulse Resp BP Pulse Ox 11/06/19 12:26 36.9 C 77 19 174/75 H 96 11/06/19 08:00 84 11/06/19 07:30 37.2 C 81 19 134/72 98 11/06/19 04:09 36.8 C 88 18 111/64 97 Laboratory Results 11/06/19 11/06/19 11/06/19 Range/Units 12:06 07:56 06:47 WBC (4.8-10.8) K/uL RBC (4.2-5.4) M/uL Hgb (12.0-16.0) g/dL Hct (37-47) % MCV (80-100) fL MCH (25-34) pg MCHC (32-36) g/dL RDW Std Deviation (36.4-46.3) fL RDW Coeff of Yesica (11.5-14.5) % Plt Count (130-400) K/uL MPV (7.4-10.4) fL Immature Gran % (Auto) % Neut % (Auto) % Lymph % (Auto) % [place] % (Auto) % Eos % (Auto) % Baso % (Auto) % Immature Gran # (Auto) (0.00-0.02) K/uL Neut # (Auto) (1.4-6.5) K/uL Lymph # (Auto) (1.2-3.4) K/uL [place] # (Auto) (0.11-0.59) K/uL Eos # (Auto) (0-0.5) K/uL Baso # (Auto) (0-0.2) K/uL Sodium (136-145) mmol/L Potassium (3.5-5.1) mmol/L Chloride (98-107) mmol/L Carbon Dioxide (21-32) mmol/L Anion Gap (3-11) BUN (7-18) mg/dl Creatinine (0.6-1.2) mg/dl Est Cr Clr Drug Dosing ml/min Est GFR ( Amer) Est GFR (Non-Af Amer) BUN/Creatinine Ratio (10-20) Glucose (70-99) mg/dl POC Glucose 264 H 158 H (70-99) Estimat Average Glucose 134 mg/dl Hemoglobin A1c 6.3 H (4.5-5.6) % Calcium (8.5-10.1) mg/dl Phosphorus (2.5-4.9) mg/dl Magnesium (1.8-2.4) mg/dl Total Bilirubin (0.2-1) mg/dl AST (15-37) U/L ALT (12-78) U/L Alkaline Phosphatase (45-117) U/L Troponin I (0-0.045) ng/ml Total Protein (6.4-8.2) gm/dl Albumin (3.4-5.0) gm/dl Globulin (2.5-4.0) gm/dl Albumin/Globulin Ratio (0.9-2) Lipase (73-393) U/L TSH (0.300-4.500) uIu/ml Specimen Hemolysis Urine Color Urine Appearance (Clear) Urine pH (4.5-7.5) Ur Specific [place] (1.000-1.030) Urine Protein (Negative) Urine Glucose (UA) (Negative) Urine Ketones (Negative) Urine Blood (Negative) Urine Nitrite (Negative) Urine Bilirubin (Negative) Urine Urobilinogen (Negative) Ur Leukocyte Esterase (Negative) Urine WBC (Auto) (0-5) /hpf Urine RBC (Auto) (0-4) /hpf U Hyaline Cast (Auto) (0-5) /lpf U Epithel Cells (Auto) (0-5) /lpf Urine Bacteria (Auto) (Negative) 11/06/19 11/06/19 11/05/19 Range/Units 06:47 06:47 16:21 WBC 6.81 (4.8-10.8) K/uL RBC 2.80 L (4.2-5.4) M/uL Hgb 9.6 L (12.0-16.0) g/dL Hct 27.9 L (37-47) % MCV 99.6 (80-100) fL MCH 34.3 H (25-34) pg MCHC 34.4 (32-36) g/dL RDW Std Deviation 45.5 (36.4-46.3) fL RDW Coeff of Yesica 12.4 (11.5-14.5) % Plt Count 123 L (130-400) K/uL MPV 9.3 (7.4-10.4) fL Immature Gran % (Auto) 0.1 % Neut % (Auto) 67.1 % Lymph % (Auto) 18.6 % [place] % (Auto) 12.0 % Eos % (Auto) 2.1 % Baso % (Auto) 0.1 % Immature Gran # (Auto) 0.01 (0.00-0.02) K/uL Neut # (Auto) 4.56 (1.4-6.5) K/uL Lymph # (Auto) 1.27 (1.2-3.4) K/uL [place] # (Auto) 0.82 H (0.11-0.59) K/uL Eos # (Auto) 0.14 (0-0.5) K/uL Baso # (Auto) 0.01 (0-0.2) K/uL Sodium 137 (136-145) mmol/L Potassium 4.2 (3.5-5.1) mmol/L Chloride 107 (98-107) mmol/L Carbon Dioxide 23 (21-32) mmol/L Anion Gap 7.0 (3-11) BUN 59 H (7-18) mg/dl Creatinine 3.36 H (0.6-1.2) mg/dl Est Cr Clr Drug Dosing 13.5 ml/min Est GFR ( Amer) 14.6 Est GFR (Non-Af Amer) 12.6 BUN/Creatinine Ratio 17.6 (10-20) Glucose 134 H (70-99) mg/dl POC Glucose (70-99) Estimat Average Glucose mg/dl Hemoglobin A1c (4.5-5.6) % Calcium 8.0 L D (8.5-10.1) mg/dl Phosphorus (2.5-4.9) mg/dl Magnesium (1.8-2.4) mg/dl Total Bilirubin 0.5 (0.2-1) mg/dl AST 11 L (15-37) U/L ALT 16 (12-78) U/L Alkaline Phosphatase 48 (45-117) U/L Troponin I (0-0.045) ng/ml Total Protein 5.8 L D (6.4-8.2) gm/dl Albumin 2.8 L (3.4-5.0) gm/dl Globulin 3.0 (2.5-4.0) gm/dl Albumin/Globulin Ratio 0.9 (0.9-2) Lipase (73-393) U/L TSH (0.300-4.500) uIu/ml Specimen Hemolysis Urine Color Dark Yellow Urine Appearance Cloudy A (Clear) Urine pH 5.0 (4.5-7.5) Ur Specific [place] 1.020 (1.000-1.030) Urine Protein 1+ H (Negative) Urine Glucose (UA) Negative (Negative) Urine Ketones Negative (Negative) Urine Blood Negative (Negative) Urine Nitrite Negative (Negative) Urine Bilirubin Negative (Negative) Urine Urobilinogen Negative (Negative) Ur Leukocyte Esterase Negative (Negative) Urine WBC (Auto) 1-5 (0-5) /hpf Urine RBC (Auto) 0-4 (0-4) /hpf U Hyaline Cast (Auto) 1-5 (0-5) /lpf U Epithel Cells (Auto) >30 H (0-5) /lpf Urine Bacteria (Auto) Negative (Negative) 11/05/19 11/05/19 Range/Units 16:16 16:16 WBC 7.90 (4.8-10.8) K/uL RBC 3.17 L (4.2-5.4) M/uL Hgb 10.9 L (12.0-16.0) g/dL Hct 31.6 L (37-47) % MCV 99.7 (80-100) fL MCH 34.4 H (25-34) pg MCHC 34.5 (32-36) g/dL RDW Std Deviation 45.0 (36.4-46.3) fL RDW Coeff of Yesica 12.3 (11.5-14.5) % Plt Count 152 (130-400) K/uL MPV 9.5 (7.4-10.4) fL Immature Gran % (Auto) 0.1 % Neut % (Auto) 73.7 % Lymph % (Auto) 15.7 % [place] % (Auto) 9.1 % Eos % (Auto) 1.1 % Baso % (Auto) 0.3 % Immature Gran # (Auto) 0.01 (0.00-0.02) K/uL Neut # (Auto) 5.82 (1.4-6.5) K/uL Lymph # (Auto) 1.24 (1.2-3.4) K/uL [place] # (Auto) 0.72 H (0.11-0.59) K/uL Eos # (Auto) 0.09 (0-0.5) K/uL Baso # (Auto) 0.02 (0-0.2) K/uL Sodium 134 L (136-145) mmol/L Potassium 4.9 (3.5-5.1) mmol/L Chloride 102 (98-107) mmol/L Carbon Dioxide 24 (21-32) mmol/L Anion Gap 8.0 (3-11) BUN 58 H D (7-18) mg/dl Creatinine 3.31 H D (0.6-1.2) mg/dl Est Cr Clr Drug Dosing 13.6 ml/min Est GFR ( Amer) 14.9 Est GFR (Non-Af Amer) 12.9 BUN/Creatinine Ratio 17.5 (10-20) Glucose 115 H (70-99) mg/dl POC Glucose (70-99) Estimat Average Glucose mg/dl Hemoglobin A1c (4.5-5.6) % Calcium 9.5 (8.5-10.1) mg/dl Phosphorus 4.5 (2.5-4.9) mg/dl Magnesium 2.2 (1.8-2.4) mg/dl Total Bilirubin 0.7 (0.2-1) mg/dl AST 23 (15-37) U/L ALT 22 (12-78) U/L Alkaline Phosphatase 56 (45-117) U/L Troponin I < 0.015 (0-0.045) ng/ml Total Protein 7.3 (6.4-8.2) gm/dl Albumin 3.6 (3.4-5.0) gm/dl Globulin 3.7 (2.5-4.0) gm/dl Albumin/Globulin Ratio 1.0 (0.9-2) Lipase 168 (73-393) U/L TSH 3.870 (0.300-4.500) uIu/ml Specimen Hemolysis Urine Color Urine Appearance (Clear) Urine pH (4.5-7.5) Ur Specific [place] (1.000-1.030) Urine Protein (Negative) Urine Glucose (UA) (Negative) Urine Ketones (Negative) Urine Blood (Negative) Urine Nitrite (Negative) Urine Bilirubin (Negative) Urine Urobilinogen (Negative) Ur Leukocyte Esterase (Negative) Urine WBC (Auto) (0-5) /hpf Urine RBC (Auto) (0-4) /hpf U Hyaline Cast (Auto) (0-5) /lpf U Epithel Cells (Auto) (0-5) /lpf Urine Bacteria (Auto) (Negative) PG Care Time/CCT Total # of Minutes Spent Total Time Spent with Patient: Total time spent is greater than 50% in coordination of care (as documented) at patient's floor/unit and/or counseling patient: (1) Hyperlipidemia Hyperlipidemia type: mixed hyperlipidemia Qualified Code(s): E78.2 - Mixed hyperlipidemia (2) Hypothyroidism Hypothyroidism type: acquired Qualified Code(s): E03.9 - Hypothyroidism, unspecified (3) Carotid artery disease Carotid artery disease type: unspecified Laterality: bilateral Qualified Code(s): I73.9 - Peripheral vascular disease, unspecified
[2019-11-06] MEDS: ASPIRIN 81 MG ECTAB PO SCH (14:37)
--- NOTE | 2019-11-06 14:39 | Ultrasound Report ---
US duplex renal artery CLINICAL HISTORY: 74 years-old Female presenting with Renal artery stenosis. TECHNIQUE: Real-time grayscale and color and spectral Doppler ultrasound imaging of the kidneys was p erformed. COMPARISON: None. FINDINGS: RIGHT: Normal echogenicity with preserved corticomedullary differentiation. Normal cortical thickness. Right kidney measures 9.6 cm. No hydronephrosis. No convincing evidence of calculus or mass. Spectral analysis: Intrarenal resistive indices range from 1.0 to 1.0. Normal intrarenal arterial waveforms. Renal arter y patent with peak systolic velocity 81 cm/s proximally, 35 cm/s in the midportion, and 36 cm/s dista lly. Renal vein patent. LEFT: Normal echogenicity with preserved corticomedullary differentiation. Normal cortical thickness. Left kidney measures 9.6 cm. No hydronephrosis. Subcentimeter lower pole cyst. Spectral analysis: Intrarenal resistive indices range from 1.0 to 1.0. Normal intrarenal arterial waveforms. Renal arter y patent with peak systolic velocity 82 cm/s proximally, 44 cm/s in the midportion, and 62 cm/s dista lly. Renal vein patent. Abdominal aorta: Patent. Peak systolic velocity 81 cm/s. Ratio of right renal artery PSV/aortic PSV: 1.0. Ratio of left renal artery PSV/aortic PSV: 1.0. Bladder: Not interrogated. Other: None. Reference ranges: Normal main renal artery peak systolic velocity less than 180 cm/s. Ratio of renal artery PSV to aort ic PSV less than 3.5 equates to normal or less than 60% stenosis. Only one of the two criteria listed needs to be met for diagnosis. IMPRESSION: 1. No evidence of renal artery stenosis. 2. Elevated intrarenal resistive indices, nonspecific though likely indicative of medical renal dise ase. 3. No hydronephrosis. ACT 112: Negative or not required by law. Electronically signed by: Naveed Martines M.D. 11/06/2019 2:37 PM
[2019-11-06] MEDS: MAGNESIUM OXIDE 400 MG TAB PO SCH (15:39)
[2019-11-06] MEDS ORDERED: HydrALAZINE HCL 20 MG/ML VIAL IV ONE ×2 (18:15→22:16)
[2019-11-06] MEDS: INSULIN GLARGINE SOLOSTAR 100 UNITS/ML 3 ML PEN SQ SCH (20:37)
[2019-11-06] MEDS: ATORVASTATIN 20 MG TAB PO SCH (20:37)
[2019-11-06] MEDS ORDERED: TRAZODONE HCL 50 MG TAB PO PRN (21:29)
[2019-11-06] MEDS: LACTATED RINGER'S 1,000 ML IV SCH (21:49)
--- NOTE | 2019-11-06 22:22 | Communication Note ---
Date of Service: November 06, 2019 S: Pt complaining of nausea and puffiness 2/2 to IV NSS requesting she is changed to LR per prior conversation with DR. Jameson. Nursing alerted me to increa sing BP. I question whether this is 2/2 to volume overload and if the pt is moving towards ARF given her like of UOP despite po and iv hydration. O:Lungs clear, pt appears edematous A/P: -given elevated CR continuing fluid switched to LR per pt request -trazodone 50mg hs prn for insomnia -5 mg IV hydral for HTN, -consider starting amlodipine per nephro recs Marcus Medrano MD PGY 2, FCM This chart was completed utilizing [employer] dictation voice recognition software. Grammatical errors, random word insertions, pronoun errors, and in complete sentences are an occasional consequence of the system. Any questions or concerns about the content, text, or information contained within the body of this dictation should be addressed directly to the physician for clarification. Resident Activity Tracking Resident Involvement: Resident Care Provided Care Provided: Adult Hospital Medicine
[2019-11-07] MEDS ORDERED: HydrALAZINE HCL 20 MG/ML VIAL IV ONE (05:23)
[2019-11-07] MEDS: LACTATED RINGER'S 1,000 ML IV SCH (06:09)
[2019-11-07] MEDS: LEVOTHYROXINE SODIUM 25 MCG TABLET PO SCH (06:10)
[2019-11-07 07:12] LABS: Basophils # (auto) 0.01 K/uL (0-0.2); Basophils % (auto) 0.2 %; Eosinophils # (auto) 0.08 K/uL (0-0.5); Eosinophils % (auto) 1.3 %; Hematocrit (blood only) 28.7 % (37-47); Hemoglobin 9.8 g/dL (12.0-16.0); Immature Granulocytes # (auto) 0.01 K/uL (0.00-0.02); Immature Granulocytes % (auto) 0.2 %; Lymphocytes # (auto) 1.02 K/uL (1.2-3.4); Lymphocytes % (auto) 16.2 %; Mean Corpuscular Hemoglobin 34.1 pg (25-34); Mean Corpuscular Hgb Conc 34.1 g/dL (32-36); Mean Platelet Volume 9.1 fL (7.4-10.4); Monocytes # (auto) 0.56 K/uL (0.11-0.59); Monocytes % (auto) 8.9 %; Neutrophils % (auto) 73.2 %; Platelet Count 131 K/uL (130-400); RDW Coefficient of Variation 12.4 % (11.5-14.5); RDW Standard Deviation 45.6 fL (36.4-46.3); Red Blood Count 2.87 M/uL (4.2-5.4); White Blood Count 6.28 K/uL (4.8-10.8)
[2019-11-07 07:44] LABS: Albumin Level 2.9 gm/dl (3.4-5.0); BUN Creatinine Ratio 17.3 (10-20); Calcium 8.1 mg/dl (8.5-10.1); Creatinine Clr Calc Pharmacy 13.3 ml/min; Est GFR (African American) 14.1; Est GFR (Non-African American) 12.2; Potassium 4.7 mmol/L (3.5-5.1)
[2019-11-07 07:54] LABS: Albumin Globulin Ratio 0.9 (0.9-2); Bilirubin,Total 0.5 mg/dl (0.2-1); Globulin 3.4 gm/dl (2.5-4.0); Thyroid Stimulating Hormone 3.4 uIu/ml (0.300-4.500); Total Protein 6.3 gm/dl (6.4-8.2)
[2019-11-07] MEDS: INSULIN ASPART 100 UNITS/ML 3 ML PEN SC SCH ×4 (08:43→20:38)
[2019-11-07] MEDS: LORATADINE 10 MG TAB PO SCH (08:50)
[2019-11-07] MEDS: HydrALAZINE TAB 50 MG TAB PO SCH ×3 (08:50→20:27)
[2019-11-07] MEDS: carvediloL 25 MG TAB PO SCH ×2 (08:51→20:27)
[2019-11-07] MEDS: MULTIVITAMIN TAB PO SCH (08:51)
[2019-11-07] MEDS: ASPIRIN 81 MG ECTAB PO SCH (08:51)
[2019-11-07] MEDS: CHOLECALCIFEROL 1,000 UNITS 25 MCG TAB PO SCH (08:52)
[2019-11-07] MEDS: ASCORBIC ACID 500 MG TAB PO SCH ×2 (08:52→20:27)
[2019-11-07] MEDS: CLOPIDOGREL BISULFATE 75 MG TAB PO SCH (08:52)
[2019-11-07] MEDS: HEPARIN SOD 5,000 UNIT/0.5 ML VIAL SQ SCH ×2 (08:53→20:38)
[2019-11-07] MEDS ORDERED: AMLODIPINE BESYLATE 5 MG TAB PO SCH (09:00)
--- NOTE | 2019-11-07 10:53 | Hospitalist Progress Note ---
Date of Service November 07, 2019 Assessment & Plan (1) Acute kidney injury superimposed on chronic kidney disease: - Acute kidney injury -- possibly related to dehydration vs. ATN from IV dye administration. - Creatinine remains elevated at 3.4; baseline ~1.5-1.9. Also has associated non anion gap metabolic acidosis - possibly related to NS infusion vs. underlying ARF. - U/a was negative. CT A/P showed bilat nephrolithiasis, mod bilat perinephric edema. - Renal artery duplex was negative. - D/c IV fluids and give Lasix 40 mg PO x 1 dose. - Nephro consulted, appreciate input. - Repeat BMP at 5 pm then q24hr. - Holding home ARB. (2) Edema: - Developed hand/feet edema overnight; pt. requested IV fluid conversion to LR. - Weight gain ~3 kg since admission -- related to continuous IV fluid hydration. Also with net +6,000 since admission. - Most recent echo February 2019 showed preserved EF, no evidence of diastolic dysfunction. - D/c IV fluids and give Lasix 40 mg PO x 1 dose. (3) Essential (primary) hypertension: - BP has been intermittently elevated during this admission. - Renal artery duplex negative for renal artery stenosis. - Continue Coreg 25 mg BID; will increase Hydralazine to 100 mg TID & give Lasix 40 mg PO x 1 dose. - Cannot tolerate Amlodipine - h/o LE edema; also recently on Cartia, now discontinued. - Holding home ARB due to ARF. - Nephro following, appreciate input. (4) Dehydration: - See above, Cr remains elevated. - Has received adequate IV fluid hydration. (5) Carotid artery disease: - CTA completed prior to admission showed right ICA stenosis 75% left ICA stenosis 30%. - Pt. will need urgent f/u with vascular surgery. - Continue Atorvastatin 20 mg qhs, Plavix 75 mg daily and ASA 81 mg (6) Cerebrovascular disease: - Pt. reported feeling "spacey" on day of admission -- possibly related to uremic encephalopathy vs. dehydration vs. neuro event. - Significant carotid artery stenosis - consider imaging of brain for recurrent symptoms. - Symptoms are now improved after hydration. (7) Hyperlipidemia: - Continue Atorvastatin 20 mg daily. (8) Hypothyroidism: - Continue Levothyroxine 25 mcg daily. - TSH is 3.4. (9) Pancreatic lesion: - 1.4 cm pancreatic tail lesion noted on CT. - Will need close outpatient follow up. (10) Anemia: - Hgb below baseline, likely partially dilutional related to IV fluids. - Follow CBC frequently. (11) Diabetes mellitus, type 2: - Hgb A1C 6.3 - encourage carb consistent diet and weight loss. - SSI coverage with Lantus 20 units qhs. (12) DVT prophylaxis: - Heparin q12hr. Dispo: Med/surg with tele; discharge pending improvement in renal failure. Subjective Pt. had swelling in her hands and feet overnight -- requested her IV fluids be switched to LR per previous instructions from Dr. Jameson. Swelling is slightly improved in hands and feet at the moment. She has good urine output. BP has been elevated -- pt. reports this has been an ongoing problem as an outpatient. Hydralazine was recently increased to 100 mg BID with some improvement. History of intolerance to Amlodipine -- LE swelling. Has also recently tried Cartia but is unclear why this medication was discontinued & replaced with Hydralazine. Nephro consulted, appreciate input - has not had any significant improvement in renal failure since admission. Review of Systems Review of Systems: All systems reviewed & are unremarkable except as noted in HPI & below Constitutional: no fever, no chills, no fatigue, no weakness and no anorexia Respiratory: no cough, no dyspnea and no dyspnea on exertion Cardiovascular: + edema; no chest pain and no palpitations Gastrointestinal: no abdominal pain, no nausea and no constipation Genitourinary: no difficulty urinating and no decreased urination Musculoskeletal: no back pain and no joint pain Integumentary: no non-healing lesions Physical Exam Physical Exam: General: Resting comfortably HEENT: NC/AT; PERRLA with EOMI; [place] conjunctiva, MMM. No erythema of posterior pharynx Neck: Supple and nontender Cardiac: RRR Lungs: CTA bilaterally Abdomen: Bowel normoactive X 4; Nontender to palpation Extremities: Warm. Mild non pitting hand edema; +1 bilat ankle pitting edema noted. Neuro: No focal weakness Skin: No rash Results & Data Vital Signs (Past 12 Hours) Vital Signs Temp Pulse Pulse Resp BP BP Pulse Ox 11/07/19 07:00 37.1 C 78 18 158/71 H 94 11/07/19 03:46 37.1 C 76 18 174/76 H 95 01/10/20 23:32 37 C 80 84 18 127/55 L 96 Laboratory Results 11/07/19 11/07/19 11/07/19 Range/Units 07:49 07:01 07:01 WBC 6.28 (4.8-10.8) K/uL RBC 2.87 L (4.2-5.4) M/uL Hgb 9.8 L (12.0-16.0) g/dL Hct 28.7 L (37-47) % MCV 100.0 (80-100) fL MCH 34.1 H (25-34) pg MCHC 34.1 (32-36) g/dL RDW Std Deviation 45.6 (36.4-46.3) fL RDW Coeff of Yesica 12.4 (11.5-14.5) % Plt Count 131 (130-400) K/uL MPV 9.1 (7.4-10.4) fL Immature Gran % (Auto) 0.2 % Neut % (Auto) 73.2 % Lymph % (Auto) 16.2 % [place] % (Auto) 8.9 % Eos % (Auto) 1.3 % Baso % (Auto) 0.2 % Immature Gran # (Auto) 0.01 (0.00-0.02) K/uL Neut # (Auto) 4.60 (1.4-6.5) K/uL Lymph # (Auto) 1.02 L (1.2-3.4) K/uL [place] # (Auto) 0.56 (0.11-0.59) K/uL Eos # (Auto) 0.08 (0-0.5) K/uL Baso # (Auto) 0.01 (0-0.2) K/uL Sodium 135 L (136-145) mmol/L Potassium 4.7 (3.5-5.1) mmol/L Chloride 108 H (98-107) mmol/L Carbon Dioxide 20 L (21-32) mmol/L Anion Gap 7.0 (3-11) BUN 60 H (7-18) mg/dl Creatinine 3.46 H (0.6-1.2) mg/dl Est Cr Clr Drug Dosing 13.3 ml/min Est GFR ( Amer) 14.1 Est GFR (Non-Af Amer) 12.2 BUN/Creatinine Ratio 17.3 (10-20) Glucose 123 H (70-99) mg/dl POC Glucose 158 H (70-99) Calcium 8.1 L (8.5-10.1) mg/dl Total Bilirubin 0.5 (0.2-1) mg/dl AST 16 (15-37) U/L ALT 18 (12-78) U/L Alkaline Phosphatase 47 (45-117) U/L Total Protein 6.3 L (6.4-8.2) gm/dl Albumin 2.9 L (3.4-5.0) gm/dl Globulin 3.4 (2.5-4.0) gm/dl Albumin/Globulin Ratio 0.9 (0.9-2) TSH 3.400 (0.300-4.500) uIu/ml 11/06/19 11/06/19 11/06/19 Range/Units 20:18 16:19 12:06 WBC (4.8-10.8) K/uL RBC (4.2-5.4) M/uL Hgb (12.0-16.0) g/dL Hct (37-47) % MCV (80-100) fL MCH (25-34) pg MCHC (32-36) g/dL RDW Std Deviation (36.4-46.3) fL RDW Coeff of Yesica (11.5-14.5) % Plt Count (130-400) K/uL MPV (7.4-10.4) fL Immature Gran % (Auto) % Neut % (Auto) % Lymph % (Auto) % [place] % (Auto) % Eos % (Auto) % Baso % (Auto) % Immature Gran # (Auto) (0.00-0.02) K/uL Neut # (Auto) (1.4-6.5) K/uL Lymph # (Auto) (1.2-3.4) K/uL [place] # (Auto) (0.11-0.59) K/uL Eos # (Auto) (0-0.5) K/uL Baso # (Auto) (0-0.2) K/uL Sodium (136-145) mmol/L Potassium (3.5-5.1) mmol/L Chloride (98-107) mmol/L Carbon Dioxide (21-32) mmol/L Anion Gap (3-11) BUN (7-18) mg/dl Creatinine (0.6-1.2) mg/dl Est Cr Clr Drug Dosing ml/min Est GFR ( Amer) Est GFR (Non-Af Amer) BUN/Creatinine Ratio (10-20) Glucose (70-99) mg/dl POC Glucose 180 H 192 H 264 H (70-99) Calcium (8.5-10.1) mg/dl Total Bilirubin (0.2-1) mg/dl AST (15-37) U/L ALT (12-78) U/L Alkaline Phosphatase (45-117) U/L Total Protein (6.4-8.2) gm/dl Albumin (3.4-5.0) gm/dl Globulin (2.5-4.0) gm/dl Albumin/Globulin Ratio (0.9-2) TSH (0.300-4.500) uIu/ml PG Care Time/CCT Total # of Minutes Spent Total Time Spent with Patient: Total time spent is greater than 50% in coordination of care (as documented) at patient's floor/unit and/or counseling patient: (1) Hyperlipidemia Hyperlipidemia type: mixed hyperlipidemia Qualified Code(s): E78.2 - Mixed hyperlipidemia (2) Hypothyroidism Hypothyroidism type: acquired Qualified Code(s): E03.9 - Hypothyroidism, unspecified (3) Carotid artery disease Carotid artery disease type: unspecified Laterality: bilateral Qualified Code(s): I73.9 - Peripheral vascular disease, unspecified
[2019-11-07] MEDS ORDERED: FUROSEMIDE 40 MG TAB PO ONE (14:05)
--- NOTE | 2019-11-07 14:26 | Nephrology Progress Note ---
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 Alyx feels reasonably well today. Reports mild lower abdominal discomfort. She also feels puffy. Alyx notes that she can see fluid retention in her legs and arms. Review of Systems Review of Systems: All systems reviewed & are unremarkable except as noted in HPI & below Physical Exam Constitutional: well developed; no acute distress Eyes: no scleral abnormality and no corneal abnormality ENMT: Mouth: no oral mucosal abnormality and oral mucous membranes not dry Neck: normal visual inspection, trachea midline and + thick neck Respiratory: normal respiratory effort Auscultation: lungs clear to auscultation bilaterally Cardiovascular: Rate/Rhythm: regular rate Heart Sounds: normal S1 and normal S2 Extremities: no edema Gastrointestinal (Abdomen): Percussion/Palpation: abdomen soft; abdomen nontender Musculoskeletal: Extremities: no cyanosis and no clubbing Skin: normal turgor; no lesions Neurologic: Motor/Sensory: no tremor and no asterixis Psychiatric: Orientation: alert and oriented x 3 Results & Data Vital Signs (Past 12 Hours) Vital Signs Temp Pulse Pulse Resp BP Pulse Ox 11/07/19 12:46 37 C 76 19 179/79 H 97 11/07/19 08:00 79 11/07/19 07:00 37.1 C 78 18 158/71 H 94 11/07/19 03:46 37.1 C 76 18 174/76 H 95 Laboratory Results Laboratory Results - last 24 hr 11/06/19 11/06/19 11/07/19 16:19 20:18 07:01 WBC 6.28 RBC 2.87 L Hgb 9.8 L Hct 28.7 L MCV 100.0 MCH 34.1 H MCHC 34.1 RDW Std Deviation 45.6 RDW Coeff of Yesica 12.4 Plt Count 131 MPV 9.1 Immature Gran % (Auto) 0.2 Neut % (Auto) 73.2 Lymph % (Auto) 16.2 [place] % (Auto) 8.9 Eos % (Auto) 1.3 Baso % (Auto) 0.2 Immature Gran # (Auto) 0.01 Neut # (Auto) 4.60 Lymph # (Auto) 1.02 L [place] # (Auto) 0.56 Eos # (Auto) 0.08 Baso # (Auto) 0.01 Sodium Potassium Chloride Carbon Dioxide Anion Gap BUN Creatinine Est Cr Clr Drug Dosing Est GFR ( Amer) Est GFR (Non-Af Amer) BUN/Creatinine Ratio Glucose POC Glucose 192 H 180 H Calcium Total Bilirubin AST ALT Alkaline Phosphatase Total Protein Albumin Globulin Albumin/Globulin Ratio TSH 11/07/19 11/07/19 11/07/19 07:01 07:49 11:46 WBC RBC Hgb Hct MCV MCH MCHC RDW Std Deviation RDW Coeff of Yesica Plt Count MPV Immature Gran % (Auto) Neut % (Auto) Lymph % (Auto) [place] % (Auto) Eos % (Auto) Baso % (Auto) Immature Gran # (Auto) Neut # (Auto) Lymph # (Auto) [place] # (Auto) Eos # (Auto) Baso # (Auto) Sodium 135 L Potassium 4.7 Chloride 108 H Carbon Dioxide 20 L Anion Gap 7.0 BUN 60 H Creatinine 3.46 H Est Cr Clr Drug Dosing 13.3 Est GFR ( Amer) 14.1 Est GFR (Non-Af Amer) 12.2 BUN/Creatinine Ratio 17.3 Glucose 123 H POC Glucose 158 H 266 H Calcium 8.1 L Total Bilirubin 0.5 AST 16 ALT 18 Alkaline Phosphatase 47 Total Protein 6.3 L Albumin 2.9 L Globulin 3.4 Albumin/Globulin Ratio 0.9 TSH 3.400 PG Care Time/CCT Total # of Minutes Spent Total Time Spent with Patient: Total time spent is greater than 50% in coordination of care (as documented) at patient's floor/unit and/or counseling patient: (1) Hypertension Hypertension type: unspecified Qualified Code(s): I10 - Essential (primary) hypertension
[2019-11-07 17:29] LABS: BUN Creatinine Ratio 19.4 (10-20); Creatinine Clr Calc Pharmacy 14.2 ml/min; Est GFR (African American) 15.4; Est GFR (Non-African American) 13.3; Potassium 4.5 mmol/L (3.5-5.1)
[2019-11-07] MEDS: MAGNESIUM OXIDE 400 MG TAB PO SCH (17:59)
[2019-11-07] MEDS: ATORVASTATIN 20 MG TAB PO SCH (20:28)
[2019-11-07] MEDS: INSULIN GLARGINE SOLOSTAR 100 UNITS/ML 3 ML PEN SQ SCH (20:37)
[2019-11-08] MEDS: LEVOTHYROXINE SODIUM 25 MCG TABLET PO SCH (06:31)
[2019-11-08 06:32] LABS: Eosinophils # (auto) 0.12 K/uL (0-0.5); Eosinophils % (auto) 1.9 %; Hemoglobin 9.3 g/dL (12.0-16.0); Immature Granulocytes # (auto) 0.02 K/uL (0.00-0.02); Immature Granulocytes % (auto) 0.3 %; Lymphocytes # (auto) 1.08 K/uL (1.2-3.4); Lymphocytes % (auto) 17.1 %; Mean Corpuscular Hemoglobin 34.2 pg (25-34); Mean Corpuscular Hgb Conc 34.4 g/dL (32-36); Mean Corpuscular Volume 99.3 fL (80-100); Mean Platelet Volume 9.4 fL (7.4-10.4); Monocytes # (auto) 0.53 K/uL (0.11-0.59); Monocytes % (auto) 8.4 %; Neutrophils # (auto) 4.56 K/uL (1.4-6.5); Neutrophils % (auto) 72.3 %; Platelet Count 126 K/uL (130-400); RDW Coefficient of Variation 12.5 % (11.5-14.5); RDW Standard Deviation 44.9 fL (36.4-46.3); Red Blood Count 2.72 M/uL (4.2-5.4); White Blood Count 6.31 K/uL (4.8-10.8)
[2019-11-08 07:10] LABS: Albumin Level 2.8 gm/dl (3.4-5.0); BUN Creatinine Ratio 21.2 (10-20); Calcium 8.8 mg/dl (8.5-10.1); Creatinine Clr Calc Pharmacy 16.3 ml/min; Est GFR (Non-African American) 15.5; Potassium 4.1 mmol/L (3.5-5.1)
[2019-11-08 07:13] LABS: Albumin Globulin Ratio 0.8 (0.9-2); Bilirubin,Total 0.8 mg/dl (0.2-1); Globulin 3.5 gm/dl (2.5-4.0); Total Protein 6.3 gm/dl (6.4-8.2)
[2019-11-08] MEDS: INSULIN ASPART 100 UNITS/ML 3 ML PEN SC SCH ×4 (08:51→20:53)
[2019-11-08] MEDS: LORATADINE 10 MG TAB PO SCH (09:06)
[2019-11-08] MEDS: HydrALAZINE TAB 50 MG TAB PO SCH (09:06)
[2019-11-08] MEDS: carvediloL 25 MG TAB PO SCH ×2 (09:07→20:47)
[2019-11-08] MEDS: ASPIRIN 81 MG ECTAB PO SCH (09:07)
[2019-11-08] MEDS: FUROSEMIDE 40 MG TAB PO SCH (09:07)
[2019-11-08] MEDS: MULTIVITAMIN TAB PO SCH (09:08)
[2019-11-08] MEDS: CLOPIDOGREL BISULFATE 75 MG TAB PO SCH (09:08)
[2019-11-08] MEDS: CHOLECALCIFEROL 1,000 UNITS 25 MCG TAB PO SCH (09:09)
[2019-11-08] MEDS: ASCORBIC ACID 500 MG TAB PO SCH ×2 (09:09→20:50)
[2019-11-08] MEDS: HEPARIN SOD 5,000 UNIT/0.5 ML VIAL SQ SCH ×2 (09:11→20:51)
--- NOTE | 2019-11-08 10:41 | Hospitalist Progress Note ---
Date of Service November 08, 2019 Assessment & Plan (1) Acute kidney injury superimposed on chronic kidney disease: - Acute kidney injury -- possibly related to ATN from IV dye administration. - Creatinine is slowly improving, was 2.8 this morning; baseline ~1.5-1.9. Non anion gap metabolic acidosis also resolving (was likely related to NS infusion) - U/a was negative. CT A/P showed bilat nephrolithiasis, mod bilat perinephric edema. - Renal artery duplex was negative. - Not currently on IV fluids; Lasix 40 mg PO daily for volume overload. - Nephro consulted, appreciate input. - Monitor BMP daily. - Holding home ARB - will need to resume once Cr is close to baseline due to uncontrolled HTN. (2) Edema: - Developed hand/feet edema; edema now improving after Lasix. - Weight gain ~3 kg, net +6,000 following admission -- related to continuous IV fluid hydration. - Most recent echo February 2019 showed preserved EF, no evidence of diastolic dysfunction. - Started Lasix 40 mg PO daily. (3) Essential (primary) hypertension: - BP has been elevated during this admission - related to IV fluids and holding home ARB. - Renal artery duplex negative for renal artery stenosis. - Continue Coreg 25 mg BID; increased Hydralazine to 100 mg TID & started Lasix 40 mg PO daily. - Cannot tolerate Amlodipine - h/o LE edema; will start Nifedipine 30 mg daily per nephro. - Hold home ARB due to ARF - will need to resume once Cr is close to baseline. - Nephro following, appreciate input. (4) Dehydration: - See above, Cr remains elevated. - Dehydration now resolved. (5) Carotid artery disease: - CTA completed prior to admission showed right ICA stenosis 75% left ICA stenosis 30%. - Pt. will need urgent f/u with vascular surgery. - Continue Atorvastatin 20 mg qhs, Plavix 75 mg daily and ASA 81 mg (6) Cerebrovascular disease: - Pt. reported feeling "spacey" on day of admission -- possibly related to uremic encephalopathy vs. dehydration vs. neuro event. - Significant carotid artery stenosis - consider imaging of brain for recurrent symptoms. - Symptoms are now resolved. (7) Hyperlipidemia: - Continue Atorvastatin 20 mg daily. (8) Hypothyroidism: - Continue Levothyroxine 25 mcg daily. - TSH is 3.4. (9) Pancreatic lesion: - 1.4 cm pancreatic tail lesion noted on CT. - Will need close outpatient follow up. (10) Anemia: - Hgb below baseline, likely partially dilutional related to IV fluids. - Ferritin and Transferrin pending. - Follow CBC frequently. (11) Diabetes mellitus, type 2: - Hgb A1C 6.3 - encourage carb consistent diet and weight loss. - SSI coverage with Lantus 20 units qhs. (12) DVT prophylaxis: - Heparin q12hr. Dispo: Med/surg with tele; discharge pending improvement in renal failure & HTN, likely over next 24 hours. Subjective Pt. reports swelling in hands/legs improved. She is eating/drinking, urinating often. Has diarrhea after meals -- chronic issue for her. Creatinine is trending down, nephro following. BP remains elevated despite additional dose of Hydralazine and Lasix. Review of Systems Review of Systems: All systems reviewed & are unremarkable except as noted in HPI & below Constitutional: + fatigue and + weakness; no fever, no chills and no anorexia Respiratory: no cough, no dyspnea and no dyspnea on exertion Cardiovascular: + edema; no chest pain and no palpitations Gastrointestinal: + diarrhea/loose stools; no abdominal pain, no nausea and no constipation Genitourinary: no difficulty urinating Musculoskeletal: no back pain and no joint pain Integumentary: no non-healing lesions Physical Exam Physical Exam: General: Resting comfortably HEENT: NC/AT; PERRLA with EOMI; [place] conjunctiva, MMM. No erythema of posterior pharynx Neck: Supple and nontender Cardiac: RRR Lungs: CTA bilaterally Abdomen: Bowel normoactive X 4; Nontender to palpation Extremities: Warm. No hand edema noted. Mild +1 non pitting LE ankle edema, improving overall. Neuro: No focal weakness Skin: No rash Results & Data Vital Signs (Past 12 Hours) Vital Signs Temp Pulse Pulse Resp BP BP Pulse Ox 11/08/19 08:34 37.6 C H 81 18 152/69 H 96 11/08/19 04:05 83 18 156/8 H 97 11/08/19 00:49 80 11/07/19 22:40 11/07/19 22:35 36.3 C L 78 16 170/72 H 95 Pulse Ox 11/08/19 08:34 11/08/19 04:05 11/08/19 00:49 11/07/19 22:40 95 11/07/19 22:35 Laboratory Results 11/08/19 11/08/19 11/08/19 Range/Units 08:02 05:56 05:56 WBC 6.31 (4.8-10.8) K/uL RBC 2.72 L (4.2-5.4) M/uL Hgb 9.3 L (12.0-16.0) g/dL Hct 27.0 L (37-47) % MCV 99.3 (80-100) fL MCH 34.2 H (25-34) pg MCHC 34.4 (32-36) g/dL RDW Std Deviation 44.9 (36.4-46.3) fL RDW Coeff of Yesica 12.5 (11.5-14.5) % Plt Count 126 L (130-400) K/uL MPV 9.4 (7.4-10.4) fL Immature Gran % (Auto) 0.3 % Neut % (Auto) 72.3 % Lymph % (Auto) 17.1 % [place] % (Auto) 8.4 % Eos % (Auto) 1.9 % Baso % (Auto) 0.0 % Immature Gran # (Auto) 0.02 (0.00-0.02) K/uL Neut # (Auto) 4.56 (1.4-6.5) K/uL Lymph # (Auto) 1.08 L (1.2-3.4) K/uL [place] # (Auto) 0.53 (0.11-0.59) K/uL Eos # (Auto) 0.12 (0-0.5) K/uL Baso # (Auto) 0.00 (0-0.2) K/uL Sodium 137 (136-145) mmol/L Potassium 4.1 (3.5-5.1) mmol/L Chloride 108 H (98-107) mmol/L Carbon Dioxide 22 (21-32) mmol/L Anion Gap 7.0 (3-11) BUN 60 H (7-18) mg/dl Creatinine 2.83 H D (0.6-1.2) mg/dl Est Cr Clr Drug Dosing 16.3 ml/min Est GFR ( Amer) 18.0 Est GFR (Non-Af Amer) 15.5 BUN/Creatinine Ratio 21.2 H (10-20) Glucose 108 H (70-99) mg/dl POC Glucose 128 H (70-99) Calcium 8.8 (8.5-10.1) mg/dl Total Bilirubin 0.8 (0.2-1) mg/dl AST 14 L (15-37) U/L ALT 15 (12-78) U/L Alkaline Phosphatase 45 (45-117) U/L Total Protein 6.3 L (6.4-8.2) gm/dl Albumin 2.8 L (3.4-5.0) gm/dl Globulin 3.5 (2.5-4.0) gm/dl Albumin/Globulin Ratio 0.8 L (0.9-2) Specimen Hemolysis 11/07/19 11/07/19 11/07/19 Range/Units 20:31 16:59 16:59 WBC (4.8-10.8) K/uL RBC (4.2-5.4) M/uL Hgb (12.0-16.0) g/dL Hct (37-47) % MCV (80-100) fL MCH (25-34) pg MCHC (32-36) g/dL RDW Std Deviation (36.4-46.3) fL RDW Coeff of Yesica (11.5-14.5) % Plt Count (130-400) K/uL MPV (7.4-10.4) fL Immature Gran % (Auto) % Neut % (Auto) % Lymph % (Auto) % [place] % (Auto) % Eos % (Auto) % Baso % (Auto) % Immature Gran # (Auto) (0.00-0.02) K/uL Neut # (Auto) (1.4-6.5) K/uL Lymph # (Auto) (1.2-3.4) K/uL [place] # (Auto) (0.11-0.59) K/uL Eos # (Auto) (0-0.5) K/uL Baso # (Auto) (0-0.2) K/uL Sodium 136 (136-145) mmol/L Potassium 4.5 (3.5-5.1) mmol/L Chloride 107 (98-107) mmol/L Carbon Dioxide 22 (21-32) mmol/L Anion Gap 7.0 (3-11) BUN 63 H (7-18) mg/dl Creatinine 3.23 H (0.6-1.2) mg/dl Est Cr Clr Drug Dosing 14.2 ml/min Est GFR ( Amer) 15.4 Est GFR (Non-Af Amer) 13.3 BUN/Creatinine Ratio 19.4 (10-20) Glucose 108 H (70-99) mg/dl POC Glucose 124 H 135 H (70-99) Calcium 9.0 (8.5-10.1) mg/dl Total Bilirubin (0.2-1) mg/dl AST (15-37) U/L ALT (12-78) U/L Alkaline Phosphatase (45-117) U/L Total Protein (6.4-8.2) gm/dl Albumin (3.4-5.0) gm/dl Globulin (2.5-4.0) gm/dl Albumin/Globulin Ratio (0.9-2) Specimen Hemolysis 11/07/19 Range/Units 11:46 WBC (4.8-10.8) K/uL RBC (4.2-5.4) M/uL Hgb (12.0-16.0) g/dL Hct (37-47) % MCV (80-100) fL MCH (25-34) pg MCHC (32-36) g/dL RDW Std Deviation (36.4-46.3) fL RDW Coeff of Yesica (11.5-14.5) % Plt Count (130-400) K/uL MPV (7.4-10.4) fL Immature Gran % (Auto) % Neut % (Auto) % Lymph % (Auto) % [place] % (Auto) % Eos % (Auto) % Baso % (Auto) % Immature Gran # (Auto) (0.00-0.02) K/uL Neut # (Auto) (1.4-6.5) K/uL Lymph # (Auto) (1.2-3.4) K/uL [place] # (Auto) (0.11-0.59) K/uL Eos # (Auto) (0-0.5) K/uL Baso # (Auto) (0-0.2) K/uL Sodium (136-145) mmol/L Potassium (3.5-5.1) mmol/L Chloride (98-107) mmol/L Carbon Dioxide (21-32) mmol/L Anion Gap (3-11) BUN (7-18) mg/dl Creatinine (0.6-1.2) mg/dl Est Cr Clr Drug Dosing ml/min Est GFR ( Amer) Est GFR (Non-Af Amer) BUN/Creatinine Ratio (10-20) Glucose (70-99) mg/dl POC Glucose 266 H (70-99) Calcium (8.5-10.1) mg/dl Total Bilirubin (0.2-1) mg/dl AST (15-37) U/L ALT (12-78) U/L Alkaline Phosphatase (45-117) U/L Total Protein (6.4-8.2) gm/dl Albumin (3.4-5.0) gm/dl Globulin (2.5-4.0) gm/dl Albumin/Globulin Ratio (0.9-2) Specimen Hemolysis PG Care Time/CCT Total # of Minutes Spent Total Time Spent with Patient: Total time spent is greater than 50% in coordi nation of care (as documented) at patient's floor/unit and/or counseling patient: (1) Hyperlipidemia Hyperlipidemia type: mixed hyperlipidemia Qualified Code(s): E78.2 - Mixed hyperlipidemia (2) Hypothyroidism Hypothyroidism type: acquired Qualified Code(s): E03.9 - Hypothyroidism, unspecified (3) Carotid artery disease Carotid artery disease type: unspecified Laterality: bilateral Qualified Code(s): I73.9 - Peripheral vascular disease, unspecified
--- NOTE | 2019-11-08 11:02 | Nephrology Progress Note ---
Date of Service November 08, 2019 Assessment & Plan (1) Acute kidney injury superimposed on chronic kidney disease: -- CKD III with a baseline creatinine of 1.5-2.0 mg/dL -- CKD attributed to diabetic nephropathy qand hypertensive nephrosclerosis -- Duplex did not demonstrate NICK -- DHRUV consistent with KIMANI or ATN -- Creatinine improving suggesting renal recovery -- Non-oliguric -- BP acceptable at this time -- Continue furosemide to maintain a slightly negative fluid balance -- Continue hydralazine 100 mg TID -- Will continue to hold Losartan for now but suspect that we could safely restart as kidney function improves -- Continue to document I/O's -- If BP reasonably well controlled today, we should be able to safely discharge home from a renal standpoint -- I can arrange outpatient follow up with me in the nephrology clinic for next week (2) Hypertension: -- As noted above Subjective No acute events overnight. Alyx feels well today. Ambulating in [place]. She denies any lightheadedness or dizziness. Signs of fluid retention have improved. Review of Systems Review of Systems: All systems reviewed & are unremarkable except as noted in HPI & below Physical Exam Constitutional: well developed; no acute distress Eyes: no scleral abnormality and no corneal abnormality ENMT: Mouth: no oral mucosal abnormality and oral mucous membranes not dry Neck: normal visual inspection, trachea midline and + thick neck Respiratory: normal respiratory effort Auscultation: lungs clear to auscultation bilaterally Cardiovascular: Rate/Rhythm: regular rate Heart Sounds: normal S1 and normal S2 Extremities: no edema Gastrointestinal (Abdomen): Percussion/Palpation: abdomen soft; abdomen nontender Musculoskeletal: Extremities: no cyanosis and no clubbing Skin: normal turgor; no lesions Neurologic: Motor/Sensory: no tremor and no asterixis Psychiatric: Orientation: alert and oriented x 3 Results & Data Vital Signs (Past 12 Hours) Vital Signs Temp Pulse Pulse Resp BP Pulse Ox 11/08/19 08:34 37.6 C H 81 18 152/69 H 96 11/08/19 04:05 83 18 156/8 H 97 11/08/19 00:49 80 Laboratory Results Laboratory Results - last 24 hr 11/07/19 11/07/19 11/07/19 11:46 16:59 16:59 WBC RBC Hgb Hct MCV MCH MCHC RDW Std Deviation RDW Coeff of Yesica Plt Count MPV Immature Gran % (Auto) Neut % (Auto) Lymph % (Auto) [place] % (Auto) Eos % (Auto) Baso % (Auto) Immature Gran # (Auto) Neut # (Auto) Lymph # (Auto) [place] # (Auto) Eos # (Auto) Baso # (Auto) Sodium 136 Potassium 4.5 Chloride 107 Carbon Dioxide 22 Anion Gap 7.0 BUN 63 H Creatinine 3.23 H Est Cr Clr Drug Dosing 14.2 Est GFR ( Amer) 15.4 Est GFR (Non-Af Amer) 13.3 BUN/Creatinine Ratio 19.4 Glucose 108 H POC Glucose 266 H 135 H Calcium 9.0 Total Bilirubin AST ALT Alkaline Phosphatase Total Protein Albumin Globulin Albumin/Globulin Ratio Specimen Hemolysis 11/07/19 11/08/19 11/08/19 20:31 05:56 05:56 WBC 6.31 RBC 2.72 L Hgb 9.3 L Hct 27.0 L MCV 99.3 MCH 34.2 H MCHC 34.4 RDW Std Deviation 44.9 RDW Coeff of Yesica 12.5 Plt Count 126 L MPV 9.4 Immature Gran % (Auto) 0.3 Neut % (Auto) 72.3 Lymph % (Auto) 17.1 [place] % (Auto) 8.4 Eos % (Auto) 1.9 Baso % (Auto) 0.0 Immature Gran # (Auto) 0.02 Neut # (Auto) 4.56 Lymph # (Auto) 1.08 L [place] # (Auto) 0.53 Eos # (Auto) 0.12 Baso # (Auto) 0.00 Sodium 137 Potassium 4.1 Chloride 108 H Carbon Dioxide 22 Anion Gap 7.0 BUN 60 H Creatinine 2.83 H D Est Cr Clr Drug Dosing 16.3 Est GFR ( Amer) 18.0 Est GFR (Non-Af Amer) 15.5 BUN/Creatinine Ratio 21.2 H Glucose 108 H POC Glucose 124 H Calcium 8.8 Total Bilirubin 0.8 AST 14 L ALT 15 Alkaline Phosphatase 45 Total Protein 6.3 L Albumin 2.8 L Globulin 3.5 Albumin/Globulin Ratio 0.8 L Specimen Hemolysis 11/08/19 08:02 WBC RBC Hgb Hct MCV MCH MCHC RDW Std Deviation RDW Coeff of Yesica Plt Count MPV Immature Gran % (Auto) Neut % (Auto) Lymph % (Auto) [place] % (Auto) Eos % (Auto) Baso % (Auto) Immature Gran # (Auto) Neut # (Auto) Lymph # (Auto) [place] # (Auto) Eos # (Auto) Baso # (Auto) Sodium Potassium Chloride Carbon Dioxide Anion Gap BUN Creatinine Est Cr Clr Drug Dosing Est GFR ( Amer) Est GFR (Non-Af Amer) BUN/Creatinine Ratio Glucose POC Glucose 128 H Calcium Total Bilirubin AST ALT Alkaline Phosphatase Total Protein Albumin Globulin Albumin/Globulin Ratio Specimen Hemolysis PG Care Time/CCT Total # of Minutes Spent Total Time Spent with Patient: Total time spent is greater than 50% in coordination of care (as documented) at patient's floor/unit and/or counseling patient: (1) Hypertension Hypertension type: unspecified Qualified Code(s): I10 - Essential (primary) hypertension
[2019-11-08] MEDS: NIFEdipine EXTENDED REL 30 MG TABCR PO SCH (12:58)
[2019-11-08] MEDS: MAGNESIUM OXIDE 400 MG TAB PO SCH (16:47)
[2019-11-08] MEDS: ATORVASTATIN 20 MG TAB PO SCH (20:47)
[2019-11-08] MEDS: INSULIN GLARGINE SOLOSTAR 100 UNITS/ML 3 ML PEN SQ SCH (20:54)
[2019-11-09] MEDS: LEVOTHYROXINE SODIUM 25 MCG TABLET PO SCH (06:12)
[2019-11-09 06:24] LABS: Hematocrit (blood only) 27.7 % (37-47); Hemoglobin 9.8 g/dL (12.0-16.0); Mean Corpuscular Hemoglobin 34.9 pg (25-34); Mean Corpuscular Hgb Conc 35.4 g/dL (32-36); Mean Corpuscular Volume 98.6 fL (80-100); Mean Platelet Volume 9.1 fL (7.4-10.4); Platelet Count 126 K/uL (130-400); RDW Coefficient of Variation 12.2 % (11.5-14.5); RDW Standard Deviation 44.3 fL (36.4-46.3); Red Blood Count 2.81 M/uL (4.2-5.4); White Blood Count 5.25 K/uL (4.8-10.8)
[2019-11-09 07:01] LABS: BUN Creatinine Ratio 23.8 (10-20); Calcium 8.8 mg/dl (8.5-10.1); Creatinine Clr Calc Pharmacy 19.8 ml/min; Est GFR (African American) 22.8; Est GFR (Non-African American) 19.7
[2019-11-09] MEDS: INSULIN ASPART 100 UNITS/ML 3 ML PEN SC SCH ×2 (08:32→13:35)
[2019-11-09] MEDS: HEPARIN SOD 5,000 UNIT/0.5 ML VIAL SQ SCH (08:33)
[2019-11-09] MEDS: LORATADINE 10 MG TAB PO SCH (08:34)
[2019-11-09] MEDS: FUROSEMIDE 40 MG TAB PO SCH (08:35)
[2019-11-09] MEDS: ASCORBIC ACID 500 MG TAB PO SCH (08:35)
[2019-11-09] MEDS: ASPIRIN 81 MG ECTAB PO SCH (08:35)
[2019-11-09] MEDS: carvediloL 25 MG TAB PO SCH (08:35)
[2019-11-09] MEDS: CLOPIDOGREL BISULFATE 75 MG TAB PO SCH (09:21)
[2019-11-09] MEDS: MULTIVITAMIN TAB PO SCH (09:21)
[2019-11-09] MEDS: NIFEdipine EXTENDED REL 30 MG TABCR PO SCH (09:21)
[2019-11-09] MEDS: CHOLECALCIFEROL 1,000 UNITS 25 MCG TAB PO SCH (09:21)
--- NOTE | 2019-11-09 10:25 | Nephrology Progress Note ---
Date of Service November 09, 2019 Assessment & Plan (1) Acute kidney injury superimposed on chronic kidney disease: -- CKD III with a baseline creatinine of 1.5-2.0 mg/dL -- CKD attributed to diabetic nephropathy qand hypertensive nephrosclerosis -- Duplex did not demonstrate NICK -- DHRUV consistent with KIMANI or ATN -- Creatinine improving suggesting renal recovery -- Non-oliguric -- BP acceptable at this time -- Continue furosemide to maintain a slightly negative fluid balance -- Continue nifedipine 30 mg daily -- Will continue to hold Losartan for now but suspect that we could safely restart as kidney function improves -- Continue to document I/O's -- If BP reasonably well controlled today, we should be able to safely discharge home from a renal standpoint -- I can arrange outpatient follow up with me in the nephrology clinic for next couple of weeks, I have requested this be scheduled (2) Hypertension: -- As noted above Subjective No acute events overnight. Alyx feels well today. Ambulating in [place]. She denies any lightheadedness or dizziness. Fluid retention significantly improved. Alyx hopes to be discharged home today. Review of Systems Review of Systems: All systems reviewed & are unremarkable except as noted in HPI & below Physical Exam Constitutional: well developed; no acute distress Eyes: no scleral abnormality and no corneal abnormality ENMT: Mouth: no oral mucosal abnormality and oral mucous membranes not dry Neck: normal visual inspection, trachea midline and + thick neck Respiratory: normal respiratory effort Auscultation: lungs clear to auscultation bilaterally Cardiovascular: Rate/Rhythm: regular rate Heart Sounds: normal S1 and normal S2 Extremities: no edema Gastrointestinal (Abdomen): Percussion/Palpation: abdomen soft; abdomen nontender Musculoskeletal: Extremities: no cyanosis and no clubbing Skin: normal turgor; no lesions Neurologic: Motor/Sensory: no tremor and no asterixis Psychiatric: Orientation: alert and oriented x 3 Results & Data Vital Signs (Past 12 Hours) Vital Signs Temp Pulse Pulse Resp BP Pulse Ox 11/09/19 08:29 36.8 C 69 18 106/61 95 11/09/19 07:00 72 11/09/19 03:52 36.9 C 71 20 128/66 97 11/08/19 23:42 36.9 C 70 19 104/50 L 96 Laboratory Results Laboratory Results - last 24 hr 11/08/19 11/08/19 11/08/19 11:45 16:33 20:50 WBC RBC Hgb Hct MCV MCH MCHC RDW Std Deviation RDW Coeff of Yesica Plt Count MPV Sodium Potassium Chloride Carbon Dioxide Anion Gap BUN Creatinine Est Cr Clr Drug Dosing Est GFR ( Amer) Est GFR (Non-Af Amer) BUN/Creatinine Ratio Glucose POC Glucose 263 H 177 H 143 H Calcium Iron Transferrin Transferrin % Sat Ferritin 11/09/19 11/09/19 11/09/19 06:07 06:07 07:56 WBC 5.25 RBC 2.81 L Hgb 9.8 L Hct 27.7 L MCV 98.6 MCH 34.9 H MCHC 35.4 RDW Std Deviation 44.3 RDW Coeff of Yesica 12.2 Plt Count 126 L MPV 9.1 Sodium 137 Potassium 4.0 Chloride 104 Carbon Dioxide 26 Anion Gap 7.0 BUN 56 H Creatinine 2.33 H D Est Cr Clr Drug Dosing 19.8 Est GFR ( Amer) 22.8 Est GFR (Non-Af Amer) 19.7 BUN/Creatinine Ratio 23.8 H Glucose 87 POC Glucose 109 H Calcium 8.8 Iron 93 Transferrin 169 L Transferrin % Sat 39 Ferritin 181.0 PG Care Time/CCT Total # of Minutes Spent Total Time Spent with Patient: Total time spent is greater than 50% in coordination of care (as documented) at patient's floor/unit and/or counseling patient: (1) Hypertension Hypertension type: unspecified Qualified Code(s): I10 - Essential (primary) hypertension
--- NOTE | 2019-11-09 17:18 | Discharge Summary ---
Date of Service November 09, 2019 Admission HPI Per Admitting Provider The patient is a 74-year-old female with a past medical history including hypertension, carotid artery disease, chronic kidney disease, hypertension, cerebrovascular disease, hyperlipidemia, diabetes mellitus, proliferative diabetic retinopathy, gastroparesis, hypothyroidism and essential hypertension. She presents to the emergency department with complaints of nausea accompanying abdominal discomfort that began 2 days prior to arrival. She was seen in the emergency department 2 days previously, due to elevated blood pressure. She reports no change in usual dietary pattern or exercise pattern, and she franklyn nues to avoid sodium. Admission Exam Per Admitting Provider The patient is awake, alert and oriented 3, well developed and well nourished, normocephalic and atraumatic, lying in bed and in no acute distress. HEENT--PERRL, EOMI, mucous membranes and oropharynx dry. Neck--supple. No JVD. No bruits. Thyroid normal, trachea midline, no adenopathy. Heart--normal S1 and S2. No murmurs, rubs or gallops. Lungs--clear bilaterally, no respiratory distress, no accessory muscle use. Abdomen--normal bowel sounds and soft. Nontender. Nondistended. Mild left lower quadrant discomfort. Extremities--no cyanosis or clubbing. No edema. There are good distal pulses b/l. Dermatologic--normal skin turgor, normal color, no abnormal lymph nodes, no rash. Neurologic--cranial nerves II through XII grossly intact. Rheumatologic--normal range of motion. Psychiatric--normal affect. Principal Diagnosis Acute Renal Failure, Uncontrolled Hypertension Discharge Exam General: Resting comfortably HEENT: NC/AT; PERRLA with EOMI; [place] conjunctiva, MMM. No erythema of posterior pharynx Neck: Supple and nontender Cardiac: RRR Lungs: CTA bilaterally Abdomen: Bowel normoactive X 4; Nontender to palpation Extremities: Warm. No hand edema noted. Mild +1 non pitting LE ankle edema. Neuro: No focal weakness Skin: No rash Discharge Data Allergies Allergy/AdvReac Type Severity Reaction Status Date / Time cortisone Allergy Mild "muscle Verified 11/05/19 17:08 weakness, makes me feel weird" clams Allergy Unknown VOMITING Verified 11/05/19 17:08 prednisone Allergy Unknown "MAKES ME Verified 11/05/19 17:08 FEEL WEIRD AND SPACEY" Consultations 11/05/19 20:27 ED Decision to Admit Stat 11/05/19 22:40 Consult Case Management - Discharge Planning Routine Consult Nephrology Routine Ordered Studies 11/05/19 16:29 CT abd pelvis wo con Stat 11/06/19 08:34 US duplex renal artery Urgent Hospital Course (1) Acute kidney injury superimposed on chronic kidney disease: Acute kidney injury -- possibly related to ATN from IV dye administration. Creatinine is slowly improving, was 2.3 on day of discharge; baseline ~1.5-1.9. Non anion gap metabolic acidosis also resolved (was likely related to NS infusion) U/a was negative. CT A/P showed bilat nephrolithiasis, mod bilat perinephric edema. Renal artery duplex was negative. Not currently on IV fluids; receiving Lasix 40 mg PO daily for volume overload -- continue at discharge. Nephro consulted, appreciate input. F/u with nephro in clinic. Script provided for outpatient labs on or Saturday. Holding home ARB - will need to resume once Cr is close to baseline due to uncontrolled HTN. (2) Edema: Developed hand/feet edema; edema now improved after starting Lasix. Weight gain ~3 kg, net +6,000 following admission -- related to continuous IV fluid hydration. Most recent echo February 2019 showed preserved EF, no evidence of diastolic dysfunction. Will continue Lasix 40 mg PO daily at discharge. (3) Essential (primary) hypertension: BP has been elevated during this admission - related to IV fluids and holding home ARB. Renal artery duplex negative for renal artery stenosis. Continued Coreg 25 mg BID; increased Hydralazine to 100 mg TID & started Lasix 40 mg PO daily. Cannot tolerate Amlodipine - h/o LE edema; started Nifedipine 30 mg daily per nephro. Hold home ARB due to ARF - will need to resume once Cr is close to baseline. Nephro following, appreciate input. (4) Dehydration: See above, Cr remains elevated but is slowly improving. Dehydration now resolved. (5) Carotid artery disease: CTA completed prior to admission showed right ICA stenosis 75% left ICA stenosis 30%. Pt. will need urgent f/u with vascular surgery. Continued Atorvastatin 20 mg qhs, Plavix 75 mg daily and ASA 81 mg (6) Cerebrovascular disease: Pt. reported feeling "spacey" on day of admission -- possibly related to uremic encephalopathy vs. dehydration vs. neuro event. Significant carotid artery stenosis - consider imaging of brain for recurrent symptoms. Symptoms resolved within 24 hours. (7) Hyperlipidemia: Continued Atorvastatin 20 mg daily. (8) Hypothyroidism: Continued Levothyroxine 25 mcg daily. TSH is 3.4. (9) Pancreatic lesion: 1.4 cm pancreatic tail lesion noted on CT. Will need close outpatient follow up. (10) Anemia: Hgb below baseline, likely partially dilutional related to IV fluids. (11) Diabetes mellitus, type 2: Hgb A1C 6.3 - encourage carb consistent diet and weight loss. SSI coverage with Lantus 20 units qhs. (12) DVT prophylaxis: Heparin q12hr. Discharged to home on 11/09/19. Total Time Total Time Spent Total Time Spent (In Minutes): >30 minutes Total Time Includes: Examination of the Patient, Discharge Planning, Medication Reconciliation, Communication With Other Providers and Other Discharge Plan Discharge Items Patient Disposition: Home - Self-Care Reason For Visit: DHRUV ON CKD,UREMIA Discharge Diagnosis: Acute Kidney Injury, Uncontrolled Hypertension Condition on Discharge: Fair Goals: You have been hospitalized for an acute medical problem. During your stay at [facility], we have made an effort to correct the problem that brought you to the hospital while keeping you as comfortable as possible. Medications were used to bring your condition under control and your discharge instructions will include directions for any medications you should take after leaving the hospital. Please make sure you see your Primary Care Provider as part of your follow up plan. Activity: As commented below Exercise/Sports: Gradually increase as tolerated Non-emergency contact: Primary Care Provider, Surgeon and Employee Welfare Manager Call non-emergency contact if: you have any medication questions, your symptoms worsen and you have a fever Follow-up/Referrals: Thi Cherry CRNP [Primary Care Provider] - 11/11/19 12:30 pm (Please, follow up with Thi BURKS on SaturdayNovember 11 at 12:30 pm. *If you need to change this appointment, call the office at [phone].) Pastor Jameson DO [Physician] - 11/19/19 3:40 pm (Please, follow up at [facility] Nephrology Office with Dr. Pastor Jameson on November 19 at 3:40 pm. *The office is located in [address] of [facility], next to this hospital. If you need to change this appointment, call the office at [phone].) Sin Bustillos MD [Physician] - (Please, follow up at [facility] Surgery Office with Dr. Bustillos. *A nurse from this office will call you with the appointment information. The office is located at [address] [place] [address] in [place], next to [facility]. If you have any questions, call the office at [phone].) Diet: Carb Consistent or DM2 and Heart Healthy Ambulatory Orders: Basic Metabolic Panel (Routine) Timeframe: 3 Days Location: Determined by Patient Ordered By: Christen Shea Attending Provider Instructions: 1. Acute Kidney Injury * Creatinine is now improving; a script was provided for outpatient labs -- please have lab collected on or Saturday of this week. Results will be faxed to Dr. Jameson. * Please follow up with Dr. Jameson as scheduled on 11/19/19. * Hold home Losartan until follow up with Dr. Jameson. * Lasix 40 mg daily has been started; please monitor daily weights at home. 2. Hypertension * Please continue Coreg as prescribed. * Hydralazine has been increased to 100 mg three times daily. * Nifedipine 30 mg daily has been started along with Lasix 40 mg daily. * Please hold home Losartan unless instructed otherwise by Dr. Jameson or KIMMIE Bueno. 3. Carotid artery stenosis * You will need to follow up with Dr. Bustillos in the near future. * Continue ASA, Plavix and atorvastatin as prescribed. 4. Diabetes Mellitus * Please resume home medication regimen as prescribed. * F/u with PCP to discuss blood glucose management. Pending Studies at Discharge: No Stand-Alone Forms: My [facility] [employer] Medications and DC Order Prescriptions: New nifedipine [Procardia XL] 30 mg Tablet Extended Release 24hr 30 mg PO QAM 30 Days Qty: 30 RF: 1 furosemide 40 mg Tablet 40 mg PO QAM 30 Days Qty: 30 RF: 1 aspirin [Ecotrin Low Strength] 81 mg Tablet,Delayed Release (Dr/Ec) 81 mg PO QAM 1 Days Qty: 1 RF: 0 Continued atorvastatin 20 mg tablet 20 mg PO HS Qty: 30 RF: 11 (DME) OneTouch Ultra Blue Test Strip strip See Dose Instructions .ROUTE .MEDSUPPLY Qty: 100 RF: 3 carvedilol 25 mg tablet 25 mg PO BID Qty: 180 RF: 3 (DME) pen needle, diabetic [BD Ultra-Fine Keri Pen Needle] 32 gauge x 5/32" needle See Dose Instructions .ROUTE .MEDSUPPLY Qty: 10 RF: 0 clotrimazole-betamethasone 1-0.05 % cream 1 appln topical BID PRN (Reason: flare ups) Qty: 1 RF: 0 (DME) blood-glucose meter [OneTouch UltraMini] kit See Dose Instructions .ROUTE .MEDSUPPLY Qty: 1 RF: 0 multivitamin Tablet 1 tab PO QAM RF: 0 coenzyme Q10 [Co Q-10] 100 mg Capsule 0 mg PO QDD RF: 0 cholecalciferol (vitamin D3) [Vitamin D3] 2,000 unit Tablet 4,000 unit PO QAM RF: 0 omega [id number] oil [Fish Oil] 1,000 mg (120 mg-180 mg) Capsule 1 cap PO QAM RF: 0 magnesium oxide 400 mg Capsule 400 mg PO QDD RF: 0 ascorbic acid (vitamin C) 500 mg Capsule 1 cap PO BID RF: 0 Novolog Flexpen U-100 Insulin 100 unit/mL (3 mL) insulin pen See Rx Instructions SUBCUT AC RF: 0 loratadine 10 mg Tablet 10 mg PO QAM RF: 0 clopidogrel 75 mg Tablet 75 mg PO QAM Qty: 30 RF: 0 Basaglar KwikPen U-100 Insulin 100 unit/mL (3 mL) insulin pen 30 units SUBCUT HS RF: 0 meclizine 25 mg tablet 25 mg PO TID PRN (Reason: dizziness) Qty: 20 RF: 0 levothyroxine 25 mcg tablet 25 mcg PO QAM RF: 0 Changed hydralazine 100 mg tablet 100 mg PO TID Qty: 90 RF: 1 Discontinued losartan 100 mg tablet 100 mg PO QAM Qty: 90 RF: 5 Discharge Orders: Discharge Order (Routine); Ordered 11/09/19 Ordered By: Christen Delgrosso Krames/Other Patient Handouts: A1C Admission Data Admit Date/Time: 11/05/19 21:45 Attending Provider: Nomi Rizo Admit Provider: Marcus Turcios Primary Care Provider: Thi Cherry Other Providers: Marcus Turcios ; Pastor Jameson Other Interventions: Discharge Summary Assessment (RN) Last Done: 11/09/19 13:54 DC Date/Time DO NOT enter until pt leaves facility: 11/09/19 15:15 Supervising Physician Co-Signing Physician Notes Patient seen and examined with Christen Chappell PA-C. I agree with with her D/C summary. Pt was seen at [facility] for acute on chronic kidney disease and uremia. Pt needs to follow up as outpatient with Dr. Pastor Jameson in the nephrology clinic for next couple of weeks,Dr. Jameson will request the appointment to be scheduled.Follow up with PCP in 7 days and repeat CBC and CMP at that visit.
== END 2019-11-09 15:15 | disposition home or self-care (01) | DRG 683 ==
LOC: ED 15:30 → SUATTDRO 21:45 → 2N 21:45